=== PATIENT | male | born 1980 | race Caucasian/White ===

== ENCOUNTER 2021-12-20 14:22 | Emergency (ER) | payer OTHER, SELFPAY ==
[2021-12-20 14:25] VITALS: BP 144/92; PULSE 102; RESP 16; TEMP 36.8; O2SAT 97
--- NOTE | 2021-12-20 14:38 | ED.ANIMALBIT ---
HPI - Animal Bite General Chief Complaint: Animal Bite Stated Complaint: Animal Bite Time Seen by Provider: 12/20/21 14:24 History of Present Illness HPI narrative: 41-year-old male presents to the emergency room stating that he was bitten by a dog 4 days ago. Patient states dog was unknown to him, and appeared to be a pitbull terrier. Patient reports suffered multiple bites to his right posterior leg, has been treating with Tylenol and ibuprofen and frequently cleaning it with an iodine solution. Patient is a known diabetic. States today the leg became red and swollen. Denies calling law enforcement or animal control regarding the situation. Related Data Allergies Allergy/AdvReac Type Severity Reaction Status Date / Time No Known Allergies Allergy Verified 12/20/21 14:32 Review of Systems Review of Systems: CONSTITUTIONAL: Denies fever, chills, or sweats. EYES: Denies visual changes, redness, or discharge. ENT: Denies rhinorrhea, congestion, sore throat, or otalgia. CARDIOVASCULAR: Denies chest pain, palpitations, or edema. RESPIRATORY: Denies cough or dyspnea. GASTROINTESTINAL: Denies abdominal pain, nausea, vomiting, or diarrhea. GENITOURINARY: Denies dysuria or hematuria. SKIN: Denies rash or itching. Dog bite to posterior surface of her right lower leg MUSCULOSKELETAL: Denies back pain, joint pain, or myalgia. NEUROLOGIC: Denies headache, numbness, dizziness, or weakness. PSYCHIATRIC: Denies anxiety or depression. [facility] Past Medical History Medical History (Updated 12/20/21 @ 15:11 by Yaron Baker, INSTITUTIONAL ASSET MANAGER) Diabetes 1.5, managed as type 2 Exam Narrative: GENERAL: Well-appearing, well-nourished, and in no acute distress. HEAD: Normocephalic, atraumatic. EYES: PERRLA and EOMI. ENT: Nares clear, no rhinorrhea or epistaxis. Mucous membranes moist. Oropharynx without tonsillar hypertrophy exudate or other lesions. Bilateral TMs pearly cochran nonbulging NECK: Supple. No adenopathy or masses. No carotid bruits or JVD CHEST: Clear to auscultation. No respiratory distress. No wheezes rales or rhonchi HEART: Regular rate and rhythm. No murmur heard. Normal peripheral pulses. ABDOMEN: Soft, nontender, nondistended, normal active bowel sounds. EXTREMITIES: Normal range of motion. No edema. SKIN: Warm, dry, no rash. 1.5 cm linear laceration to posterior surface right lower extremity with surrounding soft tissue swelling and erythema NEURO: No focal deficits. Alert and oriented x3. PSYCH: Normal mood and affect. Course Vital Signs Vital signs: Vital Signs Temperature 36.8 C 12/20/21 14:25 Pulse Rate 102 H 12/20/21 14:25 Respiratory Rate 16 12/20/21 14:25 Blood Pressure 144/92 H 12/20/21 14:25 Pulse Oximetry 97 12/20/21 14:25 Temperature 36.8 C 12/20/21 14:25 Pulse Rate 102 H 12/20/21 14:25 Respiratory Rate 16 12/20/21 14:25 Blood Pressure 144/92 H 12/20/21 14:25 Pulse Oximetry 97 12/20/21 14:25 MDM - Animal Bite MDM Narrative Medical decision making narrative: 41-year-old status post dog bite 3 days ago. Wounds cleaned and dressed. White count slightly elevated 11.2. Glucose 258. Patient refused rabies treatment at this time discussed the risks and benefits of not getting treatment. Patient stated understanding. We will send patient home on a 10day course of clindamycin. Lab Data Result diagrams: 12/20/21 14:43 12/20/21 14:43 Labs: Lab Results 12/20/21 12/20/21 Range/Units 14:43 14:43 WBC 11.2 H (4.5-10.0) K/mm3 RBC 4.91 (4.6-6.20) M/mm3 Hgb 14.3 (14.0-18.0) g/dL Hct 42.0 (42.0-52.0) % MCV 85.5 (80-100) fl MCH 29.1 (26-34) pg MCHC 34.0 (32-36) g/dl RDW 12.9 (11.5-14.5) % Plt Count 339 (150-375) k/mm3 MPV 9.2 (7.4-10.4) fl Immature Gran % (Auto) 0.3 (0-0.5) % Neut % (Auto) 70.4 (45.5-73.1) % Lymph % (Auto) 15.0 L (18.3-44.2) % [place] % (Auto) 6.1 (2.6-8.5) % Eos % (Auto) 7.7 H
[2021-12-20] MEDS: CLINDAMYCIN 600 MG/D5W 50 ML 600 MG/50 ML PIGGYBACK 100 MG IVPB (14:44)
[2021-12-20] MEDS: TETANUS,DIPHTHERIA,AC PERTUSSIS ADULT (0.5 ML) BOOSTRIX IM (14:45)
[2021-12-20 14:51] LABS: Basophils Absolute Auto 0.1 K/mm3 (0.0-0.1); Basophils Percent Auto 0.5 % (0.2-1.2); Eosinophils Absolute Auto 0.9 K/mm3 (0-0.3); Eosinophils Percent Auto 7.7 % (0-4.4); Hemoglobin 14.3 g/dL (14.0-18.0); Immature Granulocyte Absolute 0.03 K/mm3 (0.00-0.031); Immature Granulocyte Percent A 0.3 % (0-0.5); Lymphocytes Absolute Auto 1.68 K/mm3 (0.9-3.2); Mean Corpuscular Hemoglobin 29.1 pg (26-34); Mean Corpuscular Volume 85.5 fl (80-100); Mean Platelet Volume 9.2 fl (7.4-10.4); Monocytes Absolute Auto 0.7 K/mm3 (0.1-0.6); Monocytes Percent Auto 6.1 % (2.6-8.5); Neutrophils Absolute Auto 7.9 K/mm3 (1.3-6.7); Neutrophils Percent Auto 70.4 % (45.5-73.1); Platelet Count Result 339 k/mm3 (150-375); Red Blood Count 4.91 M/mm3 (4.6-6.20); Red Cell Distribution Width 12.9 % (11.5-14.5); White Blood Count 11.2 K/mm3 (4.5-10.0)
--- NOTE | 2021-12-20 14:52 | PC.NURSE ---
cleansed patient right calf with normal saline. dried blood removed and the small puncture sites cleansed as well. gauze in place and secured with solis wrap. patient tolerated well
[2021-12-20 15:08] LABS: Alanine Aminotransferase 20 U/L (4-50); Albumin Level 4.2 g/dL (3.5-5.1); Alkaline Phosphatase 62 U/L (38-126); Anion Gap 9 mmol/L (8-16); Aspartate Amino Transferase 28 U/L (17-59); Bilirubin,Total 0.4 mg/dL (0.2-1.3); Blood Urea Nitrogen 7 mg/dL (9-20); Calcium 8.6 mg/dL (8.4-10.2); Carbon Dioxide 27 mmol/L (22-30); Chloride 101 mmol/L (98-107); Estimated Glomerular Filt Rate > 60; Glucose 258 mg/dL (65-110); Potassium 4.5 mmol/L (3.4-5.0); Sodium 137 mmol/L (137-145)
[2021-12-20 15:42] VITALS: BP 133/80; PULSE 90; RESP 20; TEMP 36.6; O2SAT 97
== END 2021-12-20 15:43 | disposition home or self-care (01) ==
LOC: ANHED 15:28
PROVIDERS: Emergency Provider Nurse Practitioner Family; PCP Internal Medicine
DX: S81.851A Open bite, right lower leg, initial encounter (principal); Z23 Encounter for immunization; E13.8 Other specified diabetes mellitus with unspecified complications; W54.0XXA Bitten by dog, initial encounter
CPT/HCPCS: 36415; 80053; 85025; 90471; 90715; 96365; 99284

== ENCOUNTER 2022-05-23 15:36 | Outpatient (CLI) | payer OTHER, SELFPAY ==
[2022-05-23 19:40] LABS: Alanine Aminotransferase 22 U/L (6-50); Albumin Level 4.2 g/dL (3.5-5.1); Alkaline Phosphatase 62 U/L (38-126); Anion Gap 7 mmol/L (8-16); Aspartate Amino Transferase 27 U/L (17-59); Bilirubin,Total 0.3 mg/dL (0.2-1.3); Blood Urea Nitrogen 14 mg/dL (9-20); Calcium 9.3 mg/dL (8.4-10.2); Carbon Dioxide 31 mmol/L (22-30); Chloride 97 mmol/L (98-107); Estimated Glomerular Filt Rate > 60; Glucose 363 mg/dL (65-110); Potassium 4.9 mmol/L (3.4-5.0); Sodium 135 mmol/L (137-145)
[2022-05-23 19:53] LABS: Basophils Absolute Auto 0.1 K/mm3 (0.0-0.1); Basophils Percent Auto 1.2 % (0.2-1.2); Eosinophils Absolute Auto 0.6 K/mm3 (0-0.3); Eosinophils Percent Auto 8.2 % (0-4.4); Hematocrit 44.8 % (42.0-52.0); Hemoglobin 14.7 g/dL (14.0-18.0); Immature Granulocyte Absolute 0.08 K/mm3 (0.00-0.031); Immature Granulocyte Percent A 1.2 % (0-0.5); Lymphocytes Absolute Auto 1.48 K/mm3 (0.9-3.2); Lymphocytes Percent Auto 21.4 % (18.3-44.2); Mean Corpuscular HGB Conc 32.8 g/dl (32-36); Mean Corpuscular Hemoglobin 28.6 pg (26-34); Mean Corpuscular Volume 87.2 fl (80-100); Mean Platelet Volume 9.6 fl (7.4-10.4); Monocytes Absolute Auto 0.8 K/mm3 (0.1-0.6); Monocytes Percent Auto 11.3 % (2.6-8.5); Neutrophils Absolute Auto 3.9 K/mm3 (1.3-6.7); Neutrophils Percent Auto 56.7 % (45.5-73.1); Platelet Count Result 331 k/mm3 (150-375); Red Blood Count 5.14 M/mm3 (4.6-6.20); Red Cell Distribution Width 13.3 % (11.5-14.5); White Blood Count 6.9 K/mm3 (4.5-10.0)
[2022-05-23 21:45] LABS: Creatinine Urine 56.2 mg/dL
[2022-05-23 21:49] LABS: MALB Creatinine Ratio 25.3 mg/g (0-30); Microalbumin Urine Random 14.2 mg/L (0-16.7)
[2022-05-23 22:02] LABS: Hemoglobin A1C 12.3 % (<5.7)
== END 2022-05-23 15:37 | disposition home or self-care (01) ==
LOC: ANHGOSHLAB 15:37
PROVIDERS: PCP Internal Medicine; Visit Provider Nurse Practitioner
DX: E10.9 Type 1 diabetes mellitus without complications (principal)
CPT/HCPCS: 36415; 80053; 82043; 83036; 85025

== ENCOUNTER 2022-07-05 13:44 | Outpatient (CLI) | payer OTHER, SELFPAY ==
--- NOTE | 2022-07-05 13:50 | ECHO_ITS ---
Patient Info Name: Jim Santos Age: 41 years : 1980 Gender: Male Ht: 71 in Wt: 215 lbs BSA: 2.23 m2 HR: 71 bpm BP: 146 / 90 mmHg Technical Quality: Good Exam Date: 07/05/2022 2:38 PM Exam Location: [facility] Patient Status: Outpatient Admit Date: 07/05/2022 Staff Ordering Physician: Karen Sim Etl Manager: Karen Melvin RDCS Attending Provider: Karen Sim Referring Physician: Chiquis MCCOY; Exam Type: CA echo doppler color flow Study Info Indications R01.1 - Cardiac murmur, unspecified Complete two-dimensional, color flow and Doppler transthoracic echocardiogram is performed. Summary 1. Complete two-dimensional, color flow and Doppler transthoracic echocardiogram is performed. 2. Left ventricular chamber dimension is mildly enlarged. 3. Left ventricular systolic function is globally mildly reduced, estimated at 45-50%. 4. The left ventricular diastolic function is grade I diastolic dysfunction. 5. Right ventricular systolic function is reduced based on abnormal TAPSE 1.6 cm. 6. 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 7. There is trace tricuspid valve regurgitation. 8. No pulmonary hypertension, estimated pulmonary arterial systolic pressure is 14 mmHg. Left Ventricle E/e' 7 is not elevated. Left ventricular chamber dimension is mildly enlarged. Left ventricular systolic function is globally mildly reduced, estimated at 45-50%. The left ventricular diastolic function is grade I diastolic dysfunction. Right Ventricle Right ventricular systolic function is reduced based on abnormal TAPSE 1.6 cm. Right ventricular chamber dimension is not well visualized. Left Atria Left atrial chamber dimension is normal. Right Atria Right atrial chamber dimension is normal. Atrial Septum Interatrial septal aneurysm with no evidence of shunting by color doppler. Aortic Valve The aortic valve is trileaflet. There is no aortic valve stenosis. There is no aortic valve regurgitation. Pulmonic Valve There is no pulmonic regurgitation. Mitral Valve There is no mitral valve stenosis. There is no mitral valve regurgitation. Tricuspid Valve There is trace tricuspid valve regurgitation. No pulmonary hypertension, estimated pulmonary arterial systolic pressure is 14 mmHg. Pericardium/Pleural There is no pericardial effusion. Inferior Vena Cava Normal inferior vena cava with >50% collapse upon inspiration consistent with normal right atrial pressure, 5 mmHg. Aorta The aortic root size at the sinus of Valsalva is normal. Left Ventricular Outflow Tract Name Value Normal LVOT 2D LVOT Diameter 2.2 cm LVOT Doppler LVOT Peak Gradient 3 mmHg LVOT Mean Gradient 2 mmHg LVOT VTI 15 cm LVOT VTI/AV VTI Ratio 1.0 LVOT Stroke Volume 53 ml LVOT CO 5.0 l/min LVOT CI 2.2 l/min/m2 Pulmonic Valve -----
== END 2022-07-05 13:45 | disposition home or self-care (01) ==
PROVIDERS: PCP Internal Medicine; Visit Provider Clinical Nurse Specialist
DX: R01.1 Cardiac murmur, unspecified (principal); Q24.9 Congenital malformation of heart, unspecified
CPT/HCPCS: 93306

== ENCOUNTER 2022-07-06 09:39 | Outpatient (CLI) | payer OTHER, SELFPAY ==
--- NOTE | ~2022-07-06 | MR_ITS ---
EXAMINATION: MR brain/brain stem wo/w con DATE: 07/06/2022 10:21 INDICATION: Reports of TIA like symptoms. TECHNIQUE: Magnetic resonance imaging (MRI) of the brain and brainstem was performed without and with 14 mL MultiHance intravenous contrast. Sequences included sagittal and axial T1-weighted SE, axial d iffusion-weighted FS EPI ASSET, axial T2*-weighted GRE, axial T2-weighted FLAIR Propeller, and axial T2-weighted Propeller. Postcontrast axial and coronal T1-weighted SE was obtained. Apparent diffusion coefficient (ADC) maps were created. COMPARISON: None. FINDINGS: No abnormal restricted diffusion to suggest acute ischemic infarct. No MRI evidence of hemorrhage or extra-axial collection. No suspicious foci of susceptibility to suggest prior intraparenchymal hemorr barber. No significant white matter change. No evidence of advanced or lobar predominant parenchymal vo lume loss. Basilar cisterns are patent. Flow voids are preserved. No abnormal intracranial enhancemen t. Mucosal thickening in the frontal, ethmoid and maxillary sinuses. Retention cysts or polyps in the right maxillary sinus. No abnormal enhancement. Posterior scalp lipoma. IMPRESSION: 1. No acute intracranial process. Reviewed, dictated and finalized at location K.
== END 2022-07-06 09:40 | disposition home or self-care (01) ==
PROVIDERS: PCP Internal Medicine; Visit Provider Clinical Nurse Specialist
DX: E10.9 Type 1 diabetes mellitus without complications (principal); R29.810 Facial weakness; R42 Dizziness and giddiness; Z82.3 Family history of stroke
CPT/HCPCS: 70553; A9577

== ENCOUNTER 2022-09-06 11:16 | Outpatient (CLI) | payer OTHER, SELFPAY ==
[2022-09-06 18:40] LABS: Hemoglobin A1C 9.5 % (<5.7)
[2022-09-06 19:15] LABS: Creatinine Urine 125.6 mg/dL
[2022-09-06 19:17] LABS: Anion Gap 18 mmol/L (8-16); Blood Urea Nitrogen 18 mg/dL (9-20); Calcium 9.7 mg/dL (8.4-10.2); Carbon Dioxide 28 mmol/L (22-30); Chloride 99 mmol/L (98-107); Estimated Glomerular Filt Rate > 60; Glucose 59 mg/dL (65-110); Potassium 3.7 mmol/L (3.4-5.0); Sodium 145 mmol/L (137-145)
[2022-09-06 19:24] LABS: MALB Creatinine Ratio 55.5 mg/g (0-30); Microalbumin Urine Random 69.7 mg/L (0-16.7)
== END 2022-09-06 11:17 | disposition home or self-care (01) ==
LOC: ANHGOSHLAB 11:18
PROVIDERS: PCP Internal Medicine; Referring Provider Nurse Practitioner; Visit Provider Clinical Nurse Specialist
DX: E11.9 Type 2 diabetes mellitus without complications (principal)
CPT/HCPCS: 36415; 80048; 82043; 83036

== ENCOUNTER 2022-09-16 14:26 | Outpatient (CLI) | payer OTHER, SELFPAY ==
[2022-09-16 17:42] LABS: HDL Direct 39 mg/dL
[2022-09-16 17:52] LABS: LDL Cholesterol Direct 142 mg/dL
[2022-09-16 18:12] LABS: Thyroid Stimulating Hormone 0.804 uIU/mL (0.465-4.680)
== END 2022-09-16 14:27 | disposition home or self-care (01) ==
LOC: ANHWCLAB 14:26
PROVIDERS: PCP Internal Medicine; Visit Provider Internal Medicine Endocrinology, Diabetes & Metabolism
DX: E10.65 Type 1 diabetes mellitus with hyperglycemia (principal)
CPT/HCPCS: 36415; 83718; 83721; 84443

== ENCOUNTER 2023-05-22 12:19 | Observation (INO) | payer OTHER, SELFPAY ==
[2023-05-22] VITALS (29 sets, daily range): BP systolic 119–158; BP diastolic 71–103; PULSE 95–113; RESP 12–22; TEMP 36.6–37; O2SAT 92–98; BMI 38.6
--- NOTE | ~2023-05-22 | XR_ITS ---
XR_KUBGTUBINS_CR INDICATION: Evaluate NG tube position. TECHNIQUE: Limited KUB perform for evaluating NG tube . COMPARISON: No prior studies for comparison. FINDINGS: NG tube tip in the stomach. Visualized bowel gas pattern is unremarkable.Moderate colonic fecal loading. IMPRESSION: 1: NG tube tip in the stomach. Reviewed, dictated and finalized at location A.
--- NOTE | ~2023-05-22 | US_ITS ---
US venous doppler [facility] DATE: 05/23/2023 13:21 INDICATION: Swelling of the upper extremities TECHNIQUE: Real-time and color flow imaging and Doppler analysis of the veins of the upper extremitie s COMPARISON: None FINDINGS: The internal jugular veins, subclavian veins, axillary, brachial, basilic, cephalic, radial and ulnar veins are patent bilaterally, with normal flow and augmentation and normal compression whe re applicable. IMPRESSION: No evidence of deep venous thrombosis of the upper extremities Reviewed, dictated and finalized at Location A. Reviewed, dictated and finalized at location B.
--- NOTE | ~2023-05-22 | CT_ITS ---
EXAMINATION: CT abdomen pelvis w con DATE: 05/22/2023 15:13 INDICATION: Abdominal pain TECHNIQUE: Computed tomography (CT) of the abdomen and pelvis was performed with 100 cc Omnipaque 350 intravenous contrast. The dose-length product was 1729.66 mGy-cm. Automated exposure control and ite rative reconstruction technique were employed. COMPARISON: CT dated 07/11/2018. FINDINGS: There is lower lobe atelectasis bilaterally. Heart size normal. No significant pleural or p ericardial effusion. There is moderate distention of the stomach which contains a large amount of manuel ris and fluid. No obstruction. Severely distended bladder. There are focal areas of decreased attenuation in the liver parenchyma of the right hepatic lobe, pos sibly focal fatty infiltration. The spleen, pancreas, adrenal glands and kidneys are unremarkable. No significant vascular abnormality. There are calcifications of the vas deferens. There is mild osteoa rthritis of the hips. No free air or free fluid. IMPRESSION: 1. Severely enlarged bladder. 2: Moderate gastric distention containing a large amount of debris and fluid. No obstruction identifi ed. Reviewed, dictated and finalized at location A. IMPRESSION: 1. Severely enlarged bladder. 2: Moderate gastric distention containing a large amount of debris and fluid. N o obstruction identified.
[2023-05-22 12:43] LABS: Glucose Point of Care > 500 mg/dl (65-105)
[2023-05-22 12:51] LABS: Basophils Percent Auto 0.1 % (0.2-1.2); Eosinophils Percent Auto 0.1 % (0-4.4); Hematocrit 44.2 % (42.0-52.0); Hemoglobin 14.6 g/dL (14.0-18.0); Immature Granulocyte Absolute 0.08 K/mm3 (0.00-0.031); Immature Granulocyte Percent A 0.5 % (0-0.5); Lymphocytes Absolute Auto 0.59 K/mm3 (0.9-3.2); Lymphocytes Percent Auto 3.9 % (18.3-44.2); Mean Corpuscular Hemoglobin 29.2 pg (26-34); Mean Corpuscular Volume 88.4 fl (80-100); Mean Platelet Volume 9.8 fl (7.4-10.4); Monocytes Absolute Auto 0.7 K/mm3 (0.1-0.6); Monocytes Percent Auto 4.5 % (2.6-8.5); Neutrophils Absolute Auto 13.8 K/mm3 (1.3-6.7); Neutrophils Percent Auto 90.9 % (45.5-73.1); Platelet Count Result 293 k/mm3 (150-375); Red Cell Distribution Width 12.6 % (11.5-14.5); White Blood Count 15.2 K/mm3 (4.5-10.0)
[2023-05-22] MEDS: SODIUM CHLORIDE 0.9% IV 1,000 ML 999 ML IV CONT (12:51)
[2023-05-22 13:00] LABS: Alveolar/Arterial O2 Gradient 35.3 mmHg; Base Excess ABG -1.5 mEq/l (+/-2.0); Carboxyhemoglobin 1.1 % THb (0-2.0); Fractional Inspired Oxygen 21 %; HCO3 ABG 23.8 mEq/l (22.0-26.0); Methemoglobin ABG 0.4 %THb (0-1.5); Oxygen Content ABG 18.9 %vol (16.0-22.0); Oxygen Saturation ABG 91.8 % (95.0-100.0); Oxyhemoglobin 90.5 % THb (90.0-100.0); PCO2 ABG 42.3 mmHg (35.0-45.0); PO2 ABG 63.8 mmHg (80.0-100.0); PO2 FiO2 Ratio Arterial Blood 3.04 %; Total Hemoglobin 14.9 g/dL (12.0-18.0); pH ABG 7.368 (7.350-7.450)
[2023-05-22 13:01] LABS: Device ROOM AIR; Site Drawn LEFT BRACHIAL
[2023-05-22 13:05] LABS: Alanine Aminotransferase 32 U/L (6-50); Albumin Level 4.3 g/dL (3.5-5.1); Alkaline Phosphatase 60 U/L (38-126); Anion Gap 10 mmol/L (8-16); Aspartate Amino Transferase 23 U/L (17-59); Bilirubin,Total 0.2 mg/dL (0.2-1.3); Blood Urea Nitrogen 17 mg/dL (9-20); Carbon Dioxide 25 mmol/L (22-30); Chloride 102 mmol/L (98-107); Estimated CRCL calculation 115 ml/min; Estimated Glomerular Filt Rate > 60; Glucose 519 mg/dL (65-110); Magnesium 2.2 mg/dL (1.6-2.3); Phosphorus 3.1 mg/dL (2.5-4.5); Potassium 4.5 mmol/L (3.4-5.0); Sodium 137 mmol/L (137-145)
[2023-05-22 13:06] LABS: Beta-Hydroxybutyrate/Acetoacetate 0.12 mmol/L (0.02-0.27)
[2023-05-22] MEDS: ONDANSETRON INJ 4 MG/2 ML VIAL 8 MG IV PUSH (13:28)
[2023-05-22 13:43] LABS: Appearance Urine Clear (Clear); Bacteria Urine 3+ /hpf; Bilirubin Urine Negative (Negative); Blood Urine Trace (Negative); Color Urine Yellow (Yellow); Glucose Urine UA 3+ mg/dL (Negative); Ketones Urine Negative (Negative); Leukocyte Esterase Ur Negative LEU/UL (Negative); Need Manual Microscopic Reviewed; Nitrate Urine Negative (Negative); Protein Urine Trace mg/dL (Negative); RBC Urine 0-2 /hpf (0-2); Squamous Epithelial Cell Urine None seen /hpf (Few); Urobilinogen Urine 0.2 mg/dL (<2.0); WBC Urine >100 /hpf
[2023-05-22 13:46] LABS: Specific Grav Ur 1.044 (1.001-1.035)
[2023-05-22 13:47] LABS: Add Urine Microscopic? YES
--- NOTE | 2023-05-22 13:47 | ED.GENADULT ---
HPI - General Adult General Chief complaint: Recheck/Abnormal Lab/Rx Stated complaint: hyperglycemia Time Seen by Provider: 05/22/23 13:08 Source: patient and family Limitations: no limitations History of Present Illness HPI narrative: 42 years old white male started on prednisone yesterday for possible poison dai, blood glucose reading today was high and patient was acting lethargic and tired. On arrival to the ED patient had vomited once, complaining also of abdominal pain. Related Data Allergies Allergy/AdvReac Type Severity Reaction Status Date / Time piperacillin Allergy Intermediate Itching Verified 05/22/23 12:37 tazobactam Allergy Intermediate Itching Verified 05/22/23 12:37 Review of Systems Review of Systems: All systems reviewed & are unremarkable except as noted in HPI and below PMFSH Past Medical History Medical History Type 1 diabetes Surgical History Surgical History Hx of appendectomy Hx of cholecystectomy Family History Family History Mother Cerebrovascular accident Sibling Cerebrovascular accident Social History Social History Smoking status: Never smoker Smokeless tobacco user: chewing tobacco Second hand tobacco smoke exposure: No Alcohol intake: never Substance use: current Substance use type: marijuana Spiritual care concerns: No Exam Narrative: General appearance: Well-developed, well-nourished Skin: Scattered hives all over mainly face Head: Normocephalic, nontraumatic Eyes: Clear conjunctiva ENT: Oropharynx normal, ears normal, nose normal Neck: Supple, nontender Chest and respiratory: Airway patent, no respiratory distress, no accessory muscle use few scattered rhonchi with intermittent coughing Heart: Regular rate/rhythm Abdomen: Soft, large, diffusely tender,, no organomegaly, quiet bowel sounds Vascular: Normal peripheral pulses, normal capillary refill. Musculoskeletal: Normal range of motion, nontender back Neurologic: Alert and oriented ?3, BATTERY REPAIRER is normal as tested, no gross motor deficit Course Consultations Consultation #1: Dr. Trejo Date: 05/22/23 Time: 18:46 Vital Signs Vital signs: Vital Signs Temperature 36.6 C 05/22/23 12:22 Pulse Rate 111 H 05/22/23 12:22 Respiratory Rate 17 05/22/23 12:22 Blood Pressure 141/94 H 05/22/23 12:22 Pulse Oximetry 94 05/22/23 12:22 Oxygen Delivery Room Air 05/22/23 12:22 Temperature 37.0 C 05/22/23 18:28 Pulse Rate 103 H 05/22/23 18:28 Respiratory Rate 14 05/22/23 18:28 Blood Pressure 135/79 05/22/23 18:28 Pulse Oximetry 98 05/22/23 18:28 Oxygen Delivery Room Air 05/22/23 12:22 Medical Decision Making MDM Narrative Medical decision making narrative: Patient presents with lethargy, itching, elevated blood glucose. Patient's type 2 diabetes, started on prednisone yesterday for contact dermatitis. Patient received 20 units of insulin prior to arrival to the emergency room. Physical examination showed maculopapular rash, hives all over. Large distended abdomen. Patient is not cooperative. His mother was at the bedside. IV fluid started, patient received 2.5 L of normal saline IV and blood glucose is still 390, IV insulin drip started. Patient reports some abdominal pain since yesterday Differential diagnosis: Contact dermatitis, hyperglycemia secondary to prednisone intake, infection, abdominal pain could be secondary to constipation, patient had history of cholecystectomy and Wo
[2023-05-22 14:07] LABS: Glucose Point of Care 391 mg/dl (65-105)
[2023-05-22] MEDS: EPINEPHrine HCL INJ 1 MG/ML AMPUL 0.3 MG IM (14:21)
[2023-05-22] MEDS: methylPREDNISolone SOD SUCC 40 MG VIAL IV PUSH (14:22)
[2023-05-22] MEDS: diphenhydrAMINE HCl INJ 50 MG/ML VIAL IV PUSH (14:22)
[2023-05-22] MEDS: INSULIN HUMAN REGULAR (*BKC) 100 UNITS in SODIUM CHLORIDE 0.9% IV 99 ML 6.62 UNITS IV CONT (14:43)
[2023-05-22 15:56] LABS: Glucose Point of Care 397 mg/dl (65-105)
[2023-05-22] MEDS: METOCLOPRAMIDE HCL INJ 10 MG/2 ML VIAL IV PUSH (16:37)
[2023-05-22] MEDS: LORazepam INJ (*CRX) 2 MG/ML VIAL 1 MG IV PUSH (16:40)
[2023-05-22 17:02] LABS: Glucose Point of Care 420 mg/dl (65-105)
--- NOTE | 2023-05-22 17:23 | PC.NURSE ---
Attempted NG insertion on this pt at 1640 , pt began gagging and vomiting. Pt then began begging for the procedure to be stopped. MD notified that pt could not tolerate at this time. Medications ordered and administered per order. After medications administered pt was asked if the procedure could be retried, pt still hesitant education provided as to benefit of procedure. notified and communicated to TERRAZZO WORKER Irina
[2023-05-22 17:57] LABS: Glucose Point of Care 378 mg/dl (65-105)
[2023-05-22] MEDS: SODIUM CHLORIDE 0.9% IV 1,000 ML 125 ML IV CONT ×2 (17:59→20:28)
--- NOTE | 2023-05-22 18:05 | ADMGEN ---
This patient, Jim Santos, was admitted to Intensive Care Unit-4. Patient/family oriented to hospital policies and general routines including ID bracelet, bed and alarms, visiting hours, pain management, procedures, bathroom and other care routines, personal items, smoking policy, room service/diet, and visiting hours. Information on how to activate the Rapid Response Team has been discussed. Patient/Family are encouraged to report perceived risks to care and to ask questions if they do not understand what they are told or what they should do.
--- NOTE | 2023-05-22 18:29 | PC.NURSE ---
[email or web address] Admission Note: The patient,Jim Santos,42 y/o, was given written information regarding hospital policies, unit procedures and contact persons. Patient's smoking status: Never smoker.
[2023-05-22 18:45] LABS: Glucose Point of Care 328 mg/dl (65-105)
--- NOTE | 2023-05-22 19:16 | PM.IMHP ---
H&P: HPI History of Present Illness Date/Time: 05/22/23 19:16 Chief Complaint: Abnormal lab Narrative: This is a 42-year-old male patient who has diabetes type 1. The patient's mother is at the bedside and she is answering questions for the patient. The patient is very somnolent. According to the patient's mother the patient had been in skilled nursing and his insulin had gotten change. She the mother stated that ever since he got out of skilled nursing he has been trying to get his blood sugars back down to normal. The patient was seen yesterday and treated for poison dai he was given prednisone. The patient has a rash all over his torso bilateral arms with swelling to his left arm. The patient had taken 6 of the tablets of the Medrol Dosepak yesterday and 3 today. The patient's blood sugar was high today and he was acting lethargic and tired. His abdomen was distended. The patient was complaining of abdominal pain. His white count was noted to be 15.2. Blood sugar was noted to be 519. Repeat Accu-Cheks were 397, 233 and 117. The patient has 3+ glucose in his urine. He has greater than 100 wbc's and 3+ bacteria. The patient was given a dose of Rocephin in the emergency room. The patient was given IV fluids, Zofran, epinephrine, Benadryl, Solu-Medrol, Reglan and Ativan. The forensic investigator had been consulted by the ED physician. The patient had been placed on a insulin drip. The patient does not have any anion gap. However his blood sugars were highly elevated the patient was lethargic. Abdominal pelvis CT was read as severely enlarged bladder. Moderate gastric distention containing a large amount of debris and fluid. No obstruction identified. An NG tube had been placed and was in the tip of the stomach. However the patient woke up in pulled the NG tube out refused another NG tube.. The patient is being admitted to observation status on the date of service of 05/22/2023 Review of Systems Review of Systems: All systems reviewed & are unremarkable except as noted in HPI and below Constitutional: Constitutional: Reports as per HPI and Reports no additional constitutional complaints Eyes: Eyes: Reports as per HPI and Reports no additional eye complaints ENT: Reports system reviewed and no additional complaints, except as documented and Reports Normal hearing present Cardiovascular: Cardiovascular: Reports no additional cardiovascular complaints Respiratory: Respiratory: Reports no additional respiratory complaints and Reports no additional respiratory complaints Gastrointestinal: Gastrointestinal: Reports as per HPI and Reports no additional gastrointestinal complaints Musculoskeletal: Musculoskeletal: Reports no additional musculoskeletal complaints Integumentary/Breasts: Skin/Breast: Reports system reviewed and no additional complaints, except as docu and Reports as per HPI Neurologic: Reports system reviewed and no additional complaints, except as documented, Reports as per HPI and Reports Normal hearing present Psychiatric: Psychiatric: Reports no additional psychiatric complaints and Reports as per HPI Endocrine: Endocrine: Reports no additional endocrine complaints Hematologic/Lymphatic: Hematologic/Lymphatic: Reports no additional hematologic/lymphatic complaints Allergic/Immunologic: Allergic/Immunologic: Reports no additional allergic/immunologic complaints PMF Past Medical History Medical History (Updated 05/22/23 @ 23:16 by Sallie Stephens NP) Chronic GERD Type 1 diabetes Surgical History Surgical History Hx of appendectomy Hx of cholecystectomy Family History Family History Mother Cerebrovascular accident Sibling Cerebrovascular accident Social History Social History (Updated 05/22/23 @ 23:07 by Sallie Stephens NP) Social History: The patient is single. He lives with his brother. He has 2 children
[2023-05-22 20:05] LABS: Glucose Point of Care 233 mg/dl (65-105)
[2023-05-22 20:59] LABS: Glucose Point of Care 173 mg/dl (65-105)
[2023-05-22 22:04] LABS: Glucose Point of Care 117 mg/dl (65-105)
--- NOTE | 2023-05-22 22:44 | PC.NURSE ---
Pt pulled out NG tube. States he is feeling better and is refusing to allow staff to replace NG. Notified LACEY Rizo.
[2023-05-22 23:05] LABS: Glucose Point of Care 91 mg/dl (65-105)
[2023-05-23] VITALS (13 sets, daily range): BP systolic 106–148; BP diastolic 62–85; PULSE 71–91; RESP 11–20; TEMP 36.4–36.9; O2SAT 92–100; BMI 37.7
[2023-05-23 00:09] LABS: Glucose Point of Care 86 mg/dl (65-105)
[2023-05-23] MEDS: INSULIN GLARGINE (*BKC) 100 UNITS/ML 20 UNITS SUB-Q (00:16)
[2023-05-23] MEDS: levoFLOXacin 500 MG/D5W 100 ML 500 MG/100 ML BAG 100 MG IVPB ×2 (00:22→23:50)
[2023-05-23 03:36] LABS: Glucose Point of Care 220 mg/dl (65-105)
[2023-05-23 04:53] LABS: Basophils Percent Auto 0.3 % (0.2-1.2); Eosinophils Percent Auto 0.1 % (0-4.4); Hematocrit 39.8 % (42.0-52.0); Hemoglobin 13.1 g/dL (14.0-18.0); Immature Granulocyte Absolute 0.12 K/mm3 (0.00-0.031); Immature Granulocyte Percent A 0.8 % (0-0.5); Lymphocytes Absolute Auto 1.08 K/mm3 (0.9-3.2); Lymphocytes Percent Auto 7.2 % (18.3-44.2); Mean Corpuscular HGB Conc 32.9 g/dl (32-36); Mean Corpuscular Hemoglobin 29.7 pg (26-34); Mean Corpuscular Volume 90.2 fl (80-100); Mean Platelet Volume 9.8 fl (7.4-10.4); Monocytes Absolute Auto 0.7 K/mm3 (0.1-0.6); Monocytes Percent Auto 4.9 % (2.6-8.5); Neutrophils Absolute Auto 13.1 K/mm3 (1.3-6.7); Neutrophils Percent Auto 86.7 % (45.5-73.1); Platelet Count Result 239 k/mm3 (150-375); Red Blood Count 4.41 M/mm3 (4.6-6.20); Red Cell Distribution Width 13.2 % (11.5-14.5); White Blood Count 15.1 K/mm3 (4.5-10.0)
[2023-05-23 05:03] LABS: Alanine Aminotransferase 24 U/L (6-50); Albumin Level 3.4 g/dL (3.5-5.1); Alkaline Phosphatase 44 U/L (38-126); Anion Gap 8 mmol/L (8-16); Aspartate Amino Transferase 18 U/L (17-59); Bilirubin,Total 0.2 mg/dL (0.2-1.3); Blood Urea Nitrogen 18 mg/dL (9-20); Calcium 7.9 mg/dL (8.4-10.2); Carbon Dioxide 24 mmol/L (22-30); Chloride 110 mmol/L (98-107); Estimated CRCL calculation 140 ml/min; Estimated Glomerular Filt Rate > 60; Glucose 236 mg/dL (65-110); Magnesium 2.1 mg/dL (1.6-2.3); Potassium 3.9 mmol/L (3.4-5.0); Sodium 142 mmol/L (137-145)
[2023-05-23] MEDS: INSULIN ASPART (*BKC) 100 UNITS/ML SUB-Q ×3 (05:23→22:01)
[2023-05-23 05:24] LABS: Glucose Point of Care 245 mg/dl (65-105)
[2023-05-23] MEDS: SODIUM CHLORIDE 0.9% IV 1,000 ML 125 ML IV CONT ×3 (05:24→23:50)
[2023-05-23 05:47] LABS: Thyroid Stimulating Hormone Reflex 0.233 uIU/mL (0.465-4.68)
[2023-05-23] MEDS: LACTATED RINGERS 1,000 ML 999 ML IV CONT (08:01)
[2023-05-23] MEDS: ENOXAPARIN 40 MG/0.4 ML SYRINGE SUB-Q (08:13)
[2023-05-23] MEDS: PANTOPRAZOLE SODIUM IV 40 MG VIAL IV PUSH ×2 (08:13→22:01)
[2023-05-23] MEDS: methylPREDNISolone SOD SUCC 125 MG VIAL 40 MG IV PUSH (08:14)
[2023-05-23 08:21] LABS: Free T4 Free Thyroxine Reflex 0.98 ng/dL (0.78-2.19)
--- NOTE | 2023-05-23 08:25 | WPDCNINT ---
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 According to the medical records patient was recently discharged from the alf 1 week ago, according to his mother he was not receiving the correct insulin in alf. -patient was given 2 L IV fluid bolus in the ER and started on insulin infusion for hyperglycemia. Patient did not have anion gap metabolic acidosis, beta hydroxybutyrate was within normal limits -patient also was being treated for poison dai on his upper extremities and torso with prednisone which could have led to elevation in his blood sugars. Patient also has a UTI -05/22: CT scan of the abdomen and pelvis showed severely enlarged bladder, moderate gastric distention containing large amount of debris and fluid, no obstruction identified -NG tube was inserted, once patient was more he pulled out the NG tube and refused reinsertion. -OFF INSULIN INFUSION since last night -received Lantus, will give additional dose of Lantus this morning -continue sliding scale insulin -diabetic diet -will have asset liability analyst evaluate the patient (2) Urinary tract infection: Qualifiers: Hematuria presence: without hematuria Urinary tract infection type: site unspecified Qualified Code(s): N39.0 - Urinary tract infection, site not specified Code(s): N39.0 - Urinary tract infection, site not specified Status: Acute Assessment and Plan: UA showed possible UTI, urine and blood cultures cultures have been obtained and pending, continue ceftriaxone -elevated WBC could be related to infection versus steroids (3) Contact dermatitis: Qualifiers: Contact dermatitis trigger: non-food plants Contact dermatitis type: allergic Qualified Code(s): L23.7 - Allergic contact dermatitis due to plants, except food Code(s): L25.9 - Unspecified contact dermatitis, unspecified cause Status: Acute Assessment and Plan: Patient has methylprednisolone, diphenhydramine -will add topical steroid cream (4) Urinary retention: Code(s): R33.9 - Retention of urine, unspecified Status: Acute Assessment and Plan: Hoover catheter in place with adequate urine output (5) Gastroparesis: Code(s): K31.84 - Gastroparesis Status: Acute Assessment and Plan: Patient with distention of his abdomen the CT scan. Patient was given Reglan in the ER -could be related to gastroparesis secondary to diabetes -continue to monitor -starting patient on diet Plan DVT prophylaxis: Lovenox Stress ulcer prophylaxis: Protonix Nutrition: Start diabetic diet Code Status: Full code Critical Care Time Spent: 46 minutes Due to a high probability of clinically significant, life threatening deterioration, the patient required my highest level of preparedness to intervene emergently and I personally spent this critical care time directly and personally managing the patient. This critical care time included obtaining a history; examining the patient; pulse oximetry; ordering and review of studies; arranging urgent treatment with development of a management plan; evaluation of patient's response to treatment; frequent reassessment; and discussions with other providers. It was exclusive of separately billable procedures and treating other patients and teaching time. Please see Assessment and Plan section and the rest of the note for further information on patient assessment and treatment This dictation may have been done utilizing a voice recognition system. Attempt
[2023-05-23 08:36] LABS: Hemoglobin A1C 10.2 % (<5.7)
[2023-05-23] MEDS: HYDROCORTISONE 1% 30 GM CREAM 1 APPLIC TOPICAL ×2 (09:06→17:50)
[2023-05-23] MEDS: INSULIN GLARGINE (*BKC) 100 UNITS/ML 10 UNITS SUB-Q (09:06)
[2023-05-23 11:13] LABS: Total Triiodothyronine (T3) 0.92 NG/ML (0.97-1.69)
[2023-05-23 11:38] LABS: Glucose Point of Care 186 mg/dl (65-105)
--- NOTE | 2023-05-23 14:02 | PC.NURSE ---
This patient, Jim Santos, was transferred to [ ] on 05/23/23 at 1345. Personal belongings sent with patient. Report given to RN. Appropriate documentation sent with patient.
--- NOTE | 2023-05-23 14:19 | ADMGEN ---
This patient, Jim Santos, was admitted to 3 Medical Room 343-01 from ICU -4 @ 1400. Rep[ort was taken From CHOLO Trevizo .Patient/family oriented to hospital policies and general routines including ID bracelet, bed and alarms, visiting hours, pain management, procedures, bathroom and other care routines, personal items, smoking policy, room service/diet, and visiting hours. Information on how to activate the Rapid Response Team has been discussed. Patient/Family are encouraged to report perceived risks to care and to ask questions if they do not understand what they are told or what they should do.
[2023-05-23 17:05] LABS: Glucose Point of Care 339 mg/dl (65-105)
[2023-05-23] MEDS: INSULIN ASPART (*BKC) 100 UNITS/ML 7 UNITS SUB-Q (17:43)
[2023-05-23] MEDS: ALBUTEROL SULFATE (*SP) AEROSOL 1 PUFF 2 PUFF INHALATION (18:09)
[2023-05-23 21:21] LABS: Glucose Point of Care 353 mg/dl (65-105)
[2023-05-23] MEDS: INSULIN GLARGINE (*BKC) 100 UNITS/ML 25 UNITS SUB-Q (22:01)
--- NOTE | 2023-05-23 23:46 | PC.NURSE ---
2249: notified pharmacy of missing levaquin. Shows not loaded in medication pyxis. Await med.
[2023-05-24 06:00] VITALS: BP 133/70; PULSE 68; RESP 20; TEMP 36.4; O2SAT 98
[2023-05-24 08:39] LABS: Glucose Point of Care 296 mg/dl (65-105)
[2023-05-24] MEDS: methylPREDNISolone SOD SUCC 125 MG VIAL 40 MG IV PUSH (08:57)
[2023-05-24] MEDS: SODIUM CHLORIDE 0.9% IV 1,000 ML 125 ML IV CONT (08:57)
[2023-05-24] MEDS: PANTOPRAZOLE SODIUM IV 40 MG VIAL IV PUSH (08:58)
[2023-05-24] MEDS: ENOXAPARIN 40 MG/0.4 ML SYRINGE SUB-Q (08:59)
[2023-05-24] MEDS: INSULIN ASPART (*BKC) 100 UNITS/ML 7 UNITS SUB-Q ×3 (09:17→17:15)
[2023-05-24] MEDS: INSULIN ASPART (*BKC) 100 UNITS/ML SUB-Q ×4 (09:17→21:30)
[2023-05-24] MEDS: HYDROCORTISONE 1% 30 GM CREAM 1 APPLIC TOPICAL ×2 (09:21→20:30)
--- NOTE | 2023-05-24 12:14 | PM.IMPN ---
Progress Note: A&P Assessment and Plan (1) Diabetes mellitus with hyperglycemia: Qualifiers: Diabetes mellitus moth exterminator insulin use: with moth exterminator use Diabetes mellitus type: type 2 Qualified Code(s): E11.65 - Type 2 diabetes mellitus with hyperglycemia; Z79.4 - prison (current) use of insulin Code(s): E11.65 - Type 2 diabetes mellitus with hyperglycemia Status: Acute Assessment and Plan: Patient presented with nausea, vomiting, abdominal pain, lethargy. According to the medical records patient was recently discharged from the [place] [facility] 1 [facility] ago, according to his mother he was not receiving the correct insulin in [facility]. -patient was given 2 L IV fluid bolus in the ER and started on insulin infusion for hyperglycemia. Patient did not have anion gap metabolic acidosis, beta hydroxybutyrate was within normal limits -patient also was being treated for poison dai on his upper extremities and torso with prednisone which could have led to elevation in his blood sugars. Patient also has a UTI -05/22: CT scan of the abdomen and pelvis showed severely enlarged bladder, moderate gastric distention containing large amount of debris and fluid, no obstruction identified -NG tube was inserted, once patient was more he pulled out the NG tube and refused reinsertion. -OFF INSULIN INFUSION since 05/22 PM -received Lantus, will give additional dose of Lantus this morning -continue sliding scale insulin -diabetic diet -diabetic education - 05/24 stopped levaquin as urine c/s negative (2) Contact dermatitis: Qualifiers: Contact dermatitis trigger: non-food plants Contact dermatitis type: allergic Qualified Code(s): L23.7 - Allergic contact dermatitis due to plants, except food Code(s): L25.9 - Unspecified contact dermatitis, unspecified cause Status: Acute Assessment and Plan: -05/24 stop iv steroids, topical triamcinolone, po loratadine, famotidine, cyproheptadine, prn IV diphenhydramine - edema of hands likely due to IVF, dermatitis, no sign of infection; cannot exclude angioedema but unlikely at this stage (3) Urinary retention: Code(s): R33.9 - Retention of urine, unspecified Status: Acute Assessment and Plan: Hoover catheter in place with adequate urine output 05/24 d/c Hoover for voiding trial (4) Gastroparesis: Code(s): K31.84 - Gastroparesis Status: Acute Assessment and Plan: Patient with distention of his abdomen the CT scan. Patient was given Reglan in the ER -could be related to gastroparesis secondary to diabetes -continue to monitor -tolerating diet Subjective Date/time seen: 05/24/23 12:14 Interval history: Hands puffy. Mild itching. Feels tired. Tolerated diet. No cp or sob. Swelling in hands. No gi/gu issues. No ABNL bleeding. No weakness. Review of Systems Review of Systems: All systems reviewed & are unremarkable except as noted in HPI and below Exam Narrative: HEENT: PERRL, sclerae nonicteric, pharyngeal mucosa pink and intact NECK: No JVD, CHEST: Clear to auscultation. Normal effort. HEART: NL S1/S2, regular, no murmur ABDOMEN: BS+, soft, nontender, no mass, no bruits EXTREMITIES: Nonpitting 3+ edema of hands. NEUROLOGIC: CN intact and symmetric to inspection. MUSCULOSKELETAL: Tone and strength symmetric. PSYCH: Alert. Oriented to person, place, and time. Objective Data Vital Signs Vital Signs: Vital Signs - 24 hr 05/23/23 14:00 05/23/23 16:54 05/23/23 18:10 Temperature 98.2 F Pulse Rate 76 78 80 Respiratory Rate 18 20 Blood Pressure 134/72 Pulse Oximetry 95 Oxygen Delivery 05/23/23 18:12 05/23/23 22:00 05/23/23 23:02 Temperature 98.4 F Pulse Rate 78 Respiratory Rate 20 Blood Pressure 117/62 Pulse Oximetry 97 98 97 Oxygen Delivery Room Air Room Air 05/24/23 06:00 05/24/23 08:00 Temperature 97.6 F Pulse Rate 68 Respiratory Rate 20 Blood Pressure 133/70 Pulse O
[2023-05-24 12:48] LABS: Glucose Point of Care 243 mg/dl (65-105)
[2023-05-24] MEDS: LORATADINE 10 MG TABLET PO (13:08)
[2023-05-24] MEDS: FUROSEMIDE INJ 40 MG/4 ML VIAL 20 MG IV PUSH (13:08)
[2023-05-24] MEDS: TRIAMCINOLONE ACET 0.5% OINT 15 GM TUBE 1 APPLIC TOPICAL ×2 (13:09→17:18)
[2023-05-24] MEDS: CYPROHEPTADINE HCL 4 MG TABLET PO ×3 (13:55→23:36)
[2023-05-24 14:48] VITALS: BP 114/71; PULSE 82; RESP 17; TEMP 36.4; O2SAT 98
[2023-05-24 17:23] LABS: Glucose Point of Care 367 mg/dl (65-105)
[2023-05-24] MEDS: FAMOTIDINE 20 MG TABLET 40 MG PO (20:30)
[2023-05-24 21:26] VITALS: BP 118/72; PULSE 72; RESP 18; TEMP 36.5; O2SAT 98
[2023-05-24] MEDS: INSULIN GLARGINE (*BKC) 100 UNITS/ML 25 UNITS SUB-Q (21:29)
[2023-05-24] MEDS: INSULIN ASPART (*BKC) 100 UNITS/ML 8 UNITS SUB-Q (21:29)
[2023-05-24 21:41] LABS: Glucose Point of Care 378 mg/dl (65-105)
[2023-05-24 22:08] VITALS: O2SAT 98
[2023-05-24 23:47] LABS: Glucose Point of Care 288 mg/dl (65-105)
[2023-05-25] MEDS: CYPROHEPTADINE HCL 4 MG TABLET PO ×3 (05:06→18:08)
[2023-05-25 06:00] VITALS: BP 129/61; PULSE 51; RESP 16; TEMP 36.4; O2SAT 97
[2023-05-25 08:20] LABS: Glucose Point of Care 309 mg/dl (65-105)
[2023-05-25 08:37] LABS: Hematocrit 43.8 % (42.0-52.0); Hemoglobin 14.6 g/dL (14.0-18.0); Mean Corpuscular HGB Conc 33.3 g/dl (32-36); Mean Corpuscular Hemoglobin 29.4 pg (26-34); Mean Corpuscular Volume 88.1 fl (80-100); Mean Platelet Volume 9.7 fl (7.4-10.4); Platelet Count Result 256 k/mm3 (150-375); Red Blood Count 4.97 M/mm3 (4.6-6.20); Red Cell Distribution Width 12.7 % (11.5-14.5); White Blood Count 9.2 K/mm3 (4.5-10.0)
[2023-05-25 08:54] LABS: Anion Gap 3 mmol/L (8-16); Blood Urea Nitrogen 16 mg/dL (9-20); Calcium 8.3 mg/dL (8.4-10.2); Carbon Dioxide 27 mmol/L (22-30); Chloride 101 mmol/L (98-107); Estimated CRCL calculation 141 ml/min; Estimated Glomerular Filt Rate > 60; Glucose 292 mg/dL (65-110); Sodium 131 mmol/L (137-145)
[2023-05-25] MEDS: INSULIN ASPART (*BKC) 100 UNITS/ML 7 UNITS SUB-Q ×3 (08:54→18:07)
[2023-05-25] MEDS: FAMOTIDINE 20 MG TABLET 40 MG PO ×2 (08:55→21:40)
[2023-05-25] MEDS: LORATADINE 10 MG TABLET PO (08:55)
[2023-05-25] MEDS: INSULIN ASPART (*BKC) 100 UNITS/ML SUB-Q ×4 (08:55→21:40)
[2023-05-25] MEDS: ENOXAPARIN 40 MG/0.4 ML SYRINGE SUB-Q (08:56)
--- NOTE | 2023-05-25 09:50 | PM.IMPN ---
Progress Note: A&P Assessment and Plan (1) Diabetes mellitus with hyperglycemia: Qualifiers: Diabetes mellitus remote computer terminal operator insulin use: with remote computer terminal operator use Diabetes mellitus type: type 2 Qualified Code(s): E11.65 - Type 2 diabetes mellitus with hyperglycemia; Z79.4 - snf (current) use of insulin Code(s): E11.65 - Type 2 diabetes mellitus with hyperglycemia Status: Acute Assessment and Plan: Patient presented with nausea, vomiting, abdominal pain, lethargy. According to the medical records patient was recently discharged from the [facility] 1 week ago, according to his mother he was not receiving the correct insulin in [facility]. -patient was given 2 L IV fluid bolus in the ER and started on insulin infusion for hyperglycemia. Patient did not have anion gap metabolic acidosis, beta hydroxybutyrate was within normal limits -patient also was being treated for poison dai on his upper extremities and torso with prednisone which could have led to elevation in his blood sugars. Patient also has a UTI -05/22: CT scan of the abdomen and pelvis showed severely enlarged bladder, moderate gastric distention containing large amount of debris and fluid, no obstruction identified -NG tube was inserted, once patient was more he pulled out the NG tube and refused reinsertion. -OFF INSULIN INFUSION since 05/22 PM -received Lantus, will give additional dose of Lantus this morning -continue sliding scale insulin -diabetic diet -diabetic education - 05/24 stopped levaquin as urine c/s negative -05/25 FBS 292, expect improvement as no longer receiving IV methylprenisolone (2) Contact dermatitis: Qualifiers: Contact dermatitis trigger: non-food plants Contact dermatitis type: allergic Qualified Code(s): L23.7 - Allergic contact dermatitis due to plants, except food Code(s): L25.9 - Unspecified contact dermatitis, unspecified cause Status: Acute Assessment and Plan: -05/24 stopped iv steroids, started topical triamcinolone, po loratadine, famotidine, cyproheptadine, prn IV diphenhydramine - edema of hands likely due to IVF, dermatitis, no sign of infection; cannot exclude angioedema but unlikely at this stage -05/25 hand edema and dermatitis improving, repeat iv furosemide 20mg x1 today -Anticipate discharge 05/26 if he continues to improve (3) Urinary retention: Code(s): R33.9 - Retention of urine, unspecified Status: Acute Assessment and Plan: Hoover catheter in place with adequate urine output 05/24 d/c Hoover for voiding trial 05/25 doing well w/o Hoover (4) Gastroparesis: Code(s): K31.84 - Gastroparesis Status: Acute Assessment and Plan: Patient with distention of his abdomen the CT scan. Patient was given Reglan in the ER -could be related to gastroparesis secondary to diabetes -continue to monitor -tolerating diet - 05/25 added laxatives for constipation Subjective Date/time seen: 05/25/23 09:50 Interval history: Hands puffy and tight still but a little better. Mild itching. Feels tired. Tolerated diet. No cp or sob. No gi/gu issues. No ABNL bleeding. No weakness. Review of Systems Review of Systems: All systems reviewed & are unremarkable except as noted in HPI and below Exam Narrative: HEENT: PERRL, sclerae nonicteric, pharyngeal mucosa pink and intact NECK: No JVD, CHEST: Clear to auscultation. Normal effort. HEART: NL S1/S2, regular, no murmur ABDOMEN: BS+, soft, nontender, no mass, no bruits EXTREMITIES: Nonpitting 3+ edema of right hand, 2+ left hand, mild nonpitting puffiness of ankles SKIN: Fading patchy erythema with excoriation on hands, forearms. NEUROLOGIC: CN intact and symmetric to inspection. MUSCULOSKELETAL: Tone and strength symmetric. PSYCH: Alert. Oriented to person, place, and time. Objective Data Vital Signs Vital Signs: Vital Signs - 24 hr 05/24/23 14:48 05/24/23 21:26 05/24/23 22:08 Temperature 97.5 F L 97.7 F
[2023-05-25] MEDS: polyethylene glycoL 3350 17 GM POWD.PACK PO (10:24)
[2023-05-25] MEDS: TRIAMCINOLONE ACET 0.5% OINT 15 GM TUBE 1 APPLIC TOPICAL ×3 (10:24→18:10)
[2023-05-25] MEDS: POTASSIUM CHLORIDE 20 MEQ ER TABLET PO (10:25)
[2023-05-25] MEDS: FUROSEMIDE INJ 40 MG/4 ML VIAL 20 MG IV PUSH (10:25)
[2023-05-25] MEDS: SENNOSIDES 8.6 MG TABLET PO (10:25)
[2023-05-25 12:13] LABS: Glucose Point of Care 328 mg/dl (65-105)
[2023-05-25 14:00] VITALS: BP 127/79; PULSE 80; RESP 17; TEMP 36.2; O2SAT 97
[2023-05-25 18:10] LABS: Glucose Point of Care 310 mg/dl (65-105)
[2023-05-25 20:00] VITALS: PULSE 85; RESP 18; O2SAT 94
[2023-05-25 20:05] LABS: Glucose Point of Care 377 mg/dl (65-105)
[2023-05-25] MEDS: INSULIN GLARGINE (*BKC) 100 UNITS/ML 25 UNITS SUB-Q (21:40)
[2023-05-25 22:00] VITALS: BP 108/72; PULSE 85; RESP 18; TEMP 37.1; O2SAT 94
[2023-05-26] MEDS: CYPROHEPTADINE HCL 4 MG TABLET PO ×3 (00:22→12:26)
[2023-05-26 05:58] VITALS: BP 123/76; PULSE 73; RESP 18; TEMP 37; O2SAT 100
[2023-05-26 06:45] LABS: Hematocrit 46.6 % (42.0-52.0); Hemoglobin 15.6 g/dL (14.0-18.0); Mean Corpuscular HGB Conc 33.5 g/dl (32-36); Mean Corpuscular Hemoglobin 28.9 pg (26-34); Mean Corpuscular Volume 86.5 fl (80-100); Mean Platelet Volume 9.7 fl (7.4-10.4); Platelet Count Result 257 k/mm3 (150-375); Red Blood Count 5.39 M/mm3 (4.6-6.20); Red Cell Distribution Width 12.6 % (11.5-14.5); White Blood Count 7.8 K/mm3 (4.5-10.0)
[2023-05-26 06:55] LABS: Anion Gap 3 mmol/L (8-16); Blood Urea Nitrogen 21 mg/dL (9-20); Calcium 8.4 mg/dL (8.4-10.2); Carbon Dioxide 28 mmol/L (22-30); Chloride 97 mmol/L (98-107); Estimated CRCL calculation 138 ml/min; Estimated Glomerular Filt Rate > 60; Glucose 398 mg/dL (65-110); Potassium 4.1 mmol/L (3.4-5.0); Sodium 128 mmol/L (137-145)
[2023-05-26 08:07] LABS: Glucose Point of Care 384 mg/dl (65-105)
[2023-05-26] MEDS: INSULIN ASPART (*BKC) 100 UNITS/ML SUB-Q ×2 (08:57→12:27)
[2023-05-26] MEDS: INSULIN ASPART (*BKC) 100 UNITS/ML 7 UNITS SUB-Q ×2 (08:57→12:26)
[2023-05-26] MEDS: SENNOSIDES 8.6 MG TABLET PO (08:58)
[2023-05-26] MEDS: FAMOTIDINE 20 MG TABLET 40 MG PO (08:58)
[2023-05-26] MEDS: LORATADINE 10 MG TABLET PO (08:58)
[2023-05-26] MEDS: ENOXAPARIN 40 MG/0.4 ML SYRINGE SUB-Q (08:59)
[2023-05-26] MEDS: TRIAMCINOLONE ACET 0.5% OINT 15 GM TUBE 1 APPLIC TOPICAL ×2 (09:01→12:27)
[2023-05-26 12:17] LABS: Glucose Point of Care 308 mg/dl (65-105)
[2023-05-26 14:00] VITALS: BP 113/62; PULSE 100; RESP 16; TEMP 36.4; O2SAT 98
--- NOTE | 2023-05-26 14:06 | PM.DS ---
DS: Admitting Diagnosis Discharge Date 05/26/23 0915 Admitting Diagnosis Hyperglycemia, rash DS: Discharge Diagnosis Discharge Diagnosis (1) Diabetes mellitus with hyperglycemia: Qualifiers: Diabetes mellitus rodent exterminator insulin use: with rodent exterminator use Diabetes mellitus type: type 2 Qualified Code(s): E11.65 - Type 2 diabetes mellitus with hyperglycemia; Z79.4 - superintendent marine oil terminal (current) use of insulin Code(s): E11.65 - Type 2 diabetes mellitus with hyperglycemia Status: Acute Assessment and Plan: Patient presented with nausea, vomiting, abdominal pain, lethargy. According to the medical records patient was recently discharged from the group home 1 week ago, according to his mother he was not receiving the correct insulin in group home. -patient was given 2 L IV fluid bolus in the ER and started on insulin infusion for hyperglycemia. Patient did not have anion gap metabolic acidosis, beta hydroxybutyrate was within normal limits -patient also was being treated for poison dai on his upper extremities and torso with prednisone which could have led to elevation in his blood sugars. Patient also has a UTI -05/22: CT scan of the abdomen and pelvis showed severely enlarged bladder, moderate gastric distention containing large amount of debris and fluid, no obstruction identified -NG tube was inserted, once patient was more he pulled out the NG tube and refused reinsertion. -OFF INSULIN INFUSION since 05/22 PM -received Lantus, will give additional dose of Lantus this morning -continue sliding scale insulin -diabetic diet -diabetic education - 05/24 stopped levaquin as urine c/s negative -05/25 FBS 292, expect improvement as no longer receiving IV methylprenisolone (2) Contact dermatitis: Qualifiers: Contact dermatitis trigger: non-food plants Contact dermatitis type: allergic Qualified Code(s): L23.7 - Allergic contact dermatitis due to plants, except food Code(s): L25.9 - Unspecified contact dermatitis, unspecified cause Status: Acute Assessment and Plan: -05/24 stopped iv steroids, started topical triamcinolone, po loratadine, famotidine, cyproheptadine, prn IV diphenhydramine - edema of hands likely due to IVF, dermatitis, no sign of infection; cannot exclude angioedema but unlikely at this stage -05/25 hand edema and dermatitis improving, repeat iv furosemide 20mg x1 today -Anticipate discharge 05/26 if he continues to improve (3) Urinary retention: Code(s): R33.9 - Retention of urine, unspecified Status: Acute Assessment and Plan: Hoover catheter in place with adequate urine output 05/24 d/c Hoover for voiding trial 05/25 doing well w/o Hoover (4) Gastroparesis: Code(s): K31.84 - Gastroparesis Status: Acute Assessment and Plan: Patient with distention of his abdomen the CT scan. Patient was given Reglan in the ER -could be related to gastroparesis secondary to diabetes -continue to monitor -tolerating diet - 05/25 added laxatives for constipation DS: Summary Hospital Course Hospital Course: patient is a 42-year-old male with a past medical history of diabetes incurred who presented to the ED with complaints lethargy, hyperglycemia and rash. Upon arrival to the ED was noted the patient's blood sugar was 519. The defensive line coach was consulted and patient was placed on an insulin drip. Patient recently started today Solu-Medrol Dosepak for poison dai. Patient was also noted to have a possible UTI with 100 white blood cells and 3+ bacteria. Patient was started on Rocephin and IV fluids. Patient was then put in the step-down. Abdominal pelvis CT was read as severely enlarged bladder. It was also noted that he had large amounts of debris and fluid. in gastric distension was also noted. NG tube was placed however patient did wake up and pull the NG tube out. Urine culture appear to be contaminant and Levaquin which was used for possible UTI had been stopped. Patient was als
== END 2023-05-26 16:37 | disposition home or self-care (01) ==
LOC: ANHED 14:11 → ANHICU 19:05 → ANH3MED 05-26 14:29 → ANHICU 05-27 12:17
PROVIDERS: Internal Medicine; Nurse Practitioner; Admitting Provider Family Medicine; Emergency Provider Emergency Medicine; PCP Internal Medicine; Visit Provider Chiropractor
DX: E11.65 Type 2 diabetes mellitus with hyperglycemia (principal); N39.0 Urinary tract infection, site not specified; L23.7 Allergic contact dermatitis due to plants, except food; N32.89 Other specified disorders of bladder; R33.9 Retention of urine, unspecified; K31.84 Gastroparesis; R14.0 Abdominal distension (gaseous); K21.9 Gastro-esophageal reflux disease without esophagitis; Z97.8 Presence of other specified devices; D72.829 Elevated white blood cell count, unspecified; M79.89 Other specified soft tissue disorders; F12.90 Cannabis use, unspecified, uncomplicated; R10.9 Unspecified abdominal pain; F17.290 Nicotine dependence, other tobacco product, uncomplicated; Z79.4 Long term (current) use of insulin; Z79.51 Long term (current) use of inhaled steroids; Z79.899 Other long term (current) drug therapy
CPT/HCPCS: 36415; 36600; 74177; 80048; 80053; 81001; 82010; 82375; 82805; 82948; 83036; 83050; 83605; 83735; 84100; 84439; 84443; 84480; 85025; 85027; 87040; 87086; 87088; 93970; 94640; 96361; 96365; 96366; 96368; 96372; 96374; 96375; 96376; 99285; A9270; C9113; G0378; G0379; J0171; J0696; J1200; J1650; J1815; J1940; J1956; J2060; J2405; J2765; J2920; J2930; J7030; J7120; Q9967

== ENCOUNTER 2023-06-05 14:47 | Outpatient (CLI) | payer OTHER, SELFPAY ==
[2023-06-05 15:40] LABS: Basophils Absolute Auto 0.1 K/mm3 (0.0-0.1); Basophils Percent Auto 0.5 % (0.2-1.2); Eosinophils Absolute Auto 0.6 K/mm3 (0-0.3); Eosinophils Percent Auto 3.3 % (0-4.4); Hematocrit 44.6 % (42.0-52.0); Immature Granulocyte Absolute 0.13 K/mm3 (0.00-0.031); Immature Granulocyte Percent A 0.8 % (0-0.5); Lymphocytes Absolute Auto 2.24 K/mm3 (0.9-3.2); Lymphocytes Percent Auto 13.1 % (18.3-44.2); Mean Corpuscular HGB Conc 33.6 g/dl (32-36); Mean Corpuscular Hemoglobin 29.5 pg (26-34); Mean Corpuscular Volume 87.6 fl (80-100); Mean Platelet Volume 9.8 fl (7.4-10.4); Monocytes Absolute Auto 1.3 K/mm3 (0.1-0.6); Monocytes Percent Auto 7.5 % (2.6-8.5); Neutrophils Absolute Auto 12.8 K/mm3 (1.3-6.7); Neutrophils Percent Auto 74.8 % (45.5-73.1); Platelet Count Result 324 k/mm3 (150-375); Red Blood Count 5.09 M/mm3 (4.6-6.20); White Blood Count 17.1 K/mm3 (4.5-10.0)
[2023-06-05 15:47] LABS: Alanine Aminotransferase 26 U/L (6-50); Albumin Level 4.1 g/dL (3.5-5.1); Alkaline Phosphatase 68 U/L (38-126); Anion Gap 4 mmol/L (8-16); Aspartate Amino Transferase 25 U/L (17-59); Bilirubin,Total 0.7 mg/dL (0.2-1.3); Blood Urea Nitrogen 13 mg/dL (9-20); Calcium 9.1 mg/dL (8.4-10.2); Carbon Dioxide 30 mmol/L (22-30); Chloride 96 mmol/L (98-107); Estimated Glomerular Filt Rate > 60; Glucose 368 mg/dL (65-110); Potassium 4.4 mmol/L (3.4-5.0); Sodium 130 mmol/L (137-145)
[2023-06-05 15:56] LABS: Appearance Urine Clear (Clear); Bacteria Urine None Seen /hpf; Bilirubin Urine Negative (Negative); Blood Urine Negative (Negative); Color Urine Yellow (Yellow); Glucose Urine UA 3+ mg/dL (Negative); Ketones Urine Negative (Negative); Leukocyte Esterase Ur Negative LEU/UL (Negative); Mucus Urine Present /lpf; Need Manual Microscopic Reviewed; Nitrate Urine Negative (Negative); Non Pathogenic Casts 0-2; Protein Urine Trace mg/dL (Negative); RBC Urine 0-2 /hpf (0-2); Specific Grav Ur 1.032 (1.001-1.035); Squamous Epithelial Cell Urine None seen /hpf (Few); Urobilinogen Urine 0.2 mg/dL (<2.0); WBC Urine 0-5 /hpf; pH Urine 5.5 (5.0-9.0)
[2023-06-05 15:58] LABS: Add Urine Microscopic? YES
== END 2023-06-05 14:48 | disposition home or self-care (01) ==
LOC: ANHGOSHLAB 14:48
PROVIDERS: PCP Internal Medicine; Visit Provider Nurse Practitioner
DX: E11.65 Type 2 diabetes mellitus with hyperglycemia (principal); R00.0 Tachycardia, unspecified
CPT/HCPCS: 36415; 80053; 81001; 85025

== ENCOUNTER 2023-06-05 16:02 | Inpatient (IN) | payer OTHER, SELFPAY ==
[2023-06-05] VITALS (21 sets, daily range): BP systolic 111–162; BP diastolic 56–98; PULSE 96–111; RESP 12–25; TEMP 36.8–37.1; O2SAT 96–100; BMI 36.8
--- NOTE | ~2023-06-05 | CT_ITS ---
EXAMINATION: CT facial bones w con DATE: 06/09/2023 13:36 INDICATION: Abscess in the nose. TECHNIQUE: Computed tomography (CT) of the facial bones and maxillofacial region was performed with 7 5 mL Omnipaque 350 intravenous contrast. Automated exposure control and iterative reconstruction tech [employer] were employed. The dose-length product was 638.78 mGy-cm. COMPARISON: CT abdomen and pelvis 06/05/2023 FINDINGS: There is mild bilateral cervical lymphadenopathy, likely reactive. There is a 10 x 5 x 5 mm rim-enhancing mass in the inferior aspect of the nose on the right. There is soft tissue swelling of the upper lobe. There is mucosal thickening in the paranasal sinuses. There is rightward deviation o f the nasal septum. IMPRESSION: 1. Stable 10 x 5 x 5 mm rim-enhancing mass in the inferior aspect of the nose on the right, consisten t with an abscess. 2. Mild bilateral cervical lymphadenopathy, likely reactive. Reviewed, dictated and finalized at location A. IMPRESSION: 1. Stable 10 x 5 x 5 mm rim-enhancing mass in the inferior aspect of the nose o n the right, consistent with an abscess. 2. Mild bilateral cervical lymphadenopathy, likely reactive.
--- NOTE | ~2023-06-05 | CT_ITS ---
EXAMINATION: CT facial bones w con DATE: 06/05/2023 18:44 INDICATION: right facial swelling, elevated BG . TECHNIQUE: Computed tomography (CT) of the facial bones and maxillofacial region was performed withou t intravenous contrast. Automated exposure control and iterative reconstruction technique were employ ed. The dose-length product was 374.58 mGy-cm. COMPARISON: None. FINDINGS: Soft Tissues: 8 mm rim-enhancing fluid collection in the soft tissues at the base of the nose, to th e right of midline, just to the right of the maxillary spine. Facial bones: No acute fracture. No lytic or blastic process. Eyes: The globes are intact. The soft tissue planes of the orbits are maintained. Paranasal Sinuses: Nodular mucosal thickening in all visualized paranasal sinuses. Aerated secretion s in the right sphenoid sinus. The mastoid air cells are clear.. Foreign Bodies: No radiopaque foreign bodies. Other Findings: None. IMPRESSION: 8 mm soft tissue abscess at the base of the nose, just to the right of the maxillary spine. Mucoperiosteal sinus disease with findings that may represent acute sphenoid sinusitis in the appropr iate clinical context. Reviewed, dictated and finalized at location K. IMPRESSION: 8 mm soft tissue abscess at the base of the nose, just to the right of the maxi llary spine. Mucoperiosteal sinus disease with findings that may represent acute sphenoid si nusitis in the appropriate clinical context.
--- NOTE | ~2023-06-05 | XR_ITS ---
EXAMINATION: XR chest 2V Exam Date/Time: 06/05/2023 18:40 CDT HISTORY: cough, fever Comparison: 07/11/2018. RESULT: Lines, tubes, and devices: None. Lungs and pleura: Clear. Cardiomediastinal silhouette: Stable. Other: No acute osseous or upper abdominal finding. IMPRESSION: No acute cardiopulmonary process. Reviewed, dictated and finalized at location K.
--- NOTE | 2023-06-05 17:55 | ED.GENADULT ---
HPI - General Adult General Chief complaint: Recheck/Abnormal Lab/Rx <Neil Joyce PA-C - Last Filed: 06/06/23 02:11> Stated complaint: abnormal labs <JODY Patino Last Filed: 06/06/23 02:11> Time Seen by Provider: 06/05/23 17:00 <JODY Patino Last Filed: 06/06/23 02:11> Source: patient <JODY Patino Last Filed: 06/06/23 02:11> Mode of arrival: ambulatory <JODY Patino Last Filed: 06/06/23 02:11> Limitations: no limitations <JODY Patino Last Filed: 06/06/23 02:11> History of Present Illness HPI narrative: This is a 42-year-old male with PMH of type 1 diabetes who presents to the ED with concern of high blood sugars and feeling ill over the past week. Patient was admitted to the ICU with DKA and discharged about 1 week ago. He states he is feeling unwell since discharge. He reports some swelling to his bilateral hands. He reports swelling to the right side of his face along with pain in that location as well. Reports mild cough. Nonproductive. Reports subjective fevers and chills. Endorses malaise. Denies abdominal pain, nausea, vomiting, diarrhea, urinary symptoms, headache, chest pain, leg swelling. Denies IV drug use. <Neil Joyce PA-C - Last Filed: 06/06/23 02:11> Related Data Home medications: Home Medications Medication Instructions Recorded Confirmed albuterol sulfate 90 mcg/actuation 2 inh inhalation Q4-6H PRN 05/22/23 06/05/23 breath activated powder inhaler Shortness Of Breath Or Wheezing omeprazole 20 mg capsule,delayed 20 mg PO DAILY 05/22/23 06/05/23 release glucagon 1 mg/0.2 mL subcutaneous 1 mg subcut PRN PRN Hypoglycemia 06/05/23 06/05/23 auto-injector (Gvoke HypoPen 2-Pack) insulin lispro 100 unit/mL 10 unit subcut TID 06/05/23 06/05/23 subcutaneous pen (Humalog KwikPen (U-100) Insulin) <Neil Joyce PA-C - Last Filed: 06/06/23 02:11> Allergies/adverse reactions: Allergies Allergy/AdvReac Type Severity Reaction Status Date / Time piperacillin Allergy Intermediate Itching Verified 06/05/23 13:50 tazobactam Allergy Intermediate Itching Verified 06/05/23 13:50 <Neil Joyce PA-C - Last Filed: 06/06/23 02:11> Review of Systems Review of Systems: All systems as dictated in HPI <Neil Joyce PA-C - Last Filed: 06/06/23 02:11> [facility] Past Medical History Medical History: Medical History (Updated 06/05/23 @ 20:23 by Neil Joyce PA-C) Chronic GERD Type 1 diabetes <Neil Joyce PA-C - Last Filed: 06/06/23 02:11> Surgical History Surgical History: Surgical History Hx of appendectomy Hx of cholecystectomy <Neil Joyce PA-C - Last Filed: 06/06/23 02:11> Family History Family History: Family History Mother Cerebrovascular accident Sibling Cerebrovascular accident <Neil Joyce PA-C - Last Filed: 06/06/23 02:11> Social History Social History: Social History (Updated 06/05/23 @ 14:11 by Consuelo Knott [facility]) Social History: The patient is single. He lives with his brother. He has 2 children. Lifelong nonsmoker. He uses marijuana. Code status full code. Smoking status: Never smoker Second hand tobacco smoke exposure: No Alcohol intake: never Substance use: current Substance use type: marijuana Lack of Transportation: No Lack of Food: Never True Current Housing: I Have Housing Concerned About Future Housing: No Difficulty Paying Gas/Electric Bills: No Difficulty Paying for Meds: No Currently Unemployed: No Education: High School Diploma/GED Difficulty w/ Childcare or Family Care: No Spiritual care concerns: No <Neil Joyce PA-C - Last Filed: 06/06/23 02:11> Exam Narrative: GENERAL: Well-appearing, well-nourished, and in no acute distress. HEAD: Normocep
[2023-06-05] MEDS: SODIUM CHLORIDE 0.9% IV 1,000 ML 999 ML IV CONT ×2 (18:12→20:15)
[2023-06-05 18:26] LABS: Basophils Absolute Auto 0.1 K/mm3 (0.0-0.1); Basophils Percent Auto 0.6 % (0.2-1.2); Eosinophils Absolute Auto 0.5 K/mm3 (0-0.3); Eosinophils Percent Auto 3.4 % (0-4.4); Hematocrit 44.5 % (42.0-52.0); Hemoglobin 14.8 g/dL (14.0-18.0); Immature Granulocyte Absolute 0.08 K/mm3 (0.00-0.031); Immature Granulocyte Percent A 0.6 % (0-0.5); Lymphocytes Absolute Auto 1.94 K/mm3 (0.9-3.2); Lymphocytes Percent Auto 13.5 % (18.3-44.2); Mean Corpuscular HGB Conc 33.3 g/dl (32-36); Mean Corpuscular Volume 87.3 fl (80-100); Mean Platelet Volume 9.5 fl (7.4-10.4); Monocytes Absolute Auto 1.1 K/mm3 (0.1-0.6); Monocytes Percent Auto 7.7 % (2.6-8.5); Neutrophils Absolute Auto 10.7 K/mm3 (1.3-6.7); Neutrophils Percent Auto 74.2 % (45.5-73.1); Platelet Count Result 311 k/mm3 (150-375); Red Cell Distribution Width 12.8 % (11.5-14.5); White Blood Count 14.4 K/mm3 (4.5-10.0)
[2023-06-05 18:35] LABS: Lactic Acid Reflex 1.5 mmol/L (0.7-2.0)
[2023-06-05 18:36] LABS: Estimated CRCL calculation 102 ml/min; Estimated Glomerular Filt Rate > 60
[2023-06-05 18:48] LABS: Alanine Aminotransferase 26 U/L (6-50); Albumin Level 4.2 g/dL (3.5-5.1); Alkaline Phosphatase 61 U/L (38-126); Anion Gap 6 mmol/L (8-16); Aspartate Amino Transferase 19 U/L (17-59); Bilirubin,Total 0.7 mg/dL (0.2-1.3); Blood Urea Nitrogen 14 mg/dL (9-20); Calcium 9.2 mg/dL (8.4-10.2); Carbon Dioxide 29 mmol/L (22-30); Chloride 97 mmol/L (98-107); Estimated CRCL calculation 123 ml/min; Estimated Glomerular Filt Rate > 60; Glucose 243 mg/dL (65-110); Sodium 132 mmol/L (137-145)
[2023-06-05 18:54] LABS: Beta-Hydroxybutyrate/Acetoacetate 0.06 mmol/L (0.02-0.27)
--- NOTE | 2023-06-05 19:57 | PM.IMHP ---
H&P: HPI History of Present Illness Date/Time: 06/05/23 19:57 Chief Complaint: nose abscess Narrative: This is a 42-year-old male with past medical history significant for type diabetes mellitus, insulin dependent, obesity. patient presents to the emerge due to right-sided nasolabial swelling, no discharge, tender. Denies fevers ,rigors, chills ,nausea, vomiting, diarrhea. patient found to have an abscess in this area. admitted of for IV antibiotics further evaluation management and treatment. Plastic surgeon consult in a.m. as well. EXAMINATION: CT facial bones w con DATE: 06/05/2023 18:44 INDICATION: right facial swelling, elevated BG . TECHNIQUE: Computed tomography (CT) of the facial bones and maxillofacial region was performed without intravenous contrast. Automated exposure control and iterative reconstruction technique were employed. The dose-length product was 374.58 mGy-cm. COMPARISON: None. FINDINGS: Soft Tissues:? 8 mm rim-enhancing fluid collection in the soft tissues at the base of the nose, to the right of midline, just to the right of the maxillary spine. Facial bones:? No acute fracture. No lytic or blastic process. Eyes:? The globes are intact.? The soft tissue planes of the orbits are maintained. Paranasal Sinuses:? Nodular mucosal thickening in all visualized paranasal sinuses. Aerated secretions in the right sphenoid sinus. The mastoid air cells are clear.. Foreign Bodies:? No radiopaque foreign bodies. Other Findings: None. IMPRESSION: 8 mm soft tissue abscess at the base of the nose, just to the right of the maxillary spine. Mucoperiosteal sinus disease with findings that may represent acute sphenoid sinusitis in the appropriate clinical context. EXAMINATION:? XR chest 2V Exam Date/Time:? 06/05/2023 18:40 CDT HISTORY: cough, fever ? Comparison:? 07/11/2018. RESULT: Lines, tubes, and devices:? None. Lungs and pleura:? Clear. Cardiomediastinal silhouette:? Stable. Other:? No acute osseous or upper abdominal finding. ? IMPRESSION: No acute cardiopulmonary process. Review of Systems Review of Systems: right-sided nasolabial swelling, tenderness ,warmth, redness. Constitutional: Constitutional: Denies chills, Denies fatigue, Denies fever(s), Denies malaise, Denies night sweats and Denies weakness Eyes: Eyes: Denies change in vision ENT: Denies dysphagia, Denies vertigo and Denies dizziness Cardiovascular: Cardiovascular: Denies radiating jaw, neck or arm pain, Denies palpitations and Denies dyspnea on exertion Respiratory: Respiratory: Denies chest congestion, Denies cough, Denies excessive phlegm production and Denies dyspnea Gastrointestinal: Gastrointestinal: Denies dyspepsia, Denies heartburn, Denies diarrhea, Denies nausea and Denies vomiting Genitourinary: Genitourinary: Denies dysuria Musculoskeletal: Musculoskeletal: Denies back pain, Denies arthralgias and Denies joint swelling Integumentary/Breasts: Skin/Breast: Reports swelling ( right nostril), Reports skin pain and Reports skin swelling Endocrine: Endocrine: Denies cold intolerance, Denies fatigue, Denies flushing, Denies heat intolerance, Denies polyphagia, Denies polydipsia and Denies palpitations Hematologic/Lymphatic: Hematologic/Lymphatic: Reports no additional hematologic/lymphatic complaints and Reports as per HPI Allergic/Immunologic: Allergic/Immunologic: Reports no additional allergic/immunologic complaints and Reports as per HPI PMFSH Past Medical History Medical History (Updated 06/05/23 @ 20:23 by Neil Joyce PA-C) Chronic GERD Type 1 diabetes Surgical History Surgical History Hx of appendectomy Hx of cholecystectomy Family History Family History Mother Cerebrovascular accident Sibling Cerebrovascular accident Social History Social History (Up
[2023-06-05] MEDS: CLINDAMYCIN 450 MG in DEXTROSE 5% IN WATER 50 ML 106 MG IVPB (20:40)
[2023-06-05] MEDS: CEFEPIME 1 GM/NS 50 ML 1 GM/50 ML BAG IVPB (20:41)
--- NOTE | 2023-06-05 21:42 | ADMGEN ---
This patient, Jim Santos, was admitted to 3 [facility] Surg Room 326-01. Patient/family oriented to hospital policies and general routines including ID bracelet, bed and alarms, visiting hours, pain management, procedures, bathroom and other care routines, personal items, smoking policy, room service/diet, and visiting hours. Information on how to activate the Rapid Response Team has been discussed. Patient/Family are encouraged to report perceived risks to care and to ask questions if they do not understand what they are told or what they should do.
[2023-06-05 22:08] LABS: Glucose Point of Care 242 mg/dl (65-105)
[2023-06-05] MEDS: LACTATED RINGERS 1,000 ML 125 ML IV CONT (23:52)
[2023-06-06] MEDS: INSULIN GLARGINE (*BKC) 100 UNITS/ML 60 UNITS SUB-Q ×2 (00:09→17:03)
--- NOTE | 2023-06-06 00:19 | PC.NURSE ---
Pt wanted to use walt for blood sugar at this time. Biood Sugar showed 358.
[2023-06-06 06:00] VITALS: BP 167/76; PULSE 91; RESP 20; TEMP 36.8; O2SAT 95
[2023-06-06 06:36] LABS: Estimated CRCL calculation 138 ml/min; Estimated Glomerular Filt Rate > 60
[2023-06-06 07:55] LABS: Glucose Point of Care 288 mg/dl (65-105)
[2023-06-06] MEDS: LACTATED RINGERS 1,000 ML 125 ML IV CONT (09:38)
[2023-06-06] MEDS: PANTOPRAZOLE 40 MG TABLET PO (09:40)
[2023-06-06] MEDS: SENNOSIDES 8.6 MG TABLET PO (09:40)
[2023-06-06] MEDS: INSULIN ASPART (*BKC) 100 UNITS/ML 10 UNITS SUB-Q ×3 (09:40→17:04)
[2023-06-06] MEDS: FAMOTIDINE 20 MG TABLET 40 MG PO ×2 (09:40→20:54)
[2023-06-06] MEDS: LORATADINE 10 MG TABLET PO (09:40)
--- NOTE | 2023-06-06 10:51 | WPDCN ---
Assessment and Plan Assessment and plan (1) Cellulitis: Code(s): L03.90 - Cellulitis, unspecified Status: Acute Assessment and Plan: He would like to monitor today for improvement. Consider I&D (bedside) tomorrow if no improvement or any worsening. Today we had a lengthy discussion about his options. Went over th risks, benefits, alternatives of each. Answered all questions. Would like to trial antibiotics today. Will re-evaluate in AM. (2) Abscess: Code(s): L02.91 - Cutaneous abscess, unspecified Status: Acute (3) Type 1 diabetes mellitus with hyperglycemia: Code(s): E10.65 - Type 1 diabetes mellitus with hyperglycemia Status: Acute HPI Data of Consult Date/Time: 06/06/23 10:51 Requesting Physician: Melchor Dominguez MD Primary Care Provider: Nick Lugo DO Consult Narrative Reason for consult: Infection right upper lip / nasal base Narrative: Jim Santos is a 42 year old male who presented to the ER yesterday. He has a history of type 1 diabetes who was ill feeling over the last week. Last week was in the ICU with DKA / poison dai. Has noticed swelling of the right side of face. No specific injuries. Today no chills. No n/v. Uncomfortable. CT scan reviewed. [facility] Past Medical History Medical History (Updated 06/05/23 @ 20:23 by Neil Joyce PA-C) Chronic GERD Type 1 diabetes Surgical History Surgical History Hx of appendectomy Hx of cholecystectomy Family History Family History Mother Cerebrovascular accident Sibling Cerebrovascular accident Social History Social History (Updated 06/05/23 @ 14:11 by Consuelo Knott CMA) Social History: The patient is single. He lives with his brother. He has 2 children. Lifelong nonsmoker. He uses marijuana. Code status full code. Smoking status: Never smoker Second hand tobacco smoke exposure: No Alcohol intake: never Substance use: current Substance use type: marijuana Lack of Transportation: No Lack of Food: Never True Current Housing: I Have Housing Concerned About Future Housing: No Difficulty Paying Gas/Electric Bills: No Difficulty Paying for Meds: No Currently Unemployed: No Education: High School Diploma/GED Difficulty w/ Childcare or Family Care: No Spiritual care concerns: No Meds Home Medications and Allergies Home Medications Medication Instructions Recorded Confirmed Type albuterol sulfate 90 mcg/actuation 2 inh inhalation Q4-6H PRN 05/22/23 06/05/23 History breath activated powder inhaler Shortness Of Breath Or Wheezing omeprazole 20 mg capsule,delayed 20 mg PO DAILY 05/22/23 06/05/23 History release cyproheptadine 4 mg tablet 4 mg PO Q6HR #30 tabs 05/26/23 06/05/23 Rx famotidine 20 mg tablet 40 mg PO Q12HR #60 tabs 05/26/23 06/05/23 Rx loratadine 10 mg tablet 10 mg PO QAM #30 tabs 05/26/23 06/05/23 Rx sennosides 8.6 mg tablet (Senokot) 8.6 mg PO DAILY #30 tabs 05/26/23 06/05/23 Rx doxycycline hyclate 100 mg tablet 100 mg PO BID #20 tabs 06/05/23 06/05/23 Rx glucagon 1 mg/0.2 mL subcutaneous 1 mg subcut PRN PRN Hypoglycemia 06/05/23 06/05/23 History auto-injector (Gvoke HypoPen 2-Pack) insulin glargine 100 unit/mL (3 60 unit (0.6 mL) subcut QPM 90 06/05/23 06/05/23 Rx mL) subcutaneous pen (Lantus days #54 mL Solostar U-100 Insulin) insulin lispro 100 unit/mL 10 unit subcut TID 06/05/23 06/05/23 History subcutaneous pen (Humalog KwikPen (U-100) Insulin) Allergies Allergy/AdvReac Type Severity Reaction Status Date / Time piperacillin Allergy Intermediate Itching Verified 06/05/23 13:50 tazobactam Allergy Intermediate Itching Verified 06/05/23 13:50 Vital Signs Vital Signs - 24 hr 06/05/23 16:10 06/05/23 16:32 06/05/23 16:56 Temperature 37.1 C Pulse Rate 111 H 103 H
[2023-06-06] MEDS: MORPHINE SULFATE (*CRX) 4 MG/ML INJ IV PUSH ×3 (10:52→20:52)
[2023-06-06 11:51] LABS: Glucose Point of Care 292 mg/dl (65-105)
--- NOTE | 2023-06-06 13:34 | PM.IMPN ---
Progress Note: A&P Assessment and Plan (1) Abscess: Code(s): L02.91 - Cutaneous abscess, unspecified Status: Acute Assessment and Plan: IV antibiotics Await plan from Plastic surgery (2) Cellulitis: Code(s): L03.90 - Cellulitis, unspecified Status: Acute (3) Chronic GERD: Code(s): K21.9 - Gastro-esophageal reflux disease without esophagitis Status: Acute (4) Gastroparesis: Code(s): K31.84 - Gastroparesis Status: Acute (5) Type 1 diabetes mellitus with hyperglycemia: Code(s): E10.65 - Type 1 diabetes mellitus with hyperglycemia Status: Acute Subjective Date/time seen: 06/06/23 13:34 Interval history: No new issues Exam Narrative: patient is sitting in a stretcher Const: General: comfortable, no acute distress, well developed, alert, awake and obese Nutritional Appearance: obese Orientation/consciousness: patient oriented x3 HENMT: Head: normal to inspection, normocephalic and atraumatic Ears: hearing grossly normal bilaterally Face/Nose/Sinus: normal facial exam, face symmetric, erythema (R nasolabial area) and edema Face and sinus: normal facial exam, face symmetric, erythema (R nasolabial area) and edema Eyes: General: appearance normal, both eyes and all related structures Pupils: Equal, round and reactive pupils present EOM: EOMs intact bilaterally Neck: Neck: full ROM, no lymphadenopathy and no JVD Thyroid: thyroid normal Lymphatic: no lymphadenopathy noted Resp: Effort & Inspection: normal respiratory effort and able to speak in complete sentences Auscultation: clear to auscultation bilaterally Cardio: Jugular venous distension: no JVD Rate: regular rate Rhythm: regular rhythm Heart sounds: S1 normal heart sound present and S2 normal heart sound present GI: Inspection: Pannus present and obesity : General: Yes deferred Skin: General skin exam: erythema (R nasolabial area) Rashes: no rashes Wounds: no wounds Neuro: General: patient oriented x3, CN's II-XI intact bilaterally and Unable to assess gait Cranial nerves: Yes CN's II-XII intact bilaterally and Yes Equal, round and reactive pupils present Cognition (Neuro): normal cognition Speech: normal speech Gait exam (Neuro): Normal gait present and Unable to assess gait Motor exam (neuro): 5/5 motor strength present throughout Extrem: General: normal to inspection, full ROM, no joint enlargement and no pedal edema Objective Data Vital Signs Vital Signs: Vital Signs - 24 hr 06/05/23 16:10 06/05/23 16:32 06/05/23 16:56 Temperature 98.8 F Pulse Rate 111 H 103 H 100 Respiratory Rate 16 19 16 Blood Pressure 142/86 H Pulse Oximetry 96 96 97 Oxygen Delivery Room Air 06/05/23 17:00 06/05/23 17:01 06/05/23 17:21 Temperature Pulse Rate 99 107 H 100 Respiratory Rate 16 15 17 Blood Pressure 119/86 Pulse Oximetry 100 98 98 Oxygen Delivery 06/05/23 17:30 06/05/23 17:31 06/05/23 17:45 Temperature Pulse Rate 99 99 102 H Respiratory Rate 17 18 16 Blood Pressure 130/83 111/80 Pulse Oximetry 99 98 97 Oxygen Delivery 06/05/23 17:46 06/05/23 18:00 06/05/23 18:45 Temperature Pulse Rate 101 H 101 H 100 Respiratory Rate 12 14 25 H Blood Pressure Pulse Oximetry 99 100 100 Oxygen Delivery 06/05/23 18:46 06/05/23 19:14 06/05/23 19:15 Temperature Pulse Rate 103 H 102 H 100 Respiratory Rate 15 23 H Blood Pressure 148/91 H 162/98 H Pulse Oximetry 100 98 98 Oxygen Delivery 06/05/23 19:31 06/05/23 19:51 06/05/23 20:18 Temperature Pulse Rate 104 H 101 H Respiratory Rate 17 16 Blood Pressure 161/89 H Pulse Oximetry 98 97 100 Oxygen Delivery 06/05/23 20:35 06/05/23 22:00 06/05/23 21:50 Temperature 98.2 F Pulse Rate 96 97 97 Respiratory Rate 16 20 20 Blood Pressure 134/80 140/56 L Pulse Oximetry 98 96 96 Oxygen Delivery Room Air 06/06/23 06:00 Temperature 98.2 F Pulse Rate 91
[2023-06-06 14:57] VITALS: BP 147/80; PULSE 91; RESP 16; TEMP 36.7; O2SAT 97
[2023-06-06 16:54] LABS: Glucose Point of Care 298 mg/dl (65-105)
[2023-06-06 20:40] VITALS: PULSE 91; RESP 16; O2SAT 97
[2023-06-06 21:16] LABS: Glucose Point of Care 237 mg/dl (65-105)
[2023-06-06 22:00] VITALS: BP 154/76; PULSE 95; RESP 16; TEMP 36.4; O2SAT 98
[2023-06-07] MEDS: LACTATED RINGERS 1,000 ML 125 ML IV CONT ×2 (00:22→08:40)
[2023-06-07] MEDS: MORPHINE SULFATE (*CRX) 4 MG/ML INJ IV PUSH ×9 (00:31→23:04)
[2023-06-07 06:00] VITALS: BP 146/84; PULSE 92; RESP 16; TEMP 36.2; O2SAT 94
[2023-06-07 07:48] LABS: Glucose Point of Care 131 mg/dl (65-105)
--- NOTE | 2023-06-07 08:05 | WPDPN ---
Progress Note: A&P Assessment and Plan (1) Abscess: Code(s): L02.91 - Cutaneous abscess, unspecified Status: Acute Assessment and Plan: He would like proceed with I& D. This is completed today. Plan for d/c home once improved. Care per hospitalist. Today again and we had a lengthy discussion about his options. Went over the risks, benefits, alternatives. He understands this may not resolve his symptoms. Understands this will leave a scar. We discussed neurovascular and other structure injury in long-term disability and complications that can come from this. Was very up front honest about this. Lengthy conversation about his options. All questions answered. Consent obtained. He would like proceed. He tolerated well. Afterwards he was able to purse lip. No complaints. (2) Cellulitis: Code(s): L03.90 - Cellulitis, unspecified Status: Acute Subjective Date/time seen: 06/07/23 08:05 Interval history: Overnight he says he has done well however continues to have significant pain at the base of the right nose upper lip. He does not feel like there has been any improvement. Exam Narrative: Right upper lip with significant edema present. Erythema right at the base. Very tender. Objective Data Vital Signs Vital Signs: Vital Signs - 24 hr 06/06/23 14:57 06/06/23 09:40 06/06/23 20:40 Temperature 36.7 C Pulse Rate 91 91 Respiratory Rate 16 16 Blood Pressure 147/80 H Pulse Oximetry 97 97 Oxygen Delivery Room Air Room Air 06/06/23 22:00 06/07/23 06:00 Temperature 36.4 C 36.2 C L Pulse Rate 95 92 Respiratory Rate 16 16 Blood Pressure 154/76 H 146/84 H Pulse Oximetry 98 94 Oxygen Delivery Intake/Output Intake/Output: Intake & Output 06/04/23 06/05/23 06/06/23 06/07/23 23:59 23:59 23:59 23:59 Intake Total 2103 3870 422 Output Total 900 Balance 2103 3200 422 Meds/Results Medications: Active Medications Generic Name Dose Route Start Last Admin Trade Name Freq PRN Reason Stop Dose Admin Albuterol 2 puff 06/05/23 23:46 Albuterol Sulfate (*Sp) Aerosol 1 Puff INHALATION Q4-6H PRN Shortness Of Breath Or Wheezing Famotidine 40 mg 06/06/23 09:00 06/06/23 20:54 Famotidine 20 Mg Tablet PO 40 mg Q12HR SUMA Administration Lactated Ringer's 1,000 mls @ 125 mls/hr 06/05/23 20:15 06/07/23 00:22 Lr - Lactated Ringers Iv IV CONT 125 mls/hr .Q8H SUMA Administration Vancomycin HCl 1,500 mg in 500 mls @ 250 mls/hr 06/06/23 10:00 06/06/23 20:57 Vancomycin 1,500 Mg/D5w 500 Ml IVPB 250 mls/hr Q12H SUMA Administration Insulin Aspart 10 units 06/06/23 08:00 06/06/23 17:04 Insulin Aspart (*Bkc) 100 Units/Ml SUB-Q 10 units TIDWM SUMA Administration Insulin Glargine 60 units 06/05/23 23:45 06/06/23 17:03 Insulin Glargine (*Bkc) 100 Units/Ml SUB-Q 60 units QPM SUMA Administration Loratadine 10 mg 06/06/23 09:00 06/06/23 09:40 Loratadine 10 Mg Tablet PO 10 mg QAM SUMA Administration Morphine Sulfate 4 mg 06/05/23 20:13 06/07/23 06:23 Morphine Sulfate (*Crx) 4 Mg/Ml Inj IV PUSH 4 mg Q2H PRN Administration Pain Rated 7-10 Ondansetron HCl 4 mg 06/05/23 20:13 Ondansetron Inj 4 Mg/2 Ml Vial IV PUSH Q4H PRN Nausea Pantoprazole Sodium 40 mg 06/06/23 09:00 06/06/23 09:40 Pantoprazole 40 Mg Tablet PO 40 mg QAM SUMA Administration Senna 8.6 mg 06/06/23 09:00 06/06/23 09:40 Sennosides 8.6 Mg Tablet PO 8.6 mg DAILY SUMA Administration Radiology Results: ITS Impressions Chest X-Ray 06/05/23 18:53 IMPRESSION: No acute cardiopulmonary process. Face CT 06/05/23 19:13 IMPRESSION: 8 mm soft tissue abscess at the base of the nose, just to the right of the maxillary spine. Mucoperiosteal sinus disease with findings that may represent acute sphenoid sinusitis in the appropriate clinical context. Labs Labs: La
--- NOTE | 2023-06-07 08:07 | W.PM.PROC2 ---
Procedure Note - Detailed Date of Procedure 06/07/23 Pre-op Diagnosis abscess,cellulitis,hyperglycemia Post-op Diagnosis Same Procedure Performed I&D Right upper lip / base nose Surgeon Sheldon Pickard MD Anesthesia Local Findings Purulence identified. Cultures taken. Description of Procedure After consent was obtained 1% lidocaine with epinephrine was used anesthetize locally. Once adequate time for effect he was prepped and draped in a standard sterile fashion. A 11 blade used to make a small incision over the area of greatest fluctuance at the base of the right nose. I was able to identify and express purulence. Cultures were taken. He tolerated well. Estimated Blood Loss 2 Drains No Packing No Pathology Yes (Culture) Complications No immediate complications Condition Stable Disposition Floor
[2023-06-07] MEDS: INSULIN ASPART (*BKC) 100 UNITS/ML 10 UNITS SUB-Q ×2 (08:31→17:09)
[2023-06-07] MEDS: FAMOTIDINE 20 MG TABLET 40 MG PO ×2 (08:32→20:10)
[2023-06-07] MEDS: PANTOPRAZOLE 40 MG TABLET PO (08:32)
[2023-06-07] MEDS: LORATADINE 10 MG TABLET PO (08:32)
[2023-06-07] MEDS: SENNOSIDES 8.6 MG TABLET PO (08:32)
[2023-06-07 09:53] LABS: Estimated CRCL calculation 124 ml/min; Estimated Glomerular Filt Rate > 60
[2023-06-07 09:54] LABS: Vancomycin Trough 8.1 ug/mL (10.0-20.0)
[2023-06-07 10:48] LABS: Glucose Point of Care 103 mg/dl (65-105)
[2023-06-07 11:42] LABS: Glucose Point of Care 127 mg/dl (65-105)
[2023-06-07 14:00] VITALS: BP 138/76; PULSE 96; RESP 16; TEMP 36.8; O2SAT 96
[2023-06-07] MEDS: polyethylene glycoL 3350 17 GM POWD.PACK PO (14:05)
--- NOTE | 2023-06-07 14:19 | PM.IMPN ---
Progress Note: A&P Assessment and Plan (1) Abscess: Code(s): L02.91 - Cutaneous abscess, unspecified Status: Acute Assessment and Plan: IV antibiotics Await plan from Plastic surgery (2) Cellulitis: Code(s): L03.90 - Cellulitis, unspecified Status: Acute (3) Chronic GERD: Code(s): K21.9 - Gastro-esophageal reflux disease without esophagitis Status: Acute (4) Gastroparesis: Code(s): K31.84 - Gastroparesis Status: Acute (5) Type 1 diabetes mellitus with hyperglycemia: Code(s): E10.65 - Type 1 diabetes mellitus with hyperglycemia Status: Acute Subjective Date/time seen: 06/07/23 14:19 Interval history: No complaints Exam Narrative: patient is sitting in a stretcher Const: General: comfortable, no acute distress, well developed, alert, awake and obese Nutritional Appearance: obese Orientation/consciousness: patient oriented x3 HENMT: Head: normal to inspection, normocephalic and atraumatic Ears: hearing grossly normal bilaterally Face/Nose/Sinus: normal facial exam, face symmetric, erythema (R nasolabial area) and edema Face and sinus: normal facial exam, face symmetric, erythema (R nasolabial area) and edema Eyes: General: appearance normal, both eyes and all related structures Pupils: Equal, round and reactive pupils present EOM: EOMs intact bilaterally Neck: Neck: full ROM, no lymphadenopathy and no JVD Thyroid: thyroid normal Lymphatic: no lymphadenopathy noted Resp: Effort & Inspection: normal respiratory effort and able to speak in complete sentences Auscultation: clear to auscultation bilaterally Cardio: Jugular venous distension: no JVD Rate: regular rate Rhythm: regular rhythm Heart sounds: S1 normal heart sound present and S2 normal heart sound present GI: Inspection: Pannus present and obesity : General: Yes deferred Skin: General skin exam: erythema (R nasolabial area) Rashes: no rashes Wounds: no wounds Neuro: General: patient oriented x3, CN's II-XI intact bilaterally and Unable to assess gait Cranial nerves: Yes CN's II-XII intact bilaterally and Yes Equal, round and reactive pupils present Cognition (Neuro): normal cognition Speech: normal speech Gait exam (Neuro): Normal gait present and Unable to assess gait Motor exam (neuro): 5/5 motor strength present throughout Extrem: General: normal to inspection, full ROM, no joint enlargement and no pedal edema Objective Data Vital Signs Vital Signs: Vital Signs - 24 hr 06/06/23 14:57 06/06/23 20:40 06/06/23 22:00 Temperature 98.1 F 97.6 F Pulse Rate 91 91 95 Respiratory Rate 16 16 16 Blood Pressure 147/80 H 154/76 H Pulse Oximetry 97 97 98 Oxygen Delivery Room Air 06/07/23 06:00 06/07/23 08:30 Temperature 97.1 F L Pulse Rate 92 Respiratory Rate 16 Blood Pressure 146/84 H Pulse Oximetry 94 Oxygen Delivery Room Air Intake/Output Intake/Output: Intake & Output 06/04/23 06/05/23 06/06/23 06/07/23 23:59 23:59 23:59 23:59 Intake Total 2103 3870 2142 Output Total 900 Balance 2103 2970 2142 Meds/Results Medications: Active Medications Generic Name Dose Route Start Last Admin Trade Name Freq PRN Reason Stop Dose Admin Albuterol 2 puff 06/05/23 23:46 Albuterol Sulfate (*Sp) Aerosol 1 Puff INHALATION Q4-6H PRN Shortness Of Breath Or Wheezing Famotidine 40 mg 06/06/23 09:00 06/07/23 08:32 Famotidine 20 Mg Tablet PO 40 mg Q12HR SUMA Administration Lactated Ringer's 1,000 mls @ 125 mls/hr 06/05/23 20:15 06/07/23 08:40 Lr - Lactated Ringers Iv IV CONT 125 mls/hr .Q8H SUMA Administration Vancomycin HCl 2,000 mg in 500 mls @ 250 mls/hr 06/07/23 10:00 06/07/23 10:40 Vancomycin 2,000 Mg/D5w 500 Ml IVPB 250 mls/hr Q12H SUMA Administration Insulin Aspart 10 units 06/06/23 08:00 06/07/23 11:30 Insulin Aspart (*Bkc) 100 Units/Ml SUB-Q Not Given TIDWM [facility] Insulin
[2023-06-07] MEDS: INSULIN GLARGINE (*BKC) 100 UNITS/ML 60 UNITS SUB-Q (17:09)
[2023-06-07 17:10] LABS: Glucose Point of Care 284 mg/dl (65-105)
[2023-06-07] MEDS: ACETAMINOPHEN 325 MG TABLET 650 MG PO (17:25)
[2023-06-07 20:00] VITALS: PULSE 96; RESP 18; O2SAT 95
[2023-06-07 21:20] VITALS: BP 132/80; PULSE 96; RESP 18; TEMP 36.4; O2SAT 95
[2023-06-07 21:30] LABS: Glucose Point of Care 286 mg/dl (65-105)
[2023-06-08] MEDS: MORPHINE SULFATE (*CRX) 4 MG/ML INJ IV PUSH ×5 (01:19→18:54)
[2023-06-08 06:00] VITALS: BP 128/72; PULSE 91; RESP 118; TEMP 36.4; O2SAT 93
[2023-06-08 07:11] LABS: Estimated CRCL calculation 124 ml/min; Estimated Glomerular Filt Rate > 60
[2023-06-08 08:06] LABS: Glucose Point of Care 90 mg/dl (65-105)
[2023-06-08] MEDS: INSULIN ASPART (*BKC) 100 UNITS/ML 10 UNITS SUB-Q ×3 (08:19→17:07)
[2023-06-08] MEDS: LORATADINE 10 MG TABLET PO (08:20)
[2023-06-08] MEDS: FAMOTIDINE 20 MG TABLET 40 MG PO ×2 (08:20→21:03)
[2023-06-08] MEDS: SENNOSIDES 8.6 MG TABLET PO (08:20)
[2023-06-08] MEDS: PANTOPRAZOLE 40 MG TABLET PO (08:20)
[2023-06-08] MEDS: LACTATED RINGERS 1,000 ML 125 ML IV CONT ×2 (08:21→21:08)
[2023-06-08] MEDS: ACETAMINOPHEN 325 MG TABLET 650 MG PO ×3 (08:23→21:05)
--- NOTE | 2023-06-08 10:56 | PM.IMPN ---
Progress Note: A&P Assessment and Plan (1) Abscess: Code(s): L02.91 - Cutaneous abscess, unspecified Status: Acute Assessment and Plan: admit to regular medical floor patient started on vancomycin cultures in progress plastic surgery consult (2) Cellulitis: Code(s): L03.90 - Cellulitis, unspecified Status: Acute Assessment and Plan: on broad-spectrum antibiotics supportive care (3) Chronic GERD: Code(s): K21.9 - Gastro-esophageal reflux disease without esophagitis Status: Acute Assessment and Plan: PPI (4) Gastroparesis: Code(s): K31.84 - Gastroparesis Status: Acute Assessment and Plan: supportive care (5) Type 1 diabetes mellitus with hyperglycemia: Code(s): E10.65 - Type 1 diabetes mellitus with hyperglycemia Status: Acute Assessment and Plan: continue home meds patient on Lantus and rapid acting insulin Accu-Cheks AC and HS 1800 calorie restricted diet carb consistent Subjective Date/time seen: 06/08/23 10:56 Interval history: No complaints Exam Narrative: patient is sitting in a stretcher Const: General: comfortable, no acute distress, well developed, alert, awake and obese Nutritional Appearance: obese Orientation/consciousness: patient oriented x3 HENMT: Head: normal to inspection, normocephalic and atraumatic Ears: hearing grossly normal bilaterally Face/Nose/Sinus: normal facial exam, face symmetric, erythema (R nasolabial area) and edema Face and sinus: normal facial exam, face symmetric, erythema (R nasolabial area) and edema Eyes: General: appearance normal, both eyes and all related structures Pupils: Equal, round and reactive pupils present EOM: EOMs intact bilaterally Neck: Neck: full ROM, no lymphadenopathy and no JVD Thyroid: thyroid normal Lymphatic: no lymphadenopathy noted Resp: Effort & Inspection: normal respiratory effort and able to speak in complete sentences Auscultation: clear to auscultation bilaterally Cardio: Jugular venous distension: no JVD Rate: regular rate Rhythm: regular rhythm Heart sounds: S1 normal heart sound present and S2 normal heart sound present GI: Inspection: Pannus present and obesity : General: Yes deferred Skin: General skin exam: erythema (R nasolabial area) Rashes: no rashes Wounds: no wounds Neuro: General: patient oriented x3, CN's II-XI intact bilaterally and Unable to assess gait Cranial nerves: Yes CN's II-XII intact bilaterally and Yes Equal, round and reactive pupils present Cognition (Neuro): normal cognition Speech: normal speech Gait exam (Neuro): Normal gait present and Unable to assess gait Motor exam (neuro): 5/5 motor strength present throughout Extrem: General: normal to inspection, full ROM, no joint enlargement and no pedal edema Objective Data Vital Signs Vital Signs: Vital Signs - 24 hr 06/07/23 14:00 06/07/23 21:20 06/07/23 20:00 Temperature 98.2 F 97.5 F L Pulse Rate 96 96 96 Respiratory Rate 16 18 18 Blood Pressure 138/76 132/80 Pulse Oximetry 96 95 95 Oxygen Delivery Room Air 06/08/23 06:00 Temperature 97.5 F L Pulse Rate 91 Respiratory Rate 118 H Blood Pressure 128/72 Pulse Oximetry 93 Oxygen Delivery Intake/Output Intake/Output: Intake & Output 06/05/23 06/06/23 06/07/23 06/08/23 23:59 23:59 23:59 23:59 Intake Total 2103 3870 2882 2240 Output Total 900 Balance 2103 2970 2882 2240 Meds/Results Medications: Active Medications Generic Name Dose Route Start Last Admin Trade Name Freq PRN Reason Stop Dose Admin Acetaminophen 650 mg 06/07/23 17:19 06/08/23 08:23 Acetaminophen 325 Mg Tablet PO 650 mg Q6H PRN Administration Mild Pain (1-3) or Fever Albuterol 2 puff 06/05/23 23:46 Albuterol Sulfate (*Sp) Aerosol 1 Puff INHALATION Q4-6H PRN Shortness Of Breath Or Wheezing Famotidine 40 mg 06/06/23 09:00 06/08/23 08:20
[2023-06-08 11:43] LABS: Glucose Point of Care 166 mg/dl (65-105)
[2023-06-08] MEDS: polyethylene glycoL 3350 17 GM POWD.PACK PO (12:25)
[2023-06-08 14:00] VITALS: BP 137/68; PULSE 70; RESP 20; TEMP 36.8; O2SAT 9
[2023-06-08] MEDS: INSULIN GLARGINE (*BKC) 100 UNITS/ML 60 UNITS SUB-Q (17:07)
[2023-06-08 17:10] LABS: Glucose Point of Care 165 mg/dl (65-105)
[2023-06-08 21:41] LABS: Glucose Point of Care 83 mg/dl (65-105)
[2023-06-08 21:42] LABS: Vancomycin Trough 15.4 ug/mL (10.0-20.0)
[2023-06-08 22:00] VITALS: BP 141/75; PULSE 87; RESP 18; TEMP 36.2; O2SAT 95
[2023-06-09] MEDS: MORPHINE SULFATE (*CRX) 4 MG/ML INJ IV PUSH ×5 (03:28→21:16)
[2023-06-09 06:00] VITALS: BP 128/80; PULSE 80; RESP 16; TEMP 36.3; O2SAT 95
[2023-06-09 06:56] LABS: Estimated CRCL calculation 138 ml/min; Estimated Glomerular Filt Rate > 60
[2023-06-09 08:04] LABS: Glucose Point of Care 238 mg/dl (65-105)
[2023-06-09] MEDS: INSULIN ASPART (*BKC) 100 UNITS/ML 10 UNITS SUB-Q ×3 (08:05→17:42)
[2023-06-09] MEDS: ACETAMINOPHEN 325 MG TABLET 650 MG PO ×2 (08:08→17:37)
[2023-06-09] MEDS: FAMOTIDINE 20 MG TABLET 40 MG PO ×2 (08:09→21:16)
[2023-06-09] MEDS: SENNOSIDES 8.6 MG TABLET PO (08:09)
[2023-06-09] MEDS: PANTOPRAZOLE 40 MG TABLET PO (08:09)
[2023-06-09] MEDS: LORATADINE 10 MG TABLET PO (08:10)
[2023-06-09] MEDS: LACTATED RINGERS 1,000 ML 125 ML IV CONT ×2 (08:10→18:07)
[2023-06-09 09:49] LABS: Basophils Percent Auto 0.6 % (0.2-1.2); Eosinophils Absolute Auto 0.9 K/mm3 (0-0.3); Eosinophils Percent Auto 13.1 % (0-4.4); Hematocrit 38.5 % (42.0-52.0); Hemoglobin 12.6 g/dL (14.0-18.0); Immature Granulocyte Absolute 0.04 K/mm3 (0.00-0.031); Immature Granulocyte Percent A 0.6 % (0-0.5); Lymphocytes Absolute Auto 1.53 K/mm3 (0.9-3.2); Lymphocytes Percent Auto 23.3 % (18.3-44.2); Mean Corpuscular HGB Conc 32.7 g/dl (32-36); Mean Corpuscular Volume 88.7 fl (80-100); Mean Platelet Volume 9.8 fl (7.4-10.4); Monocytes Absolute Auto 0.6 K/mm3 (0.1-0.6); Monocytes Percent Auto 9.3 % (2.6-8.5); Neutrophils Absolute Auto 3.5 K/mm3 (1.3-6.7); Neutrophils Percent Auto 53.1 % (45.5-73.1); Platelet Count Result 277 k/mm3 (150-375); Red Blood Count 4.34 M/mm3 (4.6-6.20); Red Cell Distribution Width 12.1 % (11.5-14.5); White Blood Count 6.6 K/mm3 (4.5-10.0)
[2023-06-09 10:15] LABS: Anion Gap 5 mmol/L (8-16); Blood Urea Nitrogen 8 mg/dL (9-20); Calcium 8.4 mg/dL (8.4-10.2); Carbon Dioxide 33 mmol/L (22-30); Chloride 97 mmol/L (98-107); Estimated CRCL calculation 138 ml/min; Estimated Glomerular Filt Rate > 60; Glucose 248 mg/dL (65-110); Potassium 4.1 mmol/L (3.4-5.0); Sodium 135 mmol/L (137-145)
--- NOTE | 2023-06-09 12:01 | PM.IMPN ---
Progress Note: A&P Assessment and Plan (1) Abscess: Code(s): L02.91 - Cutaneous abscess, unspecified Status: Acute Assessment and Plan: ? improvement will rescan his soft tissue cx noted, add rocephin (2) Cellulitis: Code(s): L03.90 - Cellulitis, unspecified Status: Acute Assessment and Plan: on broad-spectrum antibiotics supportive care (3) Chronic GERD: Code(s): K21.9 - Gastro-esophageal reflux disease without esophagitis Status: Acute Assessment and Plan: PPI (4) Gastroparesis: Code(s): K31.84 - Gastroparesis Status: Acute Assessment and Plan: supportive care (5) Type 1 diabetes mellitus with hyperglycemia: Code(s): E10.65 - Type 1 diabetes mellitus with hyperglycemia Status: Acute Assessment and Plan: continue home meds patient on Lantus and rapid acting insulin Accu-Cheks AC and HS 1800 calorie restricted diet carb consistent Subjective Date/time seen: 06/09/23 12:01 Interval history: no improvement in pain or abscess tolerating abx wo se Exam Narrative: patient is sitting in a stretcher Const: General: comfortable, no acute distress, well developed, alert, awake and obese Nutritional Appearance: obese Orientation/consciousness: patient oriented x3 HENMT: Head: normal to inspection, normocephalic and atraumatic Ears: hearing grossly normal bilaterally Face/Nose/Sinus: normal facial exam, face symmetric, erythema (R nasolabial area) and edema Face and sinus: normal facial exam, face symmetric, erythema (R nasolabial area) and edema Eyes: General: appearance normal, both eyes and all related structures Pupils: Equal, round and reactive pupils present EOM: EOMs intact bilaterally Neck: Neck: full ROM, no lymphadenopathy and no JVD Thyroid: thyroid normal Lymphatic: no lymphadenopathy noted Resp: Effort & Inspection: normal respiratory effort and able to speak in complete sentences Auscultation: clear to auscultation bilaterally Cardio: Jugular venous distension: no JVD Rate: regular rate Rhythm: regular rhythm Heart sounds: S1 normal heart sound present and S2 normal heart sound present GI: Inspection: Pannus present and obesity : General: Yes deferred Skin: General skin exam: erythema (R nasolabial area) Rashes: no rashes Wounds: no wounds Neuro: General: patient oriented x3, CN's II-XI intact bilaterally and Unable to assess gait Cranial nerves: Yes CN's II-XII intact bilaterally and Yes Equal, round and reactive pupils present Cognition (Neuro): normal cognition Speech: normal speech Gait exam (Neuro): Normal gait present and Unable to assess gait Motor exam (neuro): 5/5 motor strength present throughout Extrem: General: normal to inspection, full ROM, no joint enlargement and no pedal edema Objective Data Vital Signs Vital Signs: Vital Signs - 24 hr 06/08/23 14:00 06/08/23 22:00 06/09/23 06:00 Temperature 98.3 F 97.2 F L 97.3 F L Pulse Rate 70 87 80 Respiratory Rate 20 18 16 Blood Pressure 137/68 141/75 H 128/80 Pulse Oximetry 9 L 95 95 Intake/Output Intake/Output: Intake & Output 06/06/23 06/07/23 06/08/23 06/09/23 23:59 23:59 23:59 23:59 Intake Total 3870 2882 5600 2050 Output Total 900 550 Balance 2970 2882 5050 0 Meds/Results Medications: Active Medications Generic Name Dose Route Start Last Admin Trade Name Freq PRN Reason Stop Dose Admin Acetaminophen 650 mg 06/07/23 17:19 06/09/23 08:08 Acetaminophen 325 Mg Tablet PO 650 mg Q6H PRN Administration Mild Pain (1-3) or Fever Albuterol 2 puff 06/05/23 23:46 Albuterol Sulfate (*Sp) Aerosol 1 Puff INHALATION Q4-6H PRN Shortness Of Breath Or Wheezing Famotidine 40 mg 06/06/23 09:00 06/09/23 08:09 Famotidine 20 Mg Tablet PO 40 mg Q12HR SUMA Administration Lactated Ringer's 1,000 mls @ 125 mls/hr 06/05/23 20:15 06/09/23 08:10 Lr - L
[2023-06-09 12:03] LABS: Glucose Point of Care 235 mg/dl (65-105)
[2023-06-09 14:35] VITALS: BP 122/69; PULSE 79; RESP 16; TEMP 36.3; O2SAT 95
[2023-06-09] MEDS: cefTRIAXone 2 GM/NS 100 ML 2 GM/100 ML BAG IVPB (14:45)
[2023-06-09 17:08] LABS: Glucose Point of Care 192 mg/dl (65-105)
[2023-06-09] MEDS: INSULIN GLARGINE (*BKC) 100 UNITS/ML 60 UNITS SUB-Q (17:43)
[2023-06-09 21:34] VITALS: BP 118/67; PULSE 86; RESP 18; TEMP 36.9; O2SAT 99
[2023-06-09 22:02] LABS: Glucose Point of Care 80 mg/dl (65-105)
[2023-06-10 06:00] VITALS: BP 112/55; PULSE 76; RESP 14; TEMP 36.3; O2SAT 96
--- NOTE | 2023-06-10 06:30 | WPDPN ---
Progress Note: A&P Assessment and Plan (1) Abscess: Code(s): L02.91 - Cutaneous abscess, unspecified Status: Acute Assessment and Plan: Clinically improved (still firm / tender) with improved WBC / afebrile. Cultures noted. CT scan noted. Discussed options with patient including formalized I&D in the OR today. After hearing options he feels like the infection is resolved and his symptoms are improved. He would like to monitor for another 24 hours for further improvement. Will review CT with radiology. NPO after midnight in preparation of no improvement (or worsening) to proceed with formalized I&D. Will follow closely. Today we had a lengthy discussion about his options. Reviewed risks, benefits, alternatives of each. Lengthy open ended conversation. Answered all of his questions to his satisfaction. He voiced a clear understanding. He would like to proceed as above. (2) Cellulitis: Code(s): L03.90 - Cellulitis, unspecified Status: Acute Time Spent With Patient Time with patient: 15 - 25 minutes Subjective Date/time seen: 06/10/23 06:30 Interval history: Events noted. Patient states that since the I&D he actually feels improved. No fevers / chills. No nausea/vomitting. He feels the area is still firm but much better. WBC yesterday 6.6. Culture noted: Organism 1 Staphylococcus aureus Organism 2 Gram negative bacilli isolated CT scan results: IMPRESSION: 1. Stable 10 x 5 x 5 mm rim-enhancing mass in the inferior aspect of the nose on the right, consistent with an abscess. 2. Mild bilateral cervical lymphadenopathy, likely reactive. Review of Systems Review of Systems: All systems reviewed & are unremarkable except as noted in HPI and below Exam Narrative: Right nasal base / ala/ upper lip much improved. Still some firmness / mild erythema noted. No fluctuance. Objective Data Vital Signs Vital Signs: Vital Signs - 24 hr 06/09/23 08:10 06/09/23 14:35 06/09/23 21:34 Temperature 36.3 C L 36.9 C Pulse Rate 79 86 Respiratory Rate 16 18 Blood Pressure 122/69 118/67 Pulse Oximetry 95 99 Oxygen Delivery Room Air Intake/Output Intake/Output: Intake & Output 06/07/23 06/08/23 06/09/23 06/10/23 23:59 23:59 23:59 23:59 Intake Total 2882 5600 4920 Output Total 550 Balance 2882 5050 4920 Meds/Results Medications: Active Medications Generic Name Dose Route Start Last Admin Trade Name Freq PRN Reason Stop Dose Admin Acetaminophen 650 mg 06/07/23 17:19 06/09/23 17:37 Acetaminophen 325 Mg Tablet PO 650 mg Q6H PRN Administration Mild Pain (1-3) or Fever Albuterol 2 puff 06/05/23 23:46 Albuterol Sulfate (*Sp) Aerosol 1 Puff INHALATION Q4-6H PRN Shortness Of Breath Or Wheezing Famotidine 40 mg 06/06/23 09:00 06/09/23 21:16 Famotidine 20 Mg Tablet PO 40 mg Q12HR SUMA Administration Lactated Ringer's 1,000 mls @ 125 mls/hr 06/05/23 20:15 06/09/23 18:07 Lr - Lactated Ringers Iv IV CONT 125 mls/hr .Q8H SUMA Administration Vancomycin HCl 1,750 mg in 500 mls @ 250 mls/hr 06/08/23 23:00 06/09/23 23:25 Vancomycin 1,750 Mg/D5w 500 Ml IVPB 250 mls/hr Q12H SUMA Administration Ceftriaxone Sodium 2 gm in 100 mls @ 200 mls/hr 06/09/23 14:00 06/09/23 15:15 Rocephin 2 Gm/Ns 100 Ml IVPB Infused Q24H SUMA Infusion Insulin Aspart 10 units 06/06/23 08:00 06/09/23 17:42 Insulin Aspart (*Bkc) 100 Units/Ml SUB-Q 10 units TIDWM SUMA Administration Insulin Glargine 60 units 06/05/23 23:45 06/09/23 17:43 Insulin Glargine (*Bkc) 100 Units/Ml SUB-Q 60 units QPM SUMA Administration Loratadine 10 mg 06/06/23 09:00 06/09/23 08:10 Loratadine 10 Mg Tablet PO 10 mg QAM SUMA Administration Morphine Sulfate 4 mg 06/05/23 20:13 06/09/23 21:16 Morphine Sulfate (*Crx) 4 Mg/Ml Inj IV PUSH 4 mg Q2H PRN Administration Pain Rated 7-10 Ondansetron HCl
[2023-06-10 08:19] LABS: Glucose Point of Care 279 mg/dl (65-105)
[2023-06-10] MEDS: INSULIN ASPART (*BKC) 100 UNITS/ML 10 UNITS SUB-Q ×3 (08:29→17:17)
[2023-06-10] MEDS: LORATADINE 10 MG TABLET PO (08:31)
[2023-06-10] MEDS: PANTOPRAZOLE 40 MG TABLET PO (08:31)
[2023-06-10] MEDS: SENNOSIDES 8.6 MG TABLET PO (08:31)
[2023-06-10] MEDS: FAMOTIDINE 20 MG TABLET 40 MG PO ×2 (08:32→20:02)
[2023-06-10 11:05] LABS: Vancomycin Trough 12.7 ug/mL (10.0-20.0)
--- NOTE | 2023-06-10 11:21 | PM.IMPN ---
Progress Note: A&P Assessment and Plan (1) Abscess: Code(s): L02.91 - Cutaneous abscess, unspecified Status: Acute Assessment and Plan: ? improvement CT scan noted. cx noted, add flavia Appreciate Plastic surgery consult. Will give 1 more day to see if need to proceed with I&D (2) Cellulitis: Code(s): L03.90 - Cellulitis, unspecified Status: Acute Assessment and Plan: on broad-spectrum antibiotics supportive care (3) Chronic GERD: Code(s): K21.9 - Gastro-esophageal reflux disease without esophagitis Status: Acute Assessment and Plan: PPI (4) Gastroparesis: Code(s): K31.84 - Gastroparesis Status: Acute Assessment and Plan: supportive care (5) Type 1 diabetes mellitus with hyperglycemia: Code(s): E10.65 - Type 1 diabetes mellitus with hyperglycemia Status: Acute Assessment and Plan: continue home meds patient on Lantus and rapid acting insulin Accu-Cheks AC and HS 1800 calorie restricted diet carb consistent Subjective Date/time seen: 06/10/23 11:21 Interval history: CT scan noted. Patient feels a little better today Exam Narrative: patient is sitting in a stretcher Const: General: comfortable, no acute distress, well developed, alert, awake and obese Nutritional Appearance: obese Orientation/consciousness: patient oriented x3 HENMT: Head: normal to inspection, normocephalic and atraumatic Ears: hearing grossly normal bilaterally Face/Nose/Sinus: normal facial exam, face symmetric, erythema (R nasolabial area) and edema Face and sinus: normal facial exam, face symmetric, erythema (R nasolabial area) and edema Eyes: General: appearance normal, both eyes and all related structures Pupils: Equal, round and reactive pupils present EOM: EOMs intact bilaterally Neck: Neck: full ROM, no lymphadenopathy and no JVD Thyroid: thyroid normal Lymphatic: no lymphadenopathy noted Resp: Effort & Inspection: normal respiratory effort and able to speak in complete sentences Auscultation: clear to auscultation bilaterally Cardio: Jugular venous distension: no JVD Rate: regular rate Rhythm: regular rhythm Heart sounds: S1 normal heart sound present and S2 normal heart sound present GI: Inspection: Pannus present and obesity : General: Yes deferred Skin: General skin exam: erythema (R nasolabial area) Rashes: no rashes Wounds: no wounds Neuro: General: patient oriented x3, CN's II-XI intact bilaterally and Unable to assess gait Cranial nerves: Yes CN's II-XII intact bilaterally and Yes Equal, round and reactive pupils present Cognition (Neuro): normal cognition Speech: normal speech Gait exam (Neuro): Normal gait present and Unable to assess gait Motor exam (neuro): 5/5 motor strength present throughout Extrem: General: normal to inspection, full ROM, no joint enlargement and no pedal edema Objective Data Vital Signs Vital Signs: Vital Signs - 24 hr 06/09/23 14:35 06/09/23 21:34 06/10/23 06:00 Temperature 97.4 F L 98.5 F 97.3 F L Pulse Rate 79 86 76 Respiratory Rate 16 18 14 Blood Pressure 122/69 118/67 112/55 L Pulse Oximetry 95 99 96 Intake/Output Intake/Output: Intake & Output 06/07/23 06/08/23 06/09/23 06/10/23 23:59 23:59 23:59 23:59 Intake Total 2882 5600 4920 790 Output Total 550 Balance 2882 5050 4920 790 Meds/Results Medications: Active Medications Generic Name Dose Route Start Last Admin Trade Name Freq PRN Reason Stop Dose Admin Acetaminophen 650 mg 06/07/23 17:19 06/09/23 17:37 Acetaminophen 325 Mg Tablet PO 650 mg Q6H PRN Administration Mild Pain (1-3) or Fever Albuterol 2 puff 06/05/23 23:46 Albuterol Sulfate (*Sp) Aerosol 1 Puff INHALATION Q4-6H PRN Shortness Of Breath Or Wheezing Famotidine 40 mg 06/06/23 09:00 06/10/23 08:32 Famotidine 20 Mg Tablet PO 40 mg Q12HR SUMA Administration Vancomycin HC
[2023-06-10 11:53] LABS: Glucose Point of Care 266 mg/dl (65-105)
[2023-06-10] MEDS: HYDROcodone/acetaminophen (*CRX) 10-325 MG TABLET 1 TAB PO ×2 (13:11→19:59)
[2023-06-10 14:25] VITALS: BP 111/73; PULSE 87; RESP 16; TEMP 36.7; O2SAT 100
[2023-06-10] MEDS: cefTRIAXone 2 GM/NS 100 ML 2 GM/100 ML BAG IVPB (14:46)
[2023-06-10 17:02] LABS: Glucose Point of Care 203 mg/dl (65-105)
[2023-06-10] MEDS: INSULIN GLARGINE (*BKC) 100 UNITS/ML 60 UNITS SUB-Q (17:16)
[2023-06-10 20:00] VITALS: PULSE 87; RESP 16; O2SAT 100
[2023-06-10 22:00] VITALS: BP 137/67; PULSE 94; RESP 14; TEMP 36.4; O2SAT 98
[2023-06-11] MEDS: HYDROcodone/acetaminophen (*CRX) 10-325 MG TABLET 1 TAB PO ×2 (02:25→08:29)
[2023-06-11 06:00] VITALS: BP 111/70; PULSE 79; RESP 14; TEMP 36.6; O2SAT 94
[2023-06-11 07:59] LABS: Glucose Point of Care 199 mg/dl (65-105)
[2023-06-11] MEDS: PANTOPRAZOLE 40 MG TABLET PO (08:28)
[2023-06-11] MEDS: INSULIN ASPART (*BKC) 100 UNITS/ML 10 UNITS SUB-Q (08:29)
[2023-06-11] MEDS: SENNOSIDES 8.6 MG TABLET PO (08:29)
[2023-06-11] MEDS: LORATADINE 10 MG TABLET PO (08:29)
[2023-06-11] MEDS: FAMOTIDINE 20 MG TABLET 40 MG PO (08:36)
--- NOTE | 2023-06-11 09:15 | PM.DS ---
DS: Admitting Diagnosis Discharge Date 06/11/23 Admitting Diagnosis Nose abscess DS: Discharge Diagnosis Discharge Diagnosis (1) Abscess: Code(s): L02.91 - Cutaneous abscess, unspecified Status: Acute (2) Cellulitis: Code(s): L03.90 - Cellulitis, unspecified Status: Acute (3) Chronic GERD: Code(s): K21.9 - Gastro-esophageal reflux disease without esophagitis Status: Acute (4) Gastroparesis: Code(s): K31.84 - Gastroparesis Status: Acute (5) Type 1 diabetes mellitus with hyperglycemia: Code(s): E10.65 - Type 1 diabetes mellitus with hyperglycemia Status: Acute DS: Summary Hospital Course Reason for hospitalization: 42yo male with DM type I here for complaints of nose abscess. Please see H&P for details. Hospital Course: Patient was seen in the emergency room. White count 17 K. chest x-ray was clear. Facial CT showed an 8 mm soft tissue abscess at the base of the nose as well as mucoperiosteal sinus disease which may represent acute sphenoid sinusitis. Patient was given cefepime and clindamycin x1 dose each and started IV vancomycin. His white count normalized. He was seen by Plastic surgery. Patient underwent I and D of her right upper lip and cultures were obtained 06/07. Blood cultures collected on admission were negative. He remained afebrile throughout his hospital course. He had clinical improvement but the area still felt firm and tender. Repeat facial CT showed a stable 10 mm rim enhancing mass at the inferior aspect of the right nose consistent with abscess. Options were discussed with the patient. Patient did not want to proceed with further surgical intervention. Clinically, the area is improving. Patient states it is less painful. Discussed with plastic surgery who recommended home today with oral antibiotics and follow up in the clinic in 5 days. Abscess culture is growing heavy growth of Staph aureus and scant growth of Klebsiella oxytoca and Rocephin was added. Discussed with Pharm D ID specialist about antibiotic choice. Bactrim DS recommended for 1 more week to complete a 14 day course. This should cover Klebsiella according to our current biogram. Patient feels well. He is eager for discharge. He overall did well and was able to be discharged home on 06/11/2023. Side effects of the Bactrim were discussed. Status at Discharge Cognitive/behavioral status at discharge: stable Time Spent with Patient Time attestation: Total time spent providing and/or coordinating discharge services: 35 minutes Time spent: Greater than 30 minutes Exam Narrative: AF 97.9 111/70 79 14 94% ra Gen - NARD Chest - CTA bilaterally, nml RR CV - RRR S1/S2 Abd - Soft, NT/ND, Positive BS Ext - No pedal edema Psych - Nml mood and affect Skin - Warm and dry. small nodular mass with dried eschar cap just inside the right nares without erythema DS: Data Data Completed and Pending Labs on day of discharge: Labs from last 24 hours 06/11/23 06/10/23 06/10/23 07:57 16:56 11:45 POC Capillary Glucose 199 H 203 H 266 H Vancomycin Trough 06/10/23 09:58 POC Capillary Glucose Vancomycin Trough 12.7 Preliminary micro results at discharge 06/07/23 08:38 Aerobic Culture - Preliminary Abscess Staphylococcus aureus Klebsiella oxytoca Discharge Plan Discharge Attending physician on discharge: Shukri Kang Consulting providers: Sheldon Pickard; Neil Joyce Discharging Clinician: Shukri Kang Anticipated Discharge Date/Time: 06/11/23 09:32 Patient Disposition: Home, Self-Care Activity: as tolerated Diet: diabetic Discharge Instructions: Please check glucose before meals and before bed. Record and bring into your doctor for review. Please complete your antibiotic course even if you are starting to feel well. Contact your doctor or call 911 and come to the [facility]
--- NOTE | 2023-06-26 07:36 | PC.NURSE ---
Faxed Abscess results to Dr. Lugo and Dr. Pickard. Dr. Kang aware of findings and faxing of report.
== END 2023-06-11 09:50 | disposition home or self-care (01) | DRG 115 ==
LOC: ANHED 20:23 → ANH3MEDSUR 20:59
PROVIDERS: Chiropractor; Admitting Provider Internal Medicine; Emergency Provider Physician Assistant; PCP Internal Medicine; Visit Provider Internal Medicine
DX: J34.0 Abscess, furuncle and carbuncle of nose (principal); E10.43 Type 1 diabetes mellitus with diabetic autonomic (poly)neuropathy; K31.84 Gastroparesis; B95.61 Methicillin susceptible Staphylococcus aureus infection as the cause of diseases classified elsewhere; B96.1 Klebsiella pneumoniae [K. pneumoniae] as the cause of diseases classified elsewhere; E66.9 Obesity, unspecified; E10.65 Type 1 diabetes mellitus with hyperglycemia; J32.3 Chronic sphenoidal sinusitis; K21.9 Gastro-esophageal reflux disease without esophagitis; Z79.4 Long term (current) use of insulin; Z90.49 Acquired absence of other specified parts of digestive tract
CPT/HCPCS: 36415; 70487; 71046; 80048; 80053; 80202; 82010; 82565; 82948; 83605; 85025; 87040; 87070; 87077; 87147; 87181; 87186; 87205; 96361; 96365; 96366; 96367; 96375; 99285; A9270; G0378; G0379; J0692; J0696; J1815; J2270; J3370; J7030; J7120; Q9967

== ENCOUNTER 2023-08-15 13:03 | Emergency (ER) | payer OTHER, SELFPAY ==
[2023-08-15 13:07] VITALS: BP 130/80; PULSE 93; RESP 20; TEMP 36.7; O2SAT 99
--- NOTE | 2023-08-15 14:19 | PC.NURSE ---
pt to desk, states he will leave due to wait. pt advised to return if symptoms get worse. pt verbalized understanding
== END 2023-08-15 14:19 | disposition left against medical advice (07) ==
LOC: ANHED 14:31
PROVIDERS: PCP Internal Medicine
DX: Z53.21 Procedure and treatment not carried out due to patient leaving prior to being seen by health care provider (principal)
CPT/HCPCS: 99199

== ENCOUNTER 2023-09-10 07:29 | Outpatient (CLI) | payer OTHER, SELFPAY ==
--- NOTE | ~2023-09-10 | NM_ITS ---
EXAM: NM gastric emptying study DATE: 09/10/2023 12:13 INDICATION: Nausea and vomiting. Early satiety. TECHNIQUE: A gastric emptying study was performed using the methodology of Zeina HINOJOSA, et al. J Nucl Med 2007; 48:568-572. The patient was given a meal consisting of 2 scrambled eggs labeled with 1.010 mCi Tc-99m sulfur colloid, 2 slices of toast, two packages of jam, and approximately 120 mL of water . Simultaneous anterior and posterior 1-min images of the abdomen were obtained with the patient supi ne at multiple time points over a total period of 4 hours. The geometric mean of anterior and posteri or views was determined, and the percentage retention was calculated for each time point. COMPARISON: CT abdomen and pelvis 05/22/2023 FINDINGS: Gastric retention of the radiotracer-labeled meal was 44%, 24%, and 9% at the 1-hour, 2-ho ur, and 4-hour time points, respectively. With this technique, apparent rapid gastric emptying is sug gested by <30% gastric retention at 1 hour. Delayed gastric emptying is defined by gastric retention of >90% at 1 hour, >60% retention at 2 hours, or >10% retention at 4 hours. IMPRESSION: 1. Normal gastric emptying. Reviewed, dictated and finalized at location A. ING SERVICE DIRECTOR IMPRESSION: 1. Normal gastric emptying.
== END 2023-09-10 07:30 | disposition home or self-care (01) ==
PROVIDERS: PCP Internal Medicine; Visit Provider Nurse Practitioner
DX: R11.2 Nausea with vomiting, unspecified (principal); R68.81 Early satiety; R14.0 Abdominal distension (gaseous); K21.9 Gastro-esophageal reflux disease without esophagitis
CPT/HCPCS: 78264; A9541

== ENCOUNTER 2024-11-22 20:51 | Emergency (ER) | payer OTHER, SELFPAY ==
--- NOTE | ~2024-11-22 | CT_ITS ---
Noncontrast CT scan of the right knee CLINICAL HISTORY: Pain, status post fall TECHNIQUE: Axial noncontrast imaging of the right knee was performed. Sagittal and coronal reformatte d images were constructed. Dose reduction technique was used on this scan by utilizing automated expo sure control and iterative reconstruction technique. The dose-length product (DLP) was 746.75 mGy-cm. Findings: No fracture or dislocation seen. Osseous alignment is anatomic. Joint spaces are preserved. No joint effusion. There is prepatellar subcutaneous soft tissue edema. No other gross soft tissue a bnormality seen on noncontrast CT imaging. Visualized musculature unremarkable. IMPRESSION: No fracture or dislocation. Prepatellar soft tissue edema/swelling, which could be posttraumatic in nature. Reviewed, dictated and finalized at [facility]. ON PUNCHER
--- OUTSIDE RECORDS SUMMARY | 2024-11-22 20:53 | XMS_ITS | CONTINUITY OF CARE DOCUMENT ---
Author Name binaangelicamiryam perez Address Unknown Organization [facility] Address [address] [place] [address] Phone [phone] Care Team Providers Care Button Sewing Machine Operator Name Role Phone Rodo SHARP, [place] Unavailable [phone] CALVIN SUBRAMANIAN MD Unavailable RIMA SHARP, YELENA Unavailable INSURANCE PROVIDERS Payer name Policy type / Coverage type [place] red green party ID [facility] Medicaid [id number]
--- OUTSIDE RECORDS SUMMARY | 2024-11-22 20:53 | XMS_ITS | Referral Summary ---
Author Organization [facility] Address [address] [place] [address] Care Team Providers Care Insurance Administrative Assistant Name Role Phone Purvi Tavares MD Primary Care Provider Source Comments [facility],non-owned Affiliates and Associated Physician Practices is amultiple site organization consisting of ambulatory clinics and hospital sitesin [place], [place], [place] and [place]. This disclosure is being madepursuant to the Care Everywhere program and may not contain all information available regarding this patient. Last updated 18.[facility] Allergies Active Allergy Reactions Criticality Noted Date Comments Piperacillin Sod-Tazobactam So Other 07/22 Medications * Be aware that medications may not be up to date on this document. Alwaysverify current medications with the patient. Medication Sig Dispensed Refills Start Date End Date Status ofloxacin (OCUFLOX) 0.3 % ophthalmic solution Instill 1 drop into right eye 4 times daily 5 mL 07/15/2019 Active Active Problems No known active problems Social History Tobacco Use Types Packs/Day Years Used Date Smoking Tobacco: Never Smokeless Tobacco: Current Chew Sex and Gender Information Value Date Recorded Sex Assigned at Not on file Gender Identity Not on file Sexual Orientation Not on file Plan of Treatment Not on file Care Teams Insurance Administrative Assistant Relationship Specialty Start Date End Date Purvi Tavares MD [address] [place], [place] [phone] PCP - General 06/12/17
--- OUTSIDE RECORDS SUMMARY | 2024-11-22 20:53 | XMS_ITS | Clinical Summary ---
Author Organization [facility] [employer] Address [address] [place] [address] Care Team Providers Care Cross Country And Track And Field Coach Name Role Phone Purvi Tavares MD Primary Care Provider Source Comments [facility] [employer],non-owned Affiliates and Associated Physician Practices is amultiple site organization consisting of ambulatory clinics and hospital sitesin [place], [place], [place] and [place]. This disclosure is being madepursuant to the Care Everywhere program and may not contain all information available regarding this patient. Last updated 18.[facility] [employer] Allergies Active Allergy Reactions Criticality Noted Date [...] Orientation Not on file Plan of Treatment Health Maintenance Due Date Last Done Comments LIPID TESTING 1980 HIV SCREENING 1995 HEPATITIS C SCREENING 11/24/1998 DTAP/TDAP/TD VACCINES (1 - Tdap) 1999 HEPATITIS B VACCINE (1 of 3 - 19+ 3-dose series) 1999 COVID-19 VACCINE (2023-2 5 season) 2024 INFLUENZA VACCINE (#1) 2024 DEPRESSION SCREENING 10/27/2024 ZOSTER VACCINE (1 of 2) 2030 HIB VACCINE Aged Out No longer eligi ble based on patient's age to complete this topic HPV VACCINE Aged Out No longer eligi ble based on patient's age to complete this topic MENINGOCOCCAL (Group B) VACCINE Aged Out No longer eligible based on patient's age to complete this topic MENINGOCOCCAL VACCINE Aged Out No darius shyanne eligible based on patient's age to complete this topic PNEUMOCOCCAL VACCINE Aged Out No long er eligible based on patient's age to complete this topic Care Teams Cross Country And Track And Field Coach Relationship Specialty Start Date End Date Purvi Tavares MD [address] [place], [place] [phone] PCP - General 06/12/17
--- OUTSIDE RECORDS SUMMARY | 2024-11-22 20:53 | XMS_ITS | Patient Health Summary ---
Author Organization [facility] Address [address] [place] [address] Care Team Providers Care Military Technology Manager Name Role Phone Purvi Tavares MD Primary Care Provider Note from [facility],non-owned Affiliates and Associated Physician Practices is amultiple site organization consisting of ambulatory clinics and hospital sitesin [place], [place], [place] and [place]. This disclosure is being madepursuant to the Care Everywhere program and may not contain all information available regarding this patient. Last updated 18.[facility] Allergies * Piperacillin Sod-Tazobactam So(Other) Medications * Be aware that medications may not be up to date on this document. Alwaysverify current medications with the patient. * ofloxacin (OCUFLOX) 0.3 % ophthalmic solution(Started 07/15/2019) Instill 1 drop into right eye 4 times daily Active Problems No known active problems Social History Tobacco Use Types Packs/Day Years Used Date Smoking Tobacco: Never Smokeless Tobacco: Current Chew Sex and Gender Information Value Date Recorded Sex Assigned at Not on file Gender Identity Not on file Sexual Orientation Not on file Procedures * OPH OCT TEST SLU(Performed 07/22/2019) Performed for Diabetic retinopathy, background ([facility]) Results * OCT (07/22/2019 1:57 PM CDT) Anatomical Region Laterality Modality Other 07/22/2019 1:57 PM CDT Zofia Rene MD OPHTHALMOLOGY SERVIC ES ORDERABLES Care Teams Military Technology Manager Relationship Specialty Start Date End Date Purvi Tavares MD [address] [place], [place] [phone] PCP - General 06/12/17
[2024-11-22 20:59] VITALS: BP 141/66; PULSE 105; RESP 18; TEMP 36.9; O2SAT 99
--- NOTE | 2024-11-23 03:04 | ED.LOWEXIN ---
HPI - Extremity Injury (Lower) General Chief Complaint: Extremity Injury, Lower Stated Complaint: pain behind his R knee after a fall Time Seen by Provider: 11/23/24 02:54 History of Present Illness HPI Narrative: 43-year-old male with history of type 1 insulin-dependent diabetes presenting for evaluation of right knee pain status post fall 1 week prior. Patient states that he had a fall down 3 stairs onto his bilateral knees anteriorly. He was able to get up and did not hit his head or lose consciousness. He states he has been having pain in his knee since this happened and overlies days having worsening excruciating pain located in his inferior anterior portion of the kneecap, he is able to ambulate but any direct pressure movement makes the knee hurt more. No joint instability, able to bear weight on his right leg. Able to extend his leg, no sensory changes. He was otherwise in his normal state of health. Did not take anything for pain prior to arrival to the ED. Related Data Home Medications ?Medication ?Instructions ?Recorded ?Confirmed ?Last Taken ?Type albuterol sulfate 90 mcg/actuation 2 inh inhalation Q4-6H PRN 05/22/23 09/21/24 Unknown History breath activated powder inhaler Shortness Of Breath Or Wheezing Allergies Allergy/AdvReac Type Severity Reaction Status Date / Time piperacillin Allergy Intermediate Itching Verified 09/21/24 15:10 tazobactam Allergy Intermediate Itching Verified 09/21/24 15:10 Review of Systems Review of Systems: As reviewed above [facility] Past Medical History Medical History Abnormal CT scan, stomach Obesity Weight gain Change in bowel habits GERD (gastroesophageal reflux disease) Abdominal distension Early satiety Nausea and vomiting Chronic GERD Type 1 diabetes Surgical History Surgical History Hx of cholecystectomy Hx of appendectomy Family History Family History Mother Cerebrovascular accident Sibling Cerebrovascular accident Social History Social History Social History: The patient is single. He lives with his brother. He has 2 children. Lifelong nonsmoker. He uses marijuana. Code status full code. Smoking status: Never smoker Second hand tobacco smoke exposure: No Alcohol intake: never Substance use: current Substance use type: marijuana Lack of Transportation: No Lack of Food: Never True Current Housing: I Have Housing Concerned About Future Housing: No Difficulty Paying Gas/Electric Bills: No Difficulty Paying for Meds: No Currently Unemployed: YES Education: High School Diploma/GED Difficulty w/ Childcare or Family Care: No Spiritual care concerns: No Exam Narrative: GENERAL: [Well-appearing, well-nourished, and in no acute distress.] HEAD: [Normocephalic, atraumatic.] EYES: [PERRLA and EOMI.] ENT: Nares clear, no rhinorrhea or epistaxis. Mucous membranes moist. NECK: Supple. CHEST: [Clear to auscultation. No respiratory distress.] HEART: [Regular rate and rhythm]. No murmur heard. [Normal peripheral pulses.] ABDOMEN: [Soft, nondistended], [nontender], [No rigidity or guarding] EXTREMITIES: Right lower extremity with tenderness to palpation over the patellar tendon and tibial plateau, small to moderate joint effusion, no laxity with valgus or varus testing, no laxity with Shantell's testing. Manipulation of any illicit significant amounts of pain discomfort. Plantar and dorsiflexion of the ankle is full with good strength, able to extend the leg and hold a straight leg raise, able to flex at the hip without pain. No overlying lacerations or erythema, edema SKIN: Warm, dry, no rash. NEURO: [No focal deficits]. Alert and oriented [x3.] PSYCH: [Normal mood and affect.] Course Vital Signs Vital signs: Vital Signs Temperature 36.9 C 11/22/24 20:59 Pulse Rate 105 H 11/22/24 20:59 Respiratory Rate 18 11/22/24 20:59 Blood Pressure 141/66 H 11/22/24 20:59 Pulse Oximetry 99 11/22/24 20:59 Oxygen Delivery Room Air 11/22/24 20:59 Temperature 36.9 C 11/22/24 20:59 Pulse Rate 105 H 11/22/24 20:59 Respiratory Rate 18 11/22/24 20:59 Blood Pressure 141/66 H 11/22/24 20:59 Pulse Oximetry 99 11/22/24 20:59 Oxygen Delivery Room Air 11/22/24 20:59 MDM - Extremity Injury (Lower) MDM Narrative Medical decision making narrative: 43-year-old male with history of type 1 insulin-dependent diabetes presenting after right knee injury. He fell on his right knee about 1 week prior and was having [id number] pain throughout the last few days. Today he had worsening pain and does exhibit pain with palpation of the patellar tendon and tibial tuberosity/tibial plateau his right knee. No laxity with stress testing, is exquisitely tender with palpation but no obvious step-offs deformities. Distal plantar and dorsiflexion of the ankle is intact, strength is symmetric bilaterally, intact extensor mechanism. He is otherwise well-appearing and not in any acute distress. His strong symmetric pulses in the dorsalis pedis region and posterior tibial artery. Warm well-perfused extremity, no neurological deficits. Concern presently with his traumatic injury is for an occult fracture and especially a potential tibial plateau injury given the location of his pain and exquisite tenderness. He was provide [place] for analgesia and a CT scan of the right lower extremity without contrast was obtained. CT scan shows no acute fractures or dislocations per my interpretation. [place] interpretation confirms no fractures or dislocations and soft tissue swelling is seen overlying the knee. Patient was relayed this information and will be placed in a knee immobilizer and given crutches for ambulation assistance and refer to orthopedics for evaluation on outpatient basis. Patient did inquire about missing his insulin this evening as his pump was malfunctioning and requesting an dose. Point of care glucose obtained slightly hyperglycemic at 370, patient is not having any symptoms of hyperglycemia and otherwise appears well. He was given a weight based dose of short-acting insulin and he endorses that he has appropriate insulin regimen available form at home upon discharge. Patient and family felt comfortable with this plan of care and safely discharged home at this time with referral. Medical Records Attestation: I reviewed the patient's medical records. Lab Data Attestation: I reviewed the patient's lab results. Labs: Lab Results 11/23/24 Range/Units 03:32 POC Capillary Glucose 377 H (65-105) mg/dl Imaging Data Attestation: I personally reviewed and interpreted this imaging study as follows: My impression: No fracture dislocations, soft tissue swelling seen Discharge Plan Discharge Clinical Impression: Acute knee pain, Insulin dependent diabetes mellitus Patient Disposition: Home, Self-Care Condition: Stable Instructions: Antibiotic Form, Knee Pain (ED), Knee Immobilizer (ED) Additional Instructions: Your CT scan shows no fractures or dislocations appear knee, given her degree of swelling and pain I believe he may have injured a ligament or sprain/tore a ligament or meniscus. We will place even immobilizer and referred to Orthopedic surgery. Follow-up with them, return with any new or worsening concerns. Patient Language: Danish Prescriptions: New methocarbamol 500 mg tablet 500 mg PO HS Qty: 7 0RF ketorolac 10 mg tablet 10 mg PO Q8H PRN (Reason: pain) 5 Days Qty: 20 0RF Rx Instructions: maximum total duration of 5 days from all oral, intranasal, or parenteral formulations lidocaine 5 % adhesive patch,medicated 1 patch topical DAILY Qty: 15 0RF Rx Instructions: leave on most painful area for up to 12 hrs No Action losartan 25 mg tablet 25 mg PO DAILY Qty: 90 1RF (DME) Dexcom G7 Director Database Misc See Rx Instructions .ROUTE .MEDSUPPLY Qty: 1 0RF Rx Instructions: As directed loratadine 10 mg tablet 10 mg PO QAM Qty: 90 0RF pantoprazole 20 mg tablet,delayed release (DR/EC) 20 mg PO QAM Qty: 90 0RF (DME) Dexcom G7 Sensor Device See Rx Instructions .ROUTE .MEDSUPPLY Qty: 9 1RF Rx Instructions: As directed insulin lispro 100 unit/mL solution See Rx Instructions .ROUTE .COMPLEX Qty: 100 3RF Dose Instruction: 110 UNIT (1.1 ML) VIA CONTINUOUS SUBCUTANEOUS INFUSION DAILY MAX DAILY DOSE: 110 UNITS DAILY VIA OMNIPOD Rx Instructions: 110 UNIT (1.1 ML) VIA CONTINUOUS SUBCUTANEOUS INFUSION DAILY MAX DAILY DOSE: 110 UNITS DAILY VIA OMNIPOD Gvoke HypoPen 2-Pack 1 mg/0.2 mL auto-injector 1 mg subcut PRN PRN (Reason: Hypoglycemia) Qty: 0.4 2RF Rx Instructions: may repeat once after 15 minutes if no response (DME) Ketostix Strip See Rx Instructions .ROUTE .COMPLEX Qty: 100 0RF Dose Instruction: DIRECTED Rx Instructions: DIRECTED albuterol sulfate 90 mcg/actuation Aerosol Powdr Breath Activated 2 inh INHALATION Q4-6H PRN (Reason: Shortness Of Breath Or Wheezing) insulin lispro [Humalog KwikPen Insulin] 100 unit/mL insulin pen See Rx Instructions .ROUTE .COMPLEX Qty: 75 3RF Dose Instruction: INJECT 10UNITS BEFORE EACH MEAL. EXTRA UNITS: 150-200 1 UNIT, 201-250 2 UNITS, 251-300 3 UNITS, 301-350 4 UNITS, 351-400 5 UNITS. MAX 80 UNITS DAILY Rx Instructions: INJECT 10UNITS BEFORE EACH MEAL. EXTRA UNITS: 150-200 1 UNIT, 201-250 2 UNITS, 251-300 3 UNITS, 301-350 4 UNITS, 351-400 5 UNITS. MAX 80 UNITS DAILY (DME) insulin syringe-needle U-100 [BD Insulin Syringe Ultra-Fine] 1 mL 31 gauge x 5/16 syringe See Rx Instructions .Route Qty: 100 0RF Rx Instructions: use with insulin injections insulin glargine [Lantus Solostar U-100 Insulin] 100 unit/mL (3 mL) insulin pen See Rx Instructions .ROUTE .COMPLEX Qty: 45 0RF Dose Instruction: INJECT 50 UNITS UNDER THE SKIN ONCE DAILY Rx Instructions: INJECT 50 UNITS UNDER THE SKIN ONCE DAILY (DME) pen needle, diabetic [TRUEplus Pen Needle] 32 gauge x 5/32 needle See Rx Instructions .Route Qty: 1200 1RF Rx Instructions: use with insulin injections 4 times per day with lispro and lantus (DME) Omnipod 5 G6 Pods (Gen 5) Cartridge See Rx Instructions .Route Qty: 45 1RF Rx Instructions: change every 2 days Follow-up/Referrals: Jaret Neil MD [Physician] - 1 Week (Knee pain, knee immobilizer, concern for ligamentous injury) Nick Lugo DO [Primary Care Provider] - Time of Disposition: 04:52
[2024-11-23 03:15] VITALS: PULSE 104; RESP 16; O2SAT 96
[2024-11-23] MEDS: HYDROcodone/acetaminophen (*CRX) 10-325 MG TABLET 1 TAB PO (03:23)
[2024-11-23 03:35] LABS: Glucose Point of Care 377 mg/dl (65-105)
--- OUTSIDE RECORDS SUMMARY | 2024-11-23 03:51 | XMS_ITS | CONTINUITY OF CARE DOCUMENT ---
Author Name binaangelicamiryam perez Address Unknown Organization [facility] Address [address] [place] [address] Phone [phone] Care Team Providers Care Hotel Office Manager Name Role Phone Rodo SHARP, Philly Unavailable CALVIN SUBRAMANIAN MD Unavailable RIMA SHARP, YELENA Unavailable [phone] INSURANCE PROVIDERS Payer name Policy type / Coverage type [place] red green party ID [facility] Medicaid [id number]
--- OUTSIDE RECORDS SUMMARY | 2024-11-23 03:51 | XMS_ITS | Clinical Summary ---
Author Organization [facility] Address [address] [place] [address] Care Team Providers Care Box Puller Name Role Phone Purvi Tavares MD Primary Care Provider Source Comments [facility],non-owned Affiliates and Associated Physician Practices is amultiple site organization consisting of ambulatory clinics and hospital sitesin [place], [place], [place] and [place]. This disclosure is being madepursuant to the Care Everywhere program and may not contain all information available regarding this patient. Last updated 18.[facility] Allergies Active Allergy Reactions Criticality Noted Date [...] age to complete this topic Care Teams Box Puller Relationship Specialty Start Date End Date Purvi Tavares MD [address] [place], [place] [phone] PCP - General 06/12/17
--- OUTSIDE RECORDS SUMMARY | 2024-11-23 03:51 | XMS_ITS | Referral Summary ---
Author Organization [facility] Address [address] [place] [address] Care Team Providers Care Receptionist Scheduler Name Role Phone Purvi Tavares MD Primary Care Provider Source Comments [facility],non-owned Affiliates and Associated Physician Practices is amultiple site organization consisting of ambulatory clinics and hospital sitesin [place], [place], [place] and [place]. This disclosure is being madepursuant to the Care Everywhere program and may not contain all information available regarding this patient. Last updated 18.[facility] Allergies Active Allergy Reactions Criticality Noted Date [...] of Treatment Not on file Care Teams Receptionist Scheduler Relationship Specialty Start Date End Date Purvi Tavares MD [address] [place], [place] [phone] PCP - General 06/12/17
--- OUTSIDE RECORDS SUMMARY | 2024-11-23 03:51 | XMS_ITS | Patient Health Summary ---
Author Organization [facility] Address [address] [place] [address] Care Team Providers Care Human Anatomy Teacher Name Role Phone Purvi Tavares MD Primary Care Provider Note from [facility],non-owned Affiliates and Associated Physician Practices is amultiple site organization consisting of ambulatory clinics and hospital sitesin [place], [place], [place] and [place]. This disclosure is being madepursuant to the Care Everywhere program and may not contain all information available regarding this patient. Last updated 18.[facility] Allergies * Piperacillin Sod-Tazobactam So(Other) Medications * [...] [facility](Performed 07/22/2019) Performed for Diabetic retinopathy, background ([facility]) Results * OCT (07/22/2019 1:57 PM CDT) Anatomical Region Laterality Modality Other 07/22/2019 1:57 PM CDT Zofia Rene MD OPHTHALMOLOGY SERVIC ES ORDERABLES Care Teams Human Anatomy Teacher Relationship Specialty Start Date End Date Purvi Tavares MD [address] [place], [place] [phone] PCP - General 06/12/17
[2024-11-23] MEDS: INSULIN ASPART (*BKC) 100 UNITS/ML 10 UNITS SUB-Q (04:41)
[2024-11-23 05:47] VITALS: BP 138/91; PULSE 103; RESP 16; O2SAT 97
== END 2024-11-23 05:52 | disposition home or self-care (01) ==
PROVIDERS: Emergency Provider Student in an Organized Health Care Education/Training Program; PCP Internal Medicine
DX: S89.91XA Unspecified injury of right lower leg, initial encounter (principal); E10.9 Type 1 diabetes mellitus without complications; E66.9 Obesity, unspecified; K21.9 Gastro-esophageal reflux disease without esophagitis; Z90.49 Acquired absence of other specified parts of digestive tract; Z79.899 Other long term (current) drug therapy; Z79.4 Long term (current) use of insulin; W10.9XXA Fall (on) (from) unspecified stairs and steps, initial encounter
CPT/HCPCS: 73700; 82948; 99284; A9270; J1815

== ENCOUNTER 2024-11-30 11:07 | Outpatient (CLI) | payer OTHER, SELFPAY ==
--- NOTE | ~2024-11-30 | XR_ITS ---
Right Knee Technique: AP, lateral, and sunrise views were obtained. Clinical History: Pain Findings: No fracture or dislocation is seen. Osseous alignment is anatomic. Joint spaces are preserv ed without degenerative or erosive change. Soft tissues are unremarkable. No joint effusion is seen. Impression: Unremarkable right knee radiographs. Reviewed, dictated and finalized at location . LTY MEMBER Impression: Unremarkable right knee radiographs.
--- OUTSIDE RECORDS SUMMARY | 2024-11-30 11:49 | XMS_ITS | Referral Summary ---
Author Organization [facility] Address [address] [place] [address] Care Team Providers Care Parking Meter Mechanic Name Role Phone Purvi Tavares MD Primary Care Provider Source Comments [facility],non-owned Affiliates and Associated Physician Practices is amultiple site organization consisting of ambulatory clinics and hospital sitesin [place], [place], [place] and [place]. This disclosure is being madepursuant to the Care Everywhere program and may not contain all information available regarding this patient. Last updated 18.[facility] Allergies Active Allergy Reactions Criticality Noted Date [...] of Treatment Not on file Care Teams Parking Meter Mechanic Relationship Specialty Start Date End Date Purvi Tavares MD [address] [place], [place] [phone] PCP - General 06/12/17
--- OUTSIDE RECORDS SUMMARY | 2024-11-30 11:49 | XMS_ITS | Clinical Summary ---
Author Organization [facility] Address [address] [place] [address] Care Team Providers Care Projects Manager Name Role Phone Purvi Tavares MD Primary Care Provider Source Comments [facility],non-owned Affiliates and Associated Physician Practices is amultiple site organization consisting of ambulatory clinics and hospital sitesin [place], [place], [place] and [place]. This disclosure is being madepursuant to the Care Everywhere program and may not contain all information available regarding this patient. Last updated 18.[facility] Allergies Active Allergy Reactions Criticality Noted Date [...] age to complete this topic Care Teams Projects Manager Relationship Specialty Start Date End Date Purvi Tavares MD [address] [place], [place] [phone] PCP - General 06/12/17
--- OUTSIDE RECORDS SUMMARY | 2024-11-30 11:49 | XMS_ITS | Patient Health Summary ---
Author Organization [facility] Address [address] [place] [address] Care Team Providers Care Form Press Operator Name Role Phone Purvi Tavares MD Primary Care Provider Note from [facility],non-owned Affiliates and Associated Physician Practices is amultiple site organization consisting of ambulatory clinics and hospital sitesin [place], [place], [place] and [place]. This disclosure is being madepursuant to the Care Everywhere program and may not contain all information available regarding this patient. Last updated 18.[facility] Allergies * Piperacillin Sod-Tazobactam So(Other) Medications * [...] [facility](Performed 07/22/2019) Performed for Diabetic retinopathy, background ([facility]) Results * OCT (07/22/2019 1:57 PM CDT) Anatomical Region Laterality Modality Other 07/22/2019 1:57 PM CDT Zofia Rene MD OPHTHALMOLOGY SERVIC ES ORDERABLES Care Teams Form Press Operator Relationship Specialty Start Date End Date Purvi Tavares MD [address] [place], [place] [phone] PCP - General 06/12/17
== END 2024-11-30 11:08 | disposition home or self-care (01) ==
PROVIDERS: PCP Internal Medicine; Visit Provider Orthopaedic Surgery
DX: M25.561 Pain in right knee (principal)
CPT/HCPCS: 73562

== ENCOUNTER 2024-12-16 15:38 | Outpatient (CLI) | payer OTHER, SELFPAY ==
--- NOTE | ~2024-12-16 | MR_ITS ---
EXAMINATION: MR knee RT wo con DATE: 12/16/2024 16:22 INDICATION: Other tear of medial meniscus, current injury. TECHNIQUE: Magnetic resonance imaging (MRI) of the right knee was performed without intravenous contr ast. Sequences included axial PD-weighted FS FSE, coronal PD-weighted FSE and PD-weighted FS FSE, sag ittal PD-weighted FSE, and sagittal T2-weighted FS FSE. COMPARISON: Right knee radiographs 11/30/2024 FINDINGS: Medial compartment: Medial meniscus is normal. There is cartilage surface irregularity of tibial condyle and femoral cond yle. Lateral compartment: Lateral meniscus is normal. There is cartilage surface irregularity of femoral condyle. Tibial cartil age is normal. Patellofemoral compartment: The patellar cartilage is normal. Trochlear cartilage is normal. Ligaments and tendons: The anterior and posterior cruciate ligaments are normal. Medial collateral ligament is normal. There are changes of prior sprain of fibular collateral ligament characterized by thickening and increased signal intensity proximally. There is mild patellar tendinopathy. Fluid: There is a small knee joint effusion. There is a small Alexander's cyst. There is mild superficial infrap atellar bursitis. IMPRESSION: 1. Mild chondrosis of medial and lateral compartments. 2. Small knee joint effusion. 3. Small Alexander's cyst. Reviewed, dictated and finalized at location A. ER MACHINE OPERATOR
--- OUTSIDE RECORDS SUMMARY | 2024-12-16 15:42 | XMS_ITS | Referral Summary ---
Author Organization [facility] Address [address] [place] [address] Care Team Providers Care Steam Pressure Chamber Operator Name Role Phone Purvi Tavares MD Primary Care Provider Source Comments [facility],non-owned Affiliates and Associated Physician Practices is amultiple site organization consisting of ambulatory clinics and hospital sitesin [place], [place], [place] and [place]. This disclosure is being madepursuant to the Care Everywhere program and may not contain all information available regarding this patient. Last updated 18.[facility] Allergies Active Allergy Reactions Criticality Noted Date [...] of Treatment Not on file Care Teams Steam Pressure Chamber Operator Relationship Specialty Start Date End Date Purvi Tavares MD [address] [place], [place] [phone] PCP - General 06/12/17
--- OUTSIDE RECORDS SUMMARY | 2024-12-16 15:42 | XMS_ITS | Clinical Summary ---
Author Organization [facility] Address [address] [place] [address] Care Team Providers Care Youth Care Professional Name Role Phone Purvi Tavares MD Primary Care Provider Source Comments [facility],non-owned Affiliates and Associated Physician Practices is amultiple site organization consisting of ambulatory clinics and hospital sitesin [place], [place], [place] and [place]. This disclosure is being madepursuant to the Care Everywhere program and may not contain all information available regarding this patient. Last updated 18.[facility] Allergies Active Allergy Reactions Criticality Noted Date [...] age to complete this topic Care Teams Youth Care Professional Relationship Specialty Start Date End Date Purvi Tavares MD [address] [place], [place] [phone] PCP - General 06/12/17
--- OUTSIDE RECORDS SUMMARY | 2024-12-16 15:42 | XMS_ITS | Patient Health Summary ---
Author Organization [facility] Address [address] [place] [address] Care Team Providers Care Rapid Outsole Stitcher Name Role Phone Purvi Tavares MD Primary Care Provider Note from [facility],non-owned Affiliates and Associated Physician Practices is amultiple site organization consisting of ambulatory clinics and hospital sitesin [place], [place], [place] and [place]. This disclosure is being madepursuant to the Care Everywhere program and may not contain all information available regarding this patient. Last updated 18.[facility] Allergies * Piperacillin Sod-Tazobactam So(Other) [...] [facility](Performed 07/22/2019) Performed for Diabetic retinopathy, background ([facility]) Results * OCT (07/22/2019 1:57 PM CDT) Anatomical Region Laterality Modality Other 07/22/2019 1:57 PM CDT Zofia Rene MD OPHTHALMOLOGY SERVIC ES ORDERABLES Care Teams Rapid Outsole Stitcher Relationship Specialty Start Date End Date Purvi Tavares MD [address] [place], [place] [phone] PCP - General 06/12/17
== END 2024-12-16 15:39 | disposition home or self-care (01) ==
PROVIDERS: PCP Internal Medicine; Visit Provider Orthopaedic Surgery
DX: S83.241A Other tear of medial meniscus, current injury, right knee, initial encounter (principal); X58.XXXA Exposure to other specified factors, initial encounter; M25.461 Effusion, right knee; M71.21 Synovial cyst of popliteal space [Baker], right knee
CPT/HCPCS: 73721

== ENCOUNTER 2025-02-15 15:12 | Outpatient (CLI) | payer OTHER, SELFPAY ==
--- NOTE | ~2025-02-15 | XR_ITS ---
Exam: Abdomen 1V HISTORY: abdominal distension COMPARISON: None. TECHNIQUE: Supine images of the abdomen FINDINGS: Bowel gas pattern is nonspecific and non-obstructive. There is no free air or deep sulci. No pathologic calcifications are seen. Clips within the right upper quadrant consistent with prior cholecystectomy. Fecal stasis within the rectum. Bones and soft tissues are unremarkable. IMPRESSION: Nonspecific, nonobstructive bowel gas pattern, as detailed above. Reviewed, dictated and finalized at location A.
--- OUTSIDE RECORDS SUMMARY | 2025-02-15 17:25 | XMS_ITS | Clinical Summary ---
Author Organization [facility] [employer] Address [address] [place] [address] Care Team Providers Care Exceptional Children Teacher Assistant Name Role Phone Purvi Tavares MD Primary Care Provider Source Comments [facility] [employer],non-owned Affiliates and Associated Physician Practices is amultiple site organization consisting of ambulatory clinics and hospital sitesin [place], [place], [place] and [place]. This disclosure is being madepursuant to the Care Everywhere program and may not contain all information available regarding this patient. Last updated 18.[facility] [employer] Allergies Active Allergy Reactions Criticality Noted Date Comments Piperacillin Sod-Tazobactam So Other 07/22 Medications * Be aware that medications may not be up to date on this document. Alwaysverify current medications with the patient. ofloxacin (OCUFLOX) 0.3 % ophthalmic solution Instill 1 drop into right eye 4 times daily 5 mL 07/15/2019 Active Active Problems No known active problems Social History Tobacco Use Types Packs/Day Years Used Date Smoking Tobacco: Never Smokeless Tobacco: Current Chew Sex and Gender Information Value Date Recorded Sex Assigned at Not on file Legal Sex Male 9:58 AM CDT Gender Identity Not on file Sexual Orientation Not on file Plan of Treatment Health Maintenance Due Date Last Done Comments LIPID TESTING 1980 HIV SCREENING 1995 HEPATITIS C SCREENING 11/24/1998 DTAP/TDAP/TD VACCINES (1 - Tdap) 1999 HEPATITIS B VACCINE (1 of 3 - 19+ 3-dose series) 1999 COVID-19 VACCINE (2023-2 5 season) 2024 DEPRESSION SCREENING 10/27/2024 INFLUENZA VACCINE (Season Ended) 2025 ZOSTER VACCINE (1 of 2) 2030 HIB VACCINE Aged Out No longer eligi ble based on patient's age to complete this topic HPV VACCINE Aged Out No longer eligi ble based on patient's age to complete this topic MENINGOCOCCAL (Group B) VACC INE SHARED DECISION-MAKING Aged Out No longer eligibl e based on patient's age to complete this topic MENINGOCOCCAL GROUPS A/C/Y/W VACCINE Aged Out No longer eligible b ased on patient's age to complete this topic PNEUMOCOCCAL VACCINE Aged Out No long er eligible based on patient's age to complete this topic [place] [address] [employer] Care Teams Exceptional Children Teacher Assistant Relationship Specialty Start Date End Date Purvi Tavares MD [address] [place], [place] [phone] PCP - General 06/12/17
--- OUTSIDE RECORDS SUMMARY | 2025-02-15 17:25 | XMS_ITS | CONTINUITY OF CARE DOCUMENT ---
Author Name binaangelicamiryam perez Address Unknown Organization [facility] Address [address] [place] [address] Phone [phone] Care Team Providers Care Foreign Collection Clerk Name Role Phone Rodo SHARP, Philly Unavailable CALVIN SUBRAMANIAN MD Unavailable RIMA SHARP, YELENA Unavailable [phone] INSURANCE PROVIDERS Payer name Policy type / Coverage type [place] red libertarian ID [facility] Medicaid [id number]
== END 2025-02-15 15:13 | disposition home or self-care (01) ==
PROVIDERS: PCP Internal Medicine; Visit Provider Nurse Practitioner
DX: R11.10 Vomiting, unspecified (principal); R11.2 Nausea with vomiting, unspecified; R14.0 Abdominal distension (gaseous)
CPT/HCPCS: 74018

== ENCOUNTER 2025-02-21 01:10 | Day surgery (SDC) | payer OTHER, SELFPAY ==
[2025-02-18 12:50] VITALS: BMI 35.7
--- OUTSIDE RECORDS SUMMARY | 2025-02-21 01:11 | XMS_ITS | CONTINUITY OF CARE DOCUMENT ---
Author Name binaangelicamiryam perez Address Unknown Organization [facility] Address [address] [place] [address] Phone [phone] Care Team Providers Care Medical Sales Name Role Phone Rodo SHARP, Philly Unavailable [phone] CALVIN SUBRAMANIAN MD Unavailable [phone] RIMA SHARP, YELENA Unavailable INSURANCE PROVIDERS Payer name Policy type / Coverage type [place] red constitution party ID [facility] Medicaid [id number]
--- OUTSIDE RECORDS SUMMARY | 2025-02-21 01:11 | XMS_ITS | Clinical Summary ---
Author Organization [facility] [employer] Address [address] [place] [address] Care Team Providers Care Adding Machine Servicer Name Role Phone Purvi Tavares MD Primary Care Provider Source Comments [facility] [employer],non-owned Affiliates and Associated Physician Practices is amultiple site organization consisting of ambulatory clinics and hospital sitesin [place], [place], [place] and [place]. This disclosure is being madepursuant to the Care Everywhere program and may not contain all information available regarding this patient. Last updated 18.[facility] [employer] Allergies Active Allergy Reactions Criticality Noted Date [...] patient's age to complete this topic Insurance [address] [address] [id number] PLAN Care Teams Adding Machine Servicer Relationship Specialty Start Date End Date Purvi Tavares MD [address] [place], [place] [phone] PCP - General 06/12/17
[2025-02-21 07:08] VITALS: BP 154/82; PULSE 113; RESP 20; TEMP 36.1; O2SAT 98
[2025-02-21 07:09] VITALS: BMI 35.1
[2025-02-21] MEDS: LACTATED RINGERS 1,000 ML 150 ML IV CONT (07:26)
[2025-02-21 07:31] LABS: Glucose Point of Care 171 mg/dl (65-105)
--- NOTE | 2025-02-21 07:57 | WPDANESEPPF ---
Anes - Initial Pre Proc Eval Procedure: Operation Date: 02/21/25 08:30 Proposed Procedures p Esophagogastroduodenoscopy - Cristiano Calixto MD Date/Time: 02/21/25 07:57 Surgeon: Cristiano Calixto MD Pre Op Diagnosis: Gastro-esophageal reflux disease without esophagit Patient Data Age: 44 Gender: M Height: 1.8 m Weight: 114.2 kg Last Vital Signs Temp 97 F L 02/21/25 07:08 Pulse 113 H 02/21/25 07:08 Resp 20 02/21/25 07:08 BP 154/82 H 02/21/25 07:08 Pulse Ox 98 02/21/25 07:08 O2 Del Method Room Air 02/21/25 07:08 Allergies Allergy/AdvReac Type Severity Reaction Status Date / Time piperacillin Allergy Intermediate Itching Verified 02/21/25 07:05 tazobactam Allergy Intermediate Itching Verified 02/21/25 07:05 Home Medications ?Medication ?Instructions ?Recorded ?Confirmed ?Type albuterol sulfate 90 mcg/actuation 2 inh inhalation Q4-6H PRN 05/22/23 02/18/25 History breath activated powder inhaler Shortness Of Breath Or Wheezing blood-glucose,compliance paralegal,cont #1 ea 07/15/24 02/18/25 Rx (Dexcom G7 Insulation Batting Machine Operator) acetone (urine) test (Ketostix #100 strips 08/10/24 02/15/25 Rx strips) glucagon 1 mg/0.2 mL subcutaneous 1 mg (0.2 mL) subcut PRN PRN 08/10/24 02/18/25 Rx auto-injector (Gvoke HypoPen Hypoglycemia #0.4 mL 2-Pack) insulin pump cart,automated,BT #45 ea 08/17/24 02/18/25 Rx (Omnipod 5 G6 Pods (Gen 5) subcutaneous cartridge) insulin lispro 100 unit/mL 100 unit continuous subcutaneous 12/21/24 02/21/25 Rx subcutaneous solution (Humalog infusion DAILY 90 days #90 mL U-100 Insulin) lidocaine 5 % topical patch 3 patch topical DAILY #15 ea 12/21/24 02/21/25 Rx losartan 25 mg tablet 25 mg PO DAILY #90 tabs 12/21/24 02/21/25 Rx rosuvastatin 40 mg tablet 40 mg PO DAILY #90 tabs 12/21/24 02/21/25 Rx blood-glucose sensor (Dexcom G7 #9 ea 12/27/24 02/18/25 Rx Sensor device) diclofenac sodium 75 mg See Rx Instructions .Route 12/30/24 02/21/25 Rx tablet,delayed release .COMPLEX #60 tabs insulin pump cart,auto,BT,G6/7 #30 ea 01/10/25 02/18/25 Rx (Omnipod 5 G6-G7 Pods (Gen 5) subcutaneous cartridge) metoclopramide HCl 10 mg tablet 10 mg PO ACHS #120 tabs 02/15/25 02/18/25 Rx (Reglan) pantoprazole 40 mg tablet,delayed 40 mg PO QAM #30 tabs 02/15/25 02/21/25 Rx release insulin glargine 100 unit/mL (3 40 unit subcut DAILY 02/18/25 02/21/25 History mL) subcutaneous pen (Lantus Solostar U-100 Insulin) Laboratory Tests 02/21/25 07:16 POC Capillary Glucose 171 H mg/dl (65-105) Patient hx anesthesia problems: none Family hx anesthesia problems: none Results Review: All pre-operative results and documents have been reviewed as part of the pre-operative evaluation. [facility] Past Medical History Medical History Abnormal CT scan, stomach Obesity Weight gain Change in bowel habits GERD (gastroesophageal reflux disease) Abdominal distension Early satiety Nausea and vomiting Chronic GERD Type 1 diabetes Surgical History Surgical History Hx of cholecystectomy Hx of appendectomy Family History Family History Mother Cerebrovascular accident Sibling Cerebrovascular accident Social History Social History Social History: The patient is single. He lives with his brother. He has 2 children. Lifelong nonsmoker. He uses marijuana. Code status full code. Smoking status: Current some day smoker Second hand tobacco smoke exposure: No Substance use: current Substance use type: marijuana Do You Feel Safe in your Home?: Yes Lack of Transportation: No Lack of Food: Never True Current Housing: I Have Housing Concerned About Future Housing: YES Difficulty Paying Gas/Electric Bills: YES Difficulty Paying for Meds: YES Currently Unemployed: YES Education: High School Diploma/GED Difficulty w/ Childcare or Family Care: No Living arrangements: alone Anes - Eval Final PreProcedure Day of Procedure 02/21/25 07:57 Patient weight: obese Lungs: normal air movement Airway: Mallampati scale Neurological: alert and oriented Last oral intake: >/= 8 hours ASA classification: III Emergent: no Anesthetic plan: proceed Anesthesia type and monitoring: general GIVS and standard monitoring Results Review: All pre-operative results and documents have been reviewed as part of the pre-operative evaluation. HTN, hyperlipidemia, DM fsbs 171, ECHO 2021 EF 45-50%. Pt active w mowing grass, weed eating, no cp or sob. Informed Consent: The patient's anesthetic plan and its attendant risks and benefits were discussed with the patient/family/POA. Questions were solicited and answers provided to the satisfaction of the patient/family/POA.
--- NOTE | 2025-02-21 08:32 | PM.IMHP ---
H&P: HPI History of Present Illness Date/Time: 02/21/25 08:32 Chief Complaint: GERD-abdominal discomfort Narrative: the patient has a history diabetes, having had recent DKA. Apparently he has been diagnosed with gastroparesis and has significant dyspepsia and heartburn. He is here for EGD. Review of Systems Review of Systems: All systems reviewed & are unremarkable except as noted in HPI and below PMFSH Past Medical History Medical History Abnormal CT scan, stomach Obesity Weight gain Change in bowel habits GERD (gastroesophageal reflux disease) Abdominal distension Early satiety Nausea and vomiting Chronic GERD Type 1 diabetes Surgical History Surgical History Hx of cholecystectomy Hx of appendectomy Family History Family History Mother Cerebrovascular accident Sibling Cerebrovascular accident Social History Social History Social History: The patient is single. He lives with his brother. He has 2 children. Lifelong nonsmoker. He uses marijuana. Code status full code. Smoking status: Current some day smoker Second hand tobacco smoke exposure: No Substance use: current Substance use type: marijuana Do You Feel Safe in your Home?: Yes Lack of Transportation: No Lack of Food: Never True Current Housing: I Have Housing Concerned About Future Housing: YES Difficulty Paying Gas/Electric Bills: YES Difficulty Paying for Meds: YES Currently Unemployed: YES Education: High School Diploma/GED Difficulty w/ Childcare or Family Care: No Living arrangements: alone Meds Home Medications and Allergies Home Medications ?Medication ?Instructions ?Recorded ?Confirmed ?Type albuterol sulfate 90 mcg/actuation 2 inh inhalation Q4-6H PRN 05/22/23 02/18/25 History breath activated powder inhaler Shortness Of Breath Or Wheezing blood-glucose,seed cleaner operator,cont #1 ea 07/15/24 02/18/25 Rx (Dexcom G7 Superintendent Production) acetone (urine) test (Ketostix #100 strips 08/10/24 02/15/25 Rx strips) glucagon 1 mg/0.2 mL subcutaneous 1 mg (0.2 mL) subcut PRN PRN 10/15/24 04/25/25 Rx auto-injector (Gvoke HypoPen Hypoglycemia #0.4 mL 2-Pack) insulin pump cart,automated,BT #45 ea 08/17/24 02/18/25 Rx (Omnipod 5 G6 Pods (Gen 5) subcutaneous cartridge) insulin lispro 100 unit/mL 100 unit continuous subcutaneous 12/21/24 02/21/25 Rx subcutaneous solution (Humalog infusion DAILY 90 days #90 mL U-100 Insulin) lidocaine 5 % topical patch 3 patch topical DAILY #15 ea 12/21/24 02/21/25 Rx losartan 25 mg tablet 25 mg PO DAILY #90 tabs 12/21/24 02/21/25 Rx rosuvastatin 40 mg tablet 40 mg PO DAILY #90 tabs 12/21/24 02/21/25 Rx blood-glucose sensor (Dexcom G7 #9 ea 12/27/24 02/18/25 Rx Sensor device) diclofenac sodium 75 mg See Rx Instructions .Route 12/30/24 02/21/25 Rx tablet,delayed release .COMPLEX #60 tabs insulin pump cart,auto,BT,G6/7 #30 ea 01/10/25 02/18/25 Rx (Omnipod 5 G6-G7 Pods (Gen 5) subcutaneous cartridge) metoclopramide HCl 10 mg tablet 10 mg PO ACHS #120 tabs 02/15/25 02/18/25 Rx (Reglan) pantoprazole 40 mg tablet,delayed 40 mg PO QAM #30 tabs 02/15/25 02/21/25 Rx release insulin glargine 100 unit/mL (3 40 unit subcut DAILY 02/18/25 02/21/25 History mL) subcutaneous pen (Lantus Solostar U-100 Insulin) Allergies Allergy/AdvReac Type Severity Reaction Status Date / Time piperacillin Allergy Intermediate Itching Verified 02/21/25 07:05 tazobactam Allergy Intermediate Itching Verified 02/21/25 07:05 Vital Signs Vital Signs - 24 hr 02/21/25 07:08 Temperature 97 F L Pulse Rate 113 H Respiratory Rate 20 Blood Pressure 154/82 H Pulse Oximetry 98 Oxygen Delivery Room Air Exam Const: General: cooperative and healthy appearing Resp: Effort & Inspection: normal respiratory effort and able to speak in complete sentences Auscultation: clear to auscultation bilaterally Cardio: Rate: regular rate Rhythm: regular rhythm GI: Inspection: normal to inspection GI Palp: No No hepatosplenomegaly present Auscultation: normal bowel sounds Rectal Exam: deferred Skin: General skin exam: normal color Psych: Appearance: grossly normal Mental Status: mental status grossly normal Assessment and Plan Assessment and plan (1) Chronic GERD: Code(s): K21.9 - Gastro-esophageal reflux disease without esophagitis Status: Acute Assessment and Plan: The patient is deemed a good candidate for the procedure. Consent signed. Will proceed. (2) Gastroparesis: Code(s): K31.84 - Gastroparesis Status: Acute (3) Nausea and vomiting: Code(s): R11.2 - Nausea with vomiting, unspecified Status: Acute
[2025-02-21 08:52] VITALS: BP 116/69; PULSE 96; RESP 19; O2SAT 97
[2025-02-21 09:02] VITALS: BP 115/60; PULSE 98; RESP 19; O2SAT 97
[2025-02-21 09:12] VITALS: BP 117/63; PULSE 95; RESP 18; O2SAT 100
[2025-02-21 09:16] LABS: Glucose Point of Care 101 mg/dl (65-105)
== END 2025-02-21 09:19 | disposition home or self-care (01) ==
PROVIDERS: PCP Internal Medicine; Referring Provider Nurse Practitioner; Visit Provider Internal Medicine Gastroenterology
PROC: 0DJ08ZZ Inspection of Upper Intestinal Tract, Via Natural or Artificial Opening Endoscopic (ICD-10-PCS; CPT 43239; principal; 2025-02-21 08:30)
DX: K21.9 Gastro-esophageal reflux disease without esophagitis (principal); R10.9 Unspecified abdominal pain; K31.84 Gastroparesis; R11.2 Nausea with vomiting, unspecified; K44.9 Diaphragmatic hernia without obstruction or gangrene; E10.43 Type 1 diabetes mellitus with diabetic autonomic (poly)neuropathy; Z79.4 Long term (current) use of insulin; Z96.41 Presence of insulin pump (external) (internal)
CPT/HCPCS: 43239; 82948; 88305; J2003; J2704; J7120

== ENCOUNTER 2025-04-12 20:53 | Emergency (ER) | payer OTHER, SELFPAY ==
[2025-04-12] VITALS (19 sets, daily range): BP systolic 130–167; BP diastolic 73–83; PULSE 86–97; RESP 11–21; TEMP 36.8; O2SAT 97–99
--- NOTE | ~2025-04-12 | CT_ITS ---
EXAMINATION: CTA chest abdomen pelvis DATE: 04/12/2025 22:52 CDT INDICATION: Shortness of breath and chest pain with history of aortic aneurysm TECHNIQUE: Computed tomographic angiography (CTA) of the chest was performed, along with multiple con tiguous axial images of the abdomen and pelvis with 100 mL Omnipaque-350 intravenous contrast. The do se-length product was 1459.54 mGy-cm. Maximum intensity projection 3D-reconstructions of the aorta an d other arteries were constructed by the technologist on a separate workstation. FINDINGS/OBSERVATIONS: PULMONARY ARTERIES: No filling defect is identified within the main or proximal pulmonary artery. The main pulmonary artery is not enlarged. THORACIC AORTA: No aneurysmal dilatation or dissection is present. The great vessels are intact LUNGS: The lungs are clear. MEDIASTINUM: No morphologically suspicious or pathologically enlarged lymph nodes are identified with in the mediastinum or bilateral axilla. BONES OF THE CHEST: No acute fracture. No significant degenerative disease. No lytic or blastic lesions. HEART: The heart is of normal size, without pericardial effusion. LIVER: The liver enhances homogeneously and is enlarged measuring 21 cm in longitudinal dimension. GALLBLADDER AND BILIARY SYSTEM: The gallbladder is surgically absent. PANCREAS: The pancreas enhances homogeneously without ductal dilatation. SPLEEN: The spleen enhances homogeneously and is not enlarged. KIDNEYS: The bilateral kidneys enhance symmetrically without hydronephrosis or renal calculi. ADRENAL GLANDS: Unremarkable. GASTROINTESTINAL TRACT: Moderate hiatal hernia. Fecal stasis within the rectum. APPENDIX: The appendix is not definitively visualized. However, no pericecal inflammatory change is identified suggest the presence of acute appendicitis. VASCULATURE: Unremarkable. No aneurysmal dilatation within the thoracic or abdominal aorta or bilateral iliac arteries. No calcified atherosclerotic disease. LYMPH NODES: No pathologically enlarged or morphologically suspicious lymph nodes within the retroperitoneum or at the root of the mesentery. PELVIC STRUCTURES: The bladder is minimally distended, and otherwise unremarkable. The prostate gland is not enlarged. BODY WALL AND MUSCULOSKELETAL: Small fat-containing umbilical hernia. No significant degenerative disease within the lower thoracic or lumbosacral spine. IMPRESSION: No pulmonary embolus. No aortic aneurysm. Moderate hiatal hernia. The lungs are clear. Reviewed, dictated and finalized at location A.
--- NOTE | ~2025-04-12 | XR_ITS ---
CHEST RADIOGRAPH CLINICAL HISTORY: LEFT SIDE CHEST PAIN AND SWELLING TO ABD AND EXTREMITIES . COMPARISON: 06/05/2023 TECHNIQUE: Single portable view of the chest. FINDINGS The cardiomediastinal silhouette is unremarkable. The lungs are clear. IMPRESSION: No focal infiltrate or effusion. Reviewed, dictated and finalized at location A.
--- NOTE | 2025-04-12 20:55 | ECG_ITS ---
Test Date: 2025-04-12 21:04:28 Measurements Intervals [place] Rate: 93 P: 50 WI: 148 QRS: -2 QRSD: 100 T: 85 QT: 344 QTc: 428 Interpretive Statements SINUS RHYTHM INCOMPLETE RIGHT BUNDLE BRANCH BLOCK NONSPECIFIC T-WAVE ABNORMALITY- ANTEROLAT/HIGH LAT LEADS BASELINE ARTIFACT- V4-V6 BORDERLINE ECG No previous ECG available for comparison Electronically Signed On 04-13-2025 06:20:52 CDT by Fernando Gary D.O.
--- OUTSIDE RECORDS SUMMARY | 2025-04-12 20:56 | XMS_ITS | Clinical Summary ---
Author Organization [facility] Address [address] [place] [address] Care Team Providers Care City Weighmaster Name Role Phone Purvi Tavares MD Primary Care Provider Source Comments [facility],non-owned Affiliates and Associated Physician Practices is amultiple site organization consisting of ambulatory clinics and hospital sitesin [place], [place], [place] and [place]. This disclosure is being madepursuant to the Care Everywhere program and may not contain all information available regarding this patient. Last updated 18.[facility] Allergies Active Allergy Reactions Criticality Noted Date [...] patient's age to complete this topic Insurance [address] PLAN [facility] SELF PAY NO INSURANCE Member Subscriber Plan / Payer (Ef fective for All Dates) Name:Jim Santos Member ID:Not on file Relation to Subscriber:Not on file Name:JIM SANTOS Subscriber ID:Not on file (Home) Address: [address] [place] [address] Payer ID:Not on file Group ID:Not on file Type:Self Pay Address: [place], [place] Care Teams City Weighmaster Relationship Specialty Start Date End Date Purvi Tavares MD [address] [place], [place] [phone] PCP - General 06/12/17
--- OUTSIDE RECORDS SUMMARY | 2025-04-12 20:56 | XMS_ITS | CONTINUITY OF CARE DOCUMENT ---
Author Name binaangelicamiryam perez Address Unknown Organization [facility] Address [address] [place] [address] Phone [phone] Care Team Providers Care Mechanical Drafter Name Role Phone Rodo SHARP, Philly Unavailable CALVIN SUBRAMANIAN MD Unavailable [phone] RIMA SHARP, YELENA Unavailable INSURANCE PROVIDERS Payer name Policy type / Coverage type [place] red republican ID [id number] Medicaid [id number]
--- NOTE | 2025-04-12 21:09 | ED_ITS ---
HPI - Chest Pain General Chief Complaint: Chest Pain Stated Complaint: chest pain, whole body swelling, cant breathe Time Seen by Provider: 04/12/25 20:55 History of Present Illness HPI narrative: 44-year-old male with a history of insulin-dependent diabetes, GERD, reflux esophagitis, hiatal hernia. Patient presents to the emergency department with left-sided chest pain. Patient states that has been going on for ?some time now ?but worsening. He is also endorsing swelling in his hands and feet which is also not new. He had EGD done in January of this year that showed reflux esophagitis. He follows with a manager business development hospice and GI doctor. Reported history of gastroparesis and also potential aneurysm in his chest near his heart according to the patient. He states he has a cardiology appointment to establish care to discuss this next week. Patient sources worsening pain in his chest, shortness of breath, epigastric discomfort described as indigestion. No nausea, vomiting, diarrhea, abdominal pain, back pain, flank pain, dysuria, constipation. No trauma or injury. No fever chills. Related Data Home Medications ?Medication ?Instructions ?Recorded ?Confirmed ?Last Taken ?Type albuterol sulfate 90 mcg/actuation 2 inh inhalation Q4-6H PRN 05/22/23 03/29/25 Unknown History breath activated powder inhaler Shortness Of Breath Or Wheezing Allergies Allergy/AdvReac Type Severity Reaction Status Date / Time piperacillin Allergy Intermediate Itching Verified 04/12/25 21:05 tazobactam Allergy Intermediate Itching Verified 04/12/25 21:05 Review of Systems 2 Review of Systems: As reviewed [facility] Past Medical History Medical History Abnormal CT scan, stomach Obesity Weight gain Change in bowel habits GERD (gastroesophageal reflux disease) Abdominal distension Early satiety Nausea and vomiting Chronic GERD Type 1 diabetes Surgical History Surgical History Hx of cholecystectomy Hx of appendectomy Family History Family History Mother Cerebrovascular accident Sibling Cerebrovascular accident Social History Social History Social History: The patient is single. He lives with his brother. He has 2 children. Lifelong nonsmoker. He uses marijuana. Code status full code. Smoking status: Current some day smoker Second hand tobacco smoke exposure: No Substance use: current Substance use type: marijuana Do You Feel Safe in your Home?: Yes Lack of Transportation: No Lack of Food: Never True Current Housing: I Have Housing Concerned About Future Housing: YES Difficulty Paying Gas/Electric Bills: YES Difficulty Paying for Meds: YES Currently Unemployed: YES Education: High School Diploma/GED Difficulty w/ Childcare or Family Care: No Living arrangements: alone Exam 2 Narrative: GENERAL: [Well-appearing, well-nourished, and in no acute distress.] HEAD: [Normocephalic, atraumatic.] EYES: [PERRLA and EOMI.] ENT: Nares clear, no rhinorrhea or epistaxis. Mucous membranes moist. NECK: Supple. CHEST: [Clear to auscultation. No respiratory distress.] HEART: [Regular rate and rhythm]. No murmur heard. [Normal peripheral pulses.] ABDOMEN: [Soft, nondistended], [nontender], [No rigidity or guarding] EXTREMITIES: Normal range of motion. [No edema.] SKIN: Warm, dry, no rash. NEURO: [No focal deficits]. Alert and oriented [x3.] PSYCH: [Normal mood and affect.] Course Vital Signs Vital signs: Vital Signs Temperature 36.8 C 04/12/25 20:56 Pulse Rate 96 04/12/25 20:56 Respiratory Rate 12 04/12/25 20:56 Blood Pressure 167/83 H 04/12/25 20:56 Pulse Oximetry 97 04/12/25 20:56 Oxygen Delivery Room Air 04/12/25 20:56 Temperature 36.9 C 04/13/25 01:26 Pulse Rate 93 04/13/25 01:26 Respiratory Rate 16 04/13/25 01:26 Blood Pressure 129/74 04/13/25 01:26 Pulse Oximetry 97 04/13/25 01:26 Oxygen Delivery Room Air 04/12/25 21:10 MDM - Chest Pain MDM Narrative Medical decision making narrative: 44-year-old male presenting to the emergency department with left-sided chest pain indigestion symptoms. He states he has a history of a potential aneurysm that he is being scheduled to get evaluation with Cardiology outpatient next week. He also has a history of reflux esophagitis, GERD, recent EGD, potential gastroparesis and insulin-dependent diabetes. Patient presents with worsening pain and wants to be evaluated. Endorses shortness of breath. He is saturating well on room air, not any discomfort, no tachypnea, tachycardia, hypoxia. Blood pressure mildly elevated but not severe range. He has strong symmetric pulses in clear breath sounds throughout. Soft nondistended nontender abdomen. Differential diagnosis includes ACS, musculoskeletal pain, pneumothorax, pneumonia, less likely thromboembolic event such as PE given low Wells criteria. I do not have any reported evidence of aneurysm in the chart or previous imaging studies however given patient's reports and symptomatology a CT angiography was ordered for further delineation as well as an ACS workup with serial troponin, EKG, chest x-ray, BNP. Patient provided morphine, Pepcid, fluids and a GI cocktail and re-evaluated. Placed on pvc monitor and pulse oximetry. Patient's laboratory studies are all reassuring without any significant leukocytosis or anemia worse than baseline. Normal platelet count. Normal coagulation panel. Electrolytes are unremarkable. Normal renal function. LFTs normal. Negative troponin. Negative lipase, negative BNP. Glucose 76 and he was provided oral food and drink without difficulty tolerating oral intake. Chest x-ray without any focal findings or infiltrate. CT angiography just showing a moderate-sized hiatal hernia which could explain his symptoms but otherwise no aortic aneurysms in the chest abdomen or pelvis and no pulmonary embolism. Lungs are clear. Given patient's negative cardiac workup with serial troponins being undetectable and negative CT angiography the patient is safe for discharge home at this time with regular primary care provider follow-up. Medical Records Data Attestation: I reviewed the patient's medical records. Lab Data Attestation: I reviewed the patient's lab results. 04/12/25 21:07 04/12/25 21:07 Labs: Lab Results 04/12/25 04/12/25 04/13/25 Range/Units 21:07 22:40 00:43 WBC 10.6 H (4.5-10.0) K/mm3 RBC 4.73 (4.6-6.20) M/mm3 Hgb 13.5 L (14.0-18.0) g/dL Hct 41.0 L (42.0-52.0) % MCV 86.7 (80-100) fl MCH 28.5 (26-34) pg MCHC 32.9 (32-36) g/dl RDW 13.1 (11.5-14.5) % Plt Count 290 (150-375) k/mm3 MPV 9.4 (7.4-10.4) fl Immature Gran % (Auto) 0.8 H (0-0.5) % Neut % (Auto) 59.3 (45.5-73.1) % Lymph % (Auto) 23.3 (18.3-44.2) % Troup % (Auto) 5.6 (2.6-8.5) % Eos % (Auto) 10.2 H (0-4.4) % Baso % (Auto) 0.8 (0.2-1.2) % Lymph # (Auto) 2.47 (0.9-3.2) K/mm3 Troup # (Auto) 0.6 (0.1-0.6) K/mm3 Eos # (Auto) 1.1 H (0-0.3) K/mm3 Baso # (Auto) 0.1 (0.0-0.1) K/mm3 Abs Immat Gran (auto) 0.08 H (0.00-0.031) K/mm3 Absolute Neuts (auto) 6.3 (1.3-6.7) K/mm3 Absolute Nucleated RBC 0.000 (0.0-0.012) K/mm3 Nucleated RBC % 0.0 (0.0-0.2) % PT 12.5 (11.1-14.7) Seconds INR 0.9 APTT 27.6 (22.3-36.8) Seconds Sodium 133 L (137-145) mmol/L Potassium 4.1 (3.4-5.0) mmol/L Chloride 102 (98-107) mmol/L Carbon Dioxide 25 (22-30) mmol/L Anion Gap 6 (4-12) mmol/L BUN 12 (9-20) mg/dL Creatinine 0.92 (0.7-1.3) mg/dL Estim Creat Clear Calc 119 ml/min Estimated GFR > 60 (59 - ) Glucose 301 H (65-110) mg/dL POC Capillary Glucose 76 (65-105) mg/dl Calcium 9.0 (8.4-10.2) mg/dL Total Bilirubin 0.2 (0.2-1.3) mg/dL AST 24 (17-59) U/L ALT 21 (6-50) U/L Alkaline Phosphatase 54 (38-126) U/L Troponin I < 0.012 < 0.012 (0.000-0.034) ng/mL NT-Pro-B Natriuret Pep 46 (19.9-100) pg/mL Total Protein 7.7 (6.3-8.2) g/dL Albumin 4.2 (3.5-5.1) g/dL Lipase 47 (23-300) U/L Imaging Data Attestation: I personally reviewed and interpreted this imaging study as follows: My impression: Impressions Chest X-Ray 04/12/25 21:26 IMPRESSION: No focal infiltrate or effusion. Chest/Abdomen/Pelvis CTA 04/12/25 22:52 IMPRESSION: No pulmonary embolus. No aortic aneurysm. Moderate hiatal hernia. The lungs are clear. ECG Data EKG #1: Attestation: I personally reviewed and interpreted this ECG as follows: ECG completion date: 04/12/25 ECG completion time: 21:04 Prior ECG tracings: not available for review Interpretation: No ST segment elevations, depressions or acute inversions. QTC 428, QRS 100, IN interval 148. 93 beats per minute. No ST segment concerns, no previous EKG for direct comparison. Normal sinus rhythm with incomplete right bundle-branch pathology. Discharge Plan Discharge Clinical Impression: Chest pain, Esophageal hiatal hernia Patient Disposition: Home Condition: Stable Instructions: Antibiotic Form, Chest Pain (ED) Additional Instructions: Your CT scan shows no signs of any aneurysm in your chest abdomen or pelvis. Your cardiac markers are undetectable 2 times. You have a hiatal hernia which was seen previously and on EGD and it can cause these symptoms, but otherwise there are no urgent or emergent concerns here and you can follow-up with regular doctors and keep your cardiology appointment scheduled for next week. Return with any emergencies. Patient Language: German Prescriptions: No Action losartan 25 mg tablet 25 mg PO DAILY Qty: 90 1RF rosuvastatin 40 mg tablet 40 mg PO DAILY Qty: 90 1RF insulin lispro [Humalog U-100 Insulin] 100 unit/mL solution 100 unit continuous subcutaneous infusion DAILY 90 Days Qty: 90 1RF lidocaine 5 % adhesive patch,medicated 3 patch topical DAILY Qty: 15 0RF Rx Instructions: leave on most painful area for up to 12 hrs (DME) Dexcom G7 Certified Medical Transcriptionist Misc See Rx Instructions .ROUTE .MEDSUPPLY Qty: 1 0RF Rx Instructions: As directed (DME) Ketostix Strip See Rx Instructions .ROUTE .COMPLEX Qty: 100 0RF Dose Instruction: DIRECTED Rx Instructions: DIRECTED insulin lispro [Humalog KwikPen Insulin] 100 unit/mL insulin pen 60 unit subcut TIDWMEAL MDD 60 Qty: 60 1RF Rx Instructions: Take 1 unit for every 5 grams of carbs and 1 unit for every 25mg/dL >150 mg/dL pen needle, diabetic [TRUEplus Pen Needle] 31 gauge x 1/4 needle 1 ea miscellaneous .COMPLEX Qty: 400 1RF Rx Instructions: 1 ea as directed four times a day; Gvoke HypoPen 2-Pack 1 mg/0.2 mL auto-injector 1 mg subcut PRN PRN (Reason: Hypoglycemia) Qty: 0.4 2RF Rx Instructions: may repeat once after 15 minutes if no response pantoprazole 40 mg tablet,delayed release (DR/EC) 40 mg PO QAM Qty: 30 3RF albuterol sulfate 90 mcg/actuation Aerosol Powdr Breath Activated 2 inh INHALATION Q4-6H PRN (Reason: Shortness Of Breath Or Wheezing) (DME) Dexcom G7 Sensor Device See Rx Instructions .ROUTE .COMPLEX Qty: 9 1RF Dose Instruction: CHANGE EVERY 10 DAYS DIRECTED Rx Instructions: CHANGE EVERY 10 DAYS DIRECTED metoclopramide HCl 10 mg tablet See Rx Instructions .ROUTE .COMPLEX Qty: 120 1RF Dose Instruction: TAKE 1 TABLET BY MOUTH BEFORE MEALS AND AT BEDTIME Rx Instructions: TAKE 1 TABLET BY MOUTH BEFORE MEALS AND AT BEDTIME insulin degludec [Tresiba FlexTouch U-200] 200 unit/mL (3 mL) insulin pen 55 unit subcut DAILY Qty: 27 1RF Follow-up/Referrals: Nick Lugo DO [Primary Care Provider] - Time of Disposition: 01:16 Quality HEART score for chest pain patients History: slightly suspicious ECG: normal Age: < or = to 45 years Risk factors: 1 or 2 risk factors Troponin: < or = to 1x normal limit Heart score: 1
[2025-04-12] MEDS: BELLADONNA ALK/PHENOB ELIX 10 ML, MAG HYDROX/ALUMINUM HYD/SIMETH 30 ML, LIDOCAINE 2% VI... PO (21:14)
[2025-04-12 21:15] LABS: Basophils Absolute Auto 0.1 K/mm3 (0.0-0.1); Basophils Percent Auto 0.8 % (0.2-1.2); Eosinophils Absolute Auto 1.1 K/mm3 (0-0.3); Eosinophils Percent Auto 10.2 % (0-4.4); Hemoglobin 13.5 g/dL (14.0-18.0); Immature Granulocyte Absolute 0.08 K/mm3 (0.00-0.031); Immature Granulocyte Percent A 0.8 % (0-0.5); Lymphocytes Absolute Auto 2.47 K/mm3 (0.9-3.2); Lymphocytes Percent Auto 23.3 % (18.3-44.2); Mean Corpuscular HGB Conc 32.9 g/dl (32-36); Mean Corpuscular Hemoglobin 28.5 pg (26-34); Mean Corpuscular Volume 86.7 fl (80-100); Mean Platelet Volume 9.4 fl (7.4-10.4); Monocytes Absolute Auto 0.6 K/mm3 (0.1-0.6); Monocytes Percent Auto 5.6 % (2.6-8.5); Neutrophils Absolute Auto 6.3 K/mm3 (1.3-6.7); Neutrophils Percent Auto 59.3 % (45.5-73.1); Platelet Count Result 290 k/mm3 (150-375); Red Blood Count 4.73 M/mm3 (4.6-6.20); Red Cell Distribution Width 13.1 % (11.5-14.5); White Blood Count 10.6 K/mm3 (4.5-10.0)
[2025-04-12] MEDS: FAMOTIDINE 20 MG/2 ML VIAL IV PUSH (21:17)
[2025-04-12] MEDS: MORPHINE SULFATE (*CRX) 4 MG/ML INJ IV PUSH (21:18)
[2025-04-12] MEDS: LACTATED RINGERS 1,000 ML 999 ML IV CONT (21:20)
--- OUTSIDE RECORDS SUMMARY | 2025-04-12 21:24 | XMS_ITS | Clinical Summary ---
Author Organization [facility] Address [address] [place] [address] Care Team Providers Care Dental Amalgam Processor Name Role Phone Purvi Tavares MD Primary Care Provider Source Comments [facility],non-owned Affiliates and Associated Physician Practices is amultiple site organization consisting of ambulatory clinics and hospital sitesin [place], [place], [place] and [place]. This disclosure is being madepursuant to the Care Everywhere program and may not contain all information available regarding this patient. Last updated 18.[facility] [place] Allergies Active Allergy Reactions Criticality Noted Date [...] patient's age to complete this topic Insurance [address] PLAN [facility] SELF PAY NO INSURANCE Member Subscriber Plan / Payer (Ef fective for All Dates) Name:Jim Santos Member ID:Not on file Relation to Subscriber:Not on file Name:JIM SANTOS Subscriber ID:Not on file (Home) Address: [address] [place] [address] Payer ID:Not on file Group ID:Not on file Type:Self Pay Address: [place], [place] Care Teams Dental Amalgam Processor Relationship Specialty Start Date End Date Purvi Tavares MD [address] [place], [place] [id number] PCP - General 06/12/17
--- OUTSIDE RECORDS SUMMARY | 2025-04-12 21:24 | XMS_ITS | CONTINUITY OF CARE DOCUMENT ---
Author Name [email or web address] perez Address Unknown Organization [facility] Address [address] [place] [address] Phone [phone] Care Team Providers Care Dairy Associate Name Role Phone Rodo SHARP, Philly Unavailable CALVIN SUBRAMANIAN MD Unavailable RIMA SHARP, YELENA Unavailable INSURANCE PROVIDERS Payer name Policy type / Coverage type [place] red [employer] party ID [facility] Medicaid [id number]
[2025-04-12 21:29] LABS: Alanine Aminotransferase 21 U/L (6-50); Albumin Level 4.2 g/dL (3.5-5.1); Alkaline Phosphatase 54 U/L (38-126); Anion Gap 6 mmol/L (4-12); Aspartate Amino Transferase 24 U/L (17-59); Bilirubin,Total 0.2 mg/dL (0.2-1.3); Blood Urea Nitrogen 12 mg/dL (9-20); Carbon Dioxide 25 mmol/L (22-30); Chloride 102 mmol/L (98-107); Estimated CRCL calculation 119 ml/min; Estimated Glomerular Filt Rate > 60; Glucose 301 mg/dL (65-110); Lipase 47 U/L (23-300); Potassium 4.1 mmol/L (3.4-5.0); Sodium 133 mmol/L (137-145); Total Protein 7.7 g/dL (6.3-8.2)
[2025-04-12 21:30] LABS: INR 0.9; Partial Thromboplastin Time 27.6 Seconds (22.3-36.8); Prothrombin Time 12.5 Seconds (11.1-14.7)
[2025-04-12 21:41] LABS: Troponin I < 0.012 ng/mL (0.000-0.034)
[2025-04-12 21:52] LABS: NT Pro B Type Natriuretic Pept 46 pg/mL (19.9-100)
[2025-04-12 22:41] LABS: Glucose Point of Care 76 mg/dl (65-105)
--- NOTE | 2025-04-12 23:01 | PC.NURSE ---
pt mother verbalized that pt bs dropping and on his home monitor showing 70. EDP aware. No current orders until CT results.
--- NOTE | 2025-04-12 23:08 | PC.NURSE ---
EDP approved pt to eat. Pt given 2 OJ, 2 PB, 2 ana crackers.
[2025-04-13] VITALS (10 sets, daily range): BP systolic 115–129; BP diastolic 66–74; PULSE 88–96; RESP 12–23; TEMP 36.6–36.9; O2SAT 95–100
--- NOTE | 2025-04-13 00:11 | PC.NURSE ---
pt mother requesting pain medication for the patient. EDP Aware
[2025-04-13 01:10] LABS: Troponin I < 0.012 ng/mL (0.000-0.034)
== END 2025-04-13 01:26 | disposition home or self-care (01) ==
PROVIDERS: Emergency Provider Student in an Organized Health Care Education/Training Program; PCP Internal Medicine
DX: R07.9 Chest pain, unspecified (principal); K21.9 Gastro-esophageal reflux disease without esophagitis; K21.00 Gastro-esophageal reflux disease with esophagitis, without bleeding; K44.9 Diaphragmatic hernia without obstruction or gangrene; E10.9 Type 1 diabetes mellitus without complications; E66.9 Obesity, unspecified; Z68.36 Body mass index [BMI] 36.0-36.9, adult; Z90.49 Acquired absence of other specified parts of digestive tract; Z79.4 Long term (current) use of insulin; Z79.899 Other long term (current) drug therapy; I45.10 Unspecified right bundle-branch block; R94.31 Abnormal electrocardiogram [ECG] [EKG]
CPT/HCPCS: 36415; 71045; 71275; 74174; 80053; 82948; 83690; 83880; 84484; 85025; 85610; 85730; 93005; 96374; 96375; 99284; A9270; J2270; J7120; Q9967

== ENCOUNTER 2025-06-01 07:44 | Outpatient (CLI) | payer OTHER, SELFPAY ==
--- OUTSIDE RECORDS SUMMARY | 2025-06-01 07:47 | XMS_ITS | Clinical Summary ---
Author Organization [facility] Address [address] [place] [address] Care Team Providers Care Caravan Park And Camping Ground Manager Name Role Phone Purvi Tavares MD Primary Care Provider Source Comments [facility],non-owned Affiliates and Associated Physician Practices is amultiple site organization consisting of ambulatory clinics and hospital sitesin [place], [place], [place] and [place]. This disclosure is being madepursuant to the Care Everywhere program and may not contain all information available regarding this patient. Last updated 18.[facility] [employer] Allergies Active Allergy Reactions Criticality Noted Date [...] of 3 - 19+ 3-dose series) 1999 HPV VACCINE (1 - 3-dose SCDM series) 2007 COVID-19 VACCINE (1 - 2024-2 5 season) 2024 DEPRESSION SCREENING 10/27/2024 INFLUENZA VACCINE (#1) 2025 ZOSTER VACCINE (1 of 2) 2030 [...] patient's age to complete this [place] [address] [facility] [place] [address] PLAN [facility] SELF PAY NO INSURANCE Member Subscriber Plan / Payer (Ef fective for All Dates) Name:Jim Santos Member ID:Not on file Relation to Subscriber:Not on file Name:JIM SANTOS Subscriber ID:Not on file (Home) Address: [address] [place] [address] Payer ID:Not on file Group ID:Not on file Type:Self Pay Address: [place], [place] Care Teams Caravan Park And Camping Ground Manager Relationship Specialty Start Date End Date Purvi Tavares MD [address] [place], [place] [id number] PCP - General 06/12/17
--- NOTE | 2025-07-21 12:31 | P.SLEEP_ITS ---
Sleep Study - Home Unattended Date of Study: 06/01/25 Ordering Provider: Fernando Gary DO Interpreting Provider: Mara Tang MD Home Sleep Study Type: Watch PAT Height: 1.8 m Weight: 113.398 kg Body Mass Index: 34.8 Neck Circumference (inches): 18.25 [place]: 11 Reason for Sleep Study Hypersomnolence, poor quality sleep Sleep History Jim Santos is a 44-year-old man with loud snoring, witnessed apneas, choking and gasping at night, and difficulty breathing when he sleeps on his back. He has hypertension, decreased LV function, and DM. He works rotating shifts. There is no immediate relative with sleep disordered breathing. He does not have a morning headache or a dry mouth on waking. He has heartburn at night, and wakes twice to urinate overnight. He has difficulty falling asleep and wakes up too early. He is not anxious about his sleep. Once he gets to sleep, he does not have trouble staying asleep, and when he wakes at night, he is able to return to sleep without problems. He does not awaken feeling refreshed, and he has daytime fatigue. He does not have an urge to fall asleep in the day, and does not have drowsy driving. He does not grind his teeth at night, does not have restless feelings in his legs not does he kick at night. He Insomnia Severity Index score is 12, moderately elevated, indicating moderate difficulty with insomnia symptoms. Normal bedtime is 2:00 a.m., spending 5 hours and 15 minutes asleep. On days off, his bedtime is 5:00 a.m. He does not take planned naps. He has difficulties sleeping during the usual time that others sleep. He does not have muscle weakness with strong emotion, paralysis on falling asleep or upon waking, vivid dream like scenes on falling asleep or on waking, nor does he have dreams during daytime naps. Habits: Tobacco : 6-20 cigarettes per day Caffeine : more than 5 per day Alcohol : none Recreational substance: marijuana PMFSH Past Medical History Medical History (Updated 07/21/25 @ 12:54 by Mara Tang MD) Ejection fraction < 50% Hypertension Abnormal CT scan, stomach Obesity Weight gain Change in bowel habits GERD (gastroesophageal reflux disease) Abdominal distension Early satiety Nausea and vomiting Chronic GERD Type 1 diabetes Surgical History Surgical History Hx of cholecystectomy Hx of appendectomy Family History Family History Mother Cerebrovascular accident Sibling Cerebrovascular accident Social History Social History Social History: The patient is single. He lives with his brother. He has 2 children. Lifelong nonsmoker. He uses marijuana. Code status full code. Smoking status: Never smoker Second hand tobacco smoke exposure: No Substance use: current Substance use type: marijuana Do You Feel Safe in your Home?: Yes Lack of Transportation: No Lack of Food: Never True Current Housing: I Have Housing Concerned About Future Housing: YES Difficulty Paying Gas/Electric Bills: YES Difficulty Paying for Meds: YES Currently Unemployed: YES Education: High School Diploma/GED Difficulty w/ Childcare or Family Care: No Living arrangements: alone Medications Home Medications ?Medication ?Instructions ?Recorded ?Confirmed ?Type albuterol sulfate 90 mcg/actuation 2 inh inhalation Q4 -6H PRN 05/22/23 04/25/25 History breath activated powder inhaler Shortness Of Breath Or Wheezing blood-glucose,monitoring tech,cont #1 ea 07/15/24 04/25/25 Rx (Dexcom G7 Service Restorer Emergency) acetone (urine) test (Ketostix #100 strips 08/10/24 Rx strips) lidocaine 5 % topical patch 3 patch topical DAILY #15 ea 12/21/24 04/25/25 Rx rosuvastatin 40 mg tablet 40 mg PO DAILY #90 tabs 02/03/2004/25/25 Rx pantoprazole 40 mg tablet,delayed 40 mg PO QAM #30 tab s 02/15/25 04/25/25 Rx release glucagon 1 mg/0.2 mL subcutaneous 1 mg (0.2 mL) subcut PRN PRN 03/29/25 04/25/25 Rx auto-injector (Gvoke HypoPen Hypoglycemia #0.4 mL 2-Pack) metoclopramide HCl 10 mg tablet See Rx Instructions .R oute 05/30/25 Rx .COMPLEX #120 tabs blood-glucose sensor (Dexcom G7 #9 ea 07/14/25 Rx Sensor device) insulin glargine 100 unit/mL (3 55 unit (0.55 mL) subc ut DAILY PRN 07/14/25 Rx mL) subcutaneous pen (Lantus insulin pump malfunction #60 mL Solostar U-100 Insulin) insulin glargine 100 unit/mL See Rx Instructions .Rout e 07/14/25 Rx subcutaneous solution (Lantus .COMPLEX #200 mL U-100 Insulin) insulin lispro 100 unit/mL 100 unit continuous subcuta neous 07/14/25 Rx subcutaneous solution (Humalog infusion DAILY 90 days #90 mL U-100 Insulin) pen needle, diabetic 31 gauge x 1 ea miscellaneous .CO MPLEX #400 ea 07/14/25 Rx 10/30 (TRUEplus Pen Needle) Sleep Procedure The sleep study was completed using Decisive BIT a technically adequate device with seven channels: peripheral arterial tone, actigraphy, body position, snore, respiratory movement, pulse oximetry, sleep staging, and heart rate. Prior to using the device, the patient received verbal and written instructions for its application and was provided with the help desk phone number for additional telephonic instruction with 24-hour availability of qualified personnel to answer questions. Sleep Architecture The total recording time is 7 hours 4 minutes. The total sleep time is 5 hours 41 minutes. Sleep latency is 17 minutes. REM latency is 73 minutes. The patient had 11 episodes of waking. Sleep architecture shows 22.1%% deep sleep, 51.9% light sleep, and 25.7% stage REM. The patient spent 306.5 minutes, 90% of total sleep time in the supine position. Respiratory Analysis The overall AHI is 18.5 using 3% criteria. The overall AHI is 11.8 using 4% criteria. The central AHI is 0. The REM AHI was 38.6. The NREM AHI was 11.3. The supine AHI was 19.6, the nonsupine AHI was 8.8. There was no evidence of Donal-Dorantes respirations. Oximetry Data The oxygen desaturation index is 9.1. The mean saturation is 94%, the lowest saturation is 62%, and the patient spent 3.7 minutes, 1.1% of the sleep time, below 88%. Snoring Profile Snoring was present, average intensity 45 dB. The patient snored above 45 dB for 139.5 minutes, 40.9% of the sleep time. Cardiac Profile The average pulse is 80 beats per minute, the lowest pulse is 70 beats per minute, and the highest pulse is 96 beats per minute. Cardiac rhythm analysis in sleep does not show atrial fibrillation. Assessment and Plan Assessment and Plan (1) Obstructive sleep apnea: Code(s): G47.33 - Obstructive sleep apnea (adult) (pediatric) Status: Acute Assessment and Plan: This home sleep test using WatchPat performed on 07/11/2025 shows moderate obstructive sleep apnea with an apnea hypopnea index of 18.5 (p>3%) and desaturation to 62%with loud snoring. He does not have central apneas. He has hypertension. The patient works rotating shifts, and he may have difficulty with quality sleep due to his works schedule. I recommend that this patient be prescribed Resmed AirSense 11 AutoPAP 5-15 cm H2O, CPAP mask/filters/tubing and humidifier chamber. This should be used with all episodes of sleep. Compliance should be reviewed within 31-90 days of starting therapy for usage greater than 4 hours per night greater than 70% of the nights. The patient should be asked about symptoms such as excessive daytime sleepiness, quality of sleep, decreased nocturia, increased mental functioning such as memory, mood, and concentration. BMI is 34.9. Weight management is advised. Clinical data suggests that weight loss of 10% can reduce the severity of respiratory events and snoring and improve AHI by as much as 25%. Treating obstructive sleep apnea can facilitate weight loss through hormonal mechanisms. Sleep hygiene advice for shift workers When possible, maximize regularity in activity and sleep schedule Regularity in the timing of sleep, food intake, and social activity helps to?stabilize the biological clock. Minimizing discrepancies in sleep timing between on-shift and off-shift periods may help you adapt to a fixed-shift schedule and may also help?you adapt?to each shift type in a rotating-shift schedule (depending on rotation speed and direction). Create a sleep-friendly bedroom environment Make sure that your bed is comfortable and that your bedroom is dark, quiet, and cool (around 65?F or 18?C). Blackout shades may be particularly important to block sunlight during daytime sleep. Creating constant background noise in the sleep environment with a fan or?humidifier, for example, will eliminate unexpected sounds that would otherwise wake you up. Limit exposure to bright light before daytime sleep Exposure to bright light (eg, sunlight during the morning commute home following a manufacturing supervisor 2nd shift) can be alerting and may also set your biological clock to a time that interferes with daytime sleep. Make the last hour before bed a wind-down time Engage in relaxing and pleasant activities, dim or block light in the room, and have a light snack. Do not use alcohol to help you sleep?and do not?consume alcohol too close to bedtime Although alcohol may help you to fall asleep more easily, it disrupts your sleep during the night by causing frequent awakenings. One drink of alcohol should not be consumed within three hours of bedtime. Smoking and other drugs will disrupt your sleep If you smoke, do not smoke too close to bedtime or if?you wake up?during the intended sleep period. Most drugs of abuse can disrupt sleep. Avoid caffeinated products within six hours of bedtime In addition to coffee, these may include tea, chocolate, and?many sodas. Exercise regularly, but avoid activities that raise body temperature close to bedtime Regular exercise can improve sleep quality, but exercising or having a warm bath too close to bedtime can disrupt your ability to fall asleep. Warm baths should be avoided within 1.5 hours of bedtime. Avoid consuming more than 8 to 10 ounces of liquids close to bedtime A full or semi-full bladder can contribute to awakenings. Restrict liquids close to bedtime and empty your bladder just before going to?bed. Data The data obtained during this sleep study is adequate for interpretation. Certification This sleep study has been reviewed by a board certified sleep medicine physician.
[2025-07-21 13:10] VITALS: BMI 34.8
== END 2025-07-15 13:36 | disposition home or self-care (01) ==
LOC: ANHCSM 07:45
PROVIDERS: PCP Internal Medicine; Visit Provider Internal Medicine Cardiovascular Disease
DX: G47.10 Hypersomnia, unspecified (principal); G47.33 Obstructive sleep apnea (adult) (pediatric)
CPT/HCPCS: 95800